=== PATIENT | male | born 1955 | race Caucasian/White ===

== ENCOUNTER → 2017-10-12 08:43 | Outpatient (CLI) | payer BC, SELFPAY ==
[2017-10-12 13:02] LABS: Absolute Lymphocyte Count 1.64 X10^3/ul (0.83-4.51); Absolute Neutrophil Count 2.6 X10^3/uL (2.0-7.7); Basophil# 0.03 X10^3/uL; Basophil% 0.6 % (0-1); Eosinophil# 0.34 X10^3/uL; Eosinophils% 6.4 % (0-5); Hematocrit 42.6 % (40-54); Hemoglobin 13.3 g/dl (13.0-16.5); Lymphocyte # 1.64 X10^3/ul (4.0); Lymphocyte % 31.1 % (19-41); Mean Corp Hgb Conc 31.2 g/gl (32-36); Mean Corpuscular Hgb 27.2 pg (27.0-32.0); Mean Corpuscular Volume 87.1 fL (80-94); Mean Platelet Vol. 11.4 fl (6.2-12.0); Monocyte# 0.65 X10^3/uL; Monocyte% 12.3 % (0-10); Neutrophil # 2.62 X10^3/uL (2.7-7.7); Neutrophil % 49.6 % (47-70); Platelet Count 269 K/mm3 (150-450); RBC Distribution Width CV 17.3 % (11.6-14.6); RBC Distribution Width SD 55.3 fl (35.1-43.9); Red Blood Count 4.89 M/mm3 (4.6-6.2); White Blood Count 5.3 K/mm3 (4.4-11.0)
[2017-10-12 13:05] LABS: POSITIVE COUNT NO; POSITIVE DIFFERENTIAL NO; POSITIVE MORPHOLOGY NO
[2017-10-12 13:07] LABS: Hemoglobin A1c 9.3 % (4.2-6.3)
[2017-10-12 13:13] LABS: ALB/GLOB Ratio 0.9 RATIO (0.9-2.4); AST(SGOT) 31 U/L (15-37); Alanine Aminotransfer ALT/SGPT 47 U/L (16-61); Albumin, Serum 3.9 g/dL (3.2-5.0); Alkaline Phosphatase 98 U/L (45-117); Anion Gap 8 (5-15); BUN 42 mg/dL (7-18); BUN/Creat Ratio 14.1 RATIO (10-20); Calcium,Total 9.3 mg/dL (8.5-10.1); Chloride 97 mmol/L (98-107); Creatinine, Serum 2.97 mg/dL (0.70-1.30); EST Glomerular Filtration Rate 23 mL/min (>60); Est Glom Filt Rate - Afr Amer 28 mL/min (>60); Globulin 4.4 g/dL (2.2-4.2); Glucose 151 mg/dL (74-106); Potassium 5.2 mmol/L (3.5-5.1); Protein, Total 8.3 g/dL (6.4-8.2); Sodium Level 135 mmol/L (136-145); Thyroid Stim Hormone (TSH) 2.87 uIU/mL (0.358-3.74)
[2017-10-12 13:18] LABS: Microalbumin:Creatinine Ratio 28.9 mg/g CRE (<30 mg/g CRE)
== END ==
PROVIDERS: Family Provider Family Medicine; PCP Family Medicine; Visit Provider Family Medicine
DX: E11.65 Type 2 diabetes mellitus with hyperglycemia (principal); E78.5 Hyperlipidemia, unspecified; E11.22 Type 2 diabetes mellitus with diabetic chronic kidney disease; N18.9 Chronic kidney disease, unspecified
CPT/HCPCS: 36415; 80053; 82043; 82570; 83036; 84443; 85025

== ENCOUNTER → 2017-10-13 08:13 | Outpatient (CLI) | payer BC, SELFPAY ==
[2017-10-13 12:21] LABS: ALB/GLOB Ratio 0.8 RATIO (0.9-2.4); AST(SGOT) 41 U/L (15-37); Alanine Aminotransfer ALT/SGPT 52 U/L (16-61); Albumin, Serum 3.7 g/dL (3.2-5.0); Alkaline Phosphatase 96 U/L (45-117); Anion Gap 8 (5-15); BUN 29 mg/dL (7-18); BUN/Creat Ratio 17.1 RATIO (10-20); Calcium,Total 8.9 mg/dL (8.5-10.1); Chloride 100 mmol/L (98-107); EST Glomerular Filtration Rate 43 mL/min (>60); Est Glom Filt Rate - Afr Amer 53 mL/min (>60); Globulin 4.4 g/dL (2.2-4.2); Glucose 176 mg/dL (74-106); Potassium 4.4 mmol/L (3.5-5.1); Protein, Total 8.1 g/dL (6.4-8.2); Sodium Level 136 mmol/L (136-145)
== END ==
PROVIDERS: Family Provider Family Medicine; PCP Family Medicine; Visit Provider Family Medicine
DX: N18.9 Chronic kidney disease, unspecified (principal)
CPT/HCPCS: 36415; 80053

== ENCOUNTER → 2017-10-16 08:45 | Outpatient (CLI) | payer BC, SELFPAY ==
[2017-10-16 13:02] LABS: Anion Gap 4 (5-15); BUN 15 mg/dL (7-18); BUN/Creat Ratio 10.2 RATIO (10-20); Calcium,Total 8.5 mg/dL (8.5-10.1); Chloride 102 mmol/L (98-107); Creatinine, Serum 1.47 mg/dL (0.70-1.30); EST Glomerular Filtration Rate 51 mL/min (>60); Est Glom Filt Rate - Afr Amer 62 mL/min (>60); Glucose 237 mg/dL (74-106); Potassium 4.6 mmol/L (3.5-5.1); Sodium Level 135 mmol/L (136-145)
== END ==
PROVIDERS: Family Provider Family Medicine; PCP Family Medicine; Visit Provider Family Medicine
DX: N17.9 Acute kidney failure, unspecified (principal); E86.0 Dehydration
CPT/HCPCS: 36415; 80048

== ENCOUNTER → 2017-10-30 08:21 | Outpatient (CLI) | payer BC, SELFPAY ==
[2017-10-30 12:18] LABS: Anion Gap 4 (5-15); BUN 13 mg/dL (7-18); BUN/Creat Ratio 9.2 RATIO (10-20); Calcium,Total 8.4 mg/dL (8.5-10.1); Chloride 100 mmol/L (98-107); Creatinine, Serum 1.42 mg/dL (0.70-1.30); EST Glomerular Filtration Rate 53 mL/min (>60); Est Glom Filt Rate - Afr Amer 65 mL/min (>60); Glucose 198 mg/dL (74-106); Potassium 4.4 mmol/L (3.5-5.1); Sodium Level 136 mmol/L (136-145)
== END ==
PROVIDERS: Family Provider Family Medicine; PCP Family Medicine; Visit Provider Family Medicine
DX: N17.9 Acute kidney failure, unspecified (principal)
CPT/HCPCS: 36415; 80048

== ENCOUNTER → 2017-11-17 10:01 | Outpatient (CLI) | payer BC, SELFPAY ==
[2017-11-17 11:48] LABS: PSA,Total - Annual Screen 1.63 ng/mL (0.00-4.00)
== END ==
PROVIDERS: Family Provider Family Medicine; PCP Family Medicine; Visit Provider Nurse Practitioner Adult Health
DX: E29.1 Testicular hypofunction (principal); Z12.5 Encounter for screening for malignant neoplasm of prostate
CPT/HCPCS: 36415; 84153; 84403; G0103

== ENCOUNTER → 2018-01-18 08:46 | Outpatient (CLI) | payer BC, SELFPAY ==
--- NOTE | 2018-01-18 08:46 | DT_ITS ---
This patient was seen during an EMR downtime January 11, 2018 - January 18, 2018. This patient may have a combination of paper and electronic documentation or all paper documentation. All documentation is viewable within the e-chart portion of [facility] for each patient visit.
[2018-01-18 12:28] LABS: Absolute Lymphocyte Count 1.55 X10^3/ul (0.83-4.51); Absolute Neutrophil Count 1.6 X10^3/uL (2.0-7.7); Basophil# 0.04 X10^3/uL; Eosinophil# 0.19 X10^3/uL; Eosinophils% 4.9 % (0-5); Hematocrit 42.4 % (40-54); Lymphocyte # 1.55 X10^3/ul (4.0); Lymphocyte % 39.7 % (19-41); Mean Corp Hgb Conc 30.7 g/gl (32-36); Mean Corpuscular Hgb 25.8 pg (27.0-32.0); Mean Corpuscular Volume 84.1 fL (80-94); Monocyte# 0.54 X10^3/uL; Monocyte% 13.8 % (0-10); Neutrophil # 1.58 X10^3/uL (2.7-7.7); Neutrophil % 40.6 % (47-70); Platelet Count 257 K/mm3 (150-450); RBC Distribution Width SD 48.7 fl (35.1-43.9); Red Blood Count 5.04 M/mm3 (4.6-6.2); White Blood Count 3.9 K/mm3 (4.4-11.0)
[2018-01-18 12:38] LABS: ALB/GLOB Ratio 0.8 RATIO (0.9-2.4); AST(SGOT) 27 U/L (15-37); Alanine Aminotransfer ALT/SGPT 36 U/L (16-61); Albumin, Serum 3.5 g/dL (3.2-5.0); Alkaline Phosphatase 87 U/L (45-117); Anion Gap 6 (5-15); BUN 21 mg/dL (7-18); Calcium,Total 8.8 mg/dL (8.5-10.1); Chloride 101 mmol/L (98-107); EST Glomerular Filtration Rate 50 mL/min (>60); Est Glom Filt Rate - Afr Amer 61 mL/min (>60); Globulin 4.2 g/dL (2.2-4.2); Glucose 221 mg/dL (74-106); Potassium 4.4 mmol/L (3.5-5.1); Protein, Total 7.7 g/dL (6.4-8.2); Sodium Level 138 mmol/L (136-145)
[2018-01-18 12:40] LABS: POSITIVE COUNT NO; POSITIVE DIFFERENTIAL NO; POSITIVE MORPHOLOGY NO
== END ==
PROVIDERS: Family Provider Family Medicine; PCP Family Medicine; Visit Provider Family Medicine
DX: N18.9 Chronic kidney disease, unspecified (principal); E11.65 Type 2 diabetes mellitus with hyperglycemia; E78.5 Hyperlipidemia, unspecified
CPT/HCPCS: 36415; 80053; 84443; 85025

== ENCOUNTER 2018-03-05 07:53 | Day surgery (SDC) | payer BC, SELFPAY ==
[2018-03-05 08:17] VITALS: BP 164/76; PULSE 72; RESP 14; TEMP 36.9; O2SAT 98; BMI 30.5
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
[2018-03-05 08:46] LABS: Bedside Glucose 91 mg/dL (70-110)
--- NOTE | 2018-03-05 09:32 | PCM.OPRPT ---
Problem List (1) Screen for colon cancer Status: Acute Report of Operation Date of Procedure: 03/05/18 Pre-Operative Diagnosis: Screening for colon cancer Post-Operative Diagnosis: Normal colonoscopy Surgery/Procedure Performed:: Colonoscopy Description of Procedure: The major risks and benefits associated with the procedure were explained to the patient in detail. The patient verbalized understanding and agreement with the same. The patient was brought to the endoscopy suite. After adequate sedation was achieved, the patient was placed in the left lateral decubitus position and a digital rectal exam was performed. This examination was within normal limits. A well-lubricated colonoscope was then inserted into the rectum and advanced under direct visualization to the level of the cecum. The bowel prep was fair. The cecum was identified by both visual and anatomic landmarks. A photograph was taken of the end of the cecum. The scope was then fully withdrawn while examining the color, texture, anatomy and integrity of the mucosa from the cecum to the anal canal. The findings were consistent with normal colonic mucosa. Over 6 minutes were taken to examine the colonic mucosa. Upon reaching the rectum the scope was retroflexed to examine the distal rectal vault. The scope was then straightened and was completely retrieved upon exiting the anal canal and the procedure was terminated. The patient was then transferred to the recovery room in stable condition. Recommendations for follow up: 10 years
[2018-03-05 09:35] VITALS: BP 113/52; BP 164/76; PULSE 65; RESP 16; TEMP 36.1; O2SAT 97
[2018-03-05 09:40] VITALS: BP 122/54; BP 164/76; PULSE 65; RESP 16; O2SAT 98
[2018-03-05 09:45] VITALS: BP 141/75; BP 164/76; PULSE 64; RESP 18; O2SAT 98
[2018-03-05 09:50] VITALS: BP 158/76; BP 164/76; PULSE 67; RESP 18; TEMP 36.6; O2SAT 98
[2018-03-05 10:04] VITALS: BP 164/76
== END 2018-03-05 10:25 | disposition home or self-care (01) ==
LOC: EN 07:54 → AC 07:55
PROVIDERS: Family Provider Family Medicine; PCP Family Medicine; Visit Provider Surgery
PROC: 0DJD8ZZ Inspection of Lower Intestinal Tract, Via Natural or Artificial Opening Endoscopic (ICD-10-PCS; CPT 45378; principal; 2018-03-05 08:55)
DX: Z12.11 Encounter for screening for malignant neoplasm of colon (principal); I10 Essential (primary) hypertension; K44.9 Diaphragmatic hernia without obstruction or gangrene; E11.9 Type 2 diabetes mellitus without complications; E78.00 Pure hypercholesterolemia, unspecified; M79.2 Neuralgia and neuritis, unspecified; G25.81 Restless legs syndrome; Z87.898 Personal history of other specified conditions; Z97.8 Presence of other specified devices; Z79.4 Long term (current) use of insulin; Z79.899 Other long term (current) drug therapy
CPT/HCPCS: 45378; 82962; J7120

== ENCOUNTER → 2018-05-12 15:22 | Outpatient (CLI) | payer BC, SELFPAY ==
[2018-05-12 17:32] LABS: Anion Gap 4 (5-15); BUN 19 mg/dL (7-18); BUN/Creat Ratio 11.6 RATIO (10-20); Calcium,Total 8.8 mg/dL (8.5-10.1); Chloride 105 mmol/L (98-107); Creatinine, Serum 1.64 mg/dL (0.70-1.30); EST Glomerular Filtration Rate 45 mL/min (>60); Est Glom Filt Rate - Afr Amer 55 mL/min (>60); Glucose 144 mg/dL (74-106); Potassium 4.9 mmol/L (3.5-5.1); Sodium Level 139 mmol/L (136-145)
[2018-05-12 17:45] LABS: Vitamin B12 375 pg/mL (211-911)
== END ==
PROVIDERS: Family Provider Family Medicine; PCP Family Medicine; Visit Provider Family Medicine
DX: I10 Essential (primary) hypertension (principal); G62.9 Polyneuropathy, unspecified
CPT/HCPCS: 36415; 80048; 82607

== ENCOUNTER → 2018-10-22 09:35 | Outpatient (CLI) | payer BC, SELFPAY ==
[2018-10-22 12:40] LABS: Absolute Lymphocyte Count 0.97 X10^3/ul (0.83-4.51); Absolute Neutrophil Count 1.6 X10^3/uL (2.0-7.7); Basophil# 0.04 X10^3/uL; Basophil% 1.2 % (0-1); Eosinophil# 0.26 X10^3/uL; Eosinophils% 7.8 % (0-5); Hematocrit 43.5 % (40-54); Hemoglobin 13.7 g/dl (13.0-16.5); Lymphocyte # 0.97 X10^3/ul (4.0); Mean Corp Hgb Conc 31.5 g/gl (32-36); Mean Corpuscular Hgb 27.8 pg (27.0-32.0); Mean Corpuscular Volume 88.4 fL (80-94); Mean Platelet Vol. 10.9 fl (6.2-12.0); Monocyte# 0.49 X10^3/uL; Monocyte% 14.6 % (0-10); Neutrophil # 1.58 X10^3/uL (2.7-7.7); Neutrophil % 47.1 % (47-70); Platelet Count 215 K/mm3 (150-450); RBC Distribution Width CV 16.3 % (11.6-14.6); RBC Distribution Width SD 52.1 fl (35.1-43.9); Red Blood Count 4.92 M/mm3 (4.6-6.2); White Blood Count 3.4 K/mm3 (4.4-11.0)
[2018-10-22 12:43] LABS: POSITIVE COUNT NO; POSITIVE DIFFERENTIAL NO; POSITIVE MORPHOLOGY NO
[2018-10-22 12:54] LABS: ALB/GLOB Ratio 0.9 RATIO (0.9-2.4); AST(SGOT) 48 U/L (15-37); Alanine Aminotransfer ALT/SGPT 45 U/L (16-61); Albumin, Serum 3.7 g/dL (3.2-5.0); Alkaline Phosphatase 91 U/L (45-117); Anion Gap 3 (5-15); BUN 20 mg/dL (7-18); BUN/Creat Ratio 13.7 RATIO (10-20); Calcium,Total 8.5 mg/dL (8.5-10.1); Chloride 104 mmol/L (98-107); Creatinine, Serum 1.46 mg/dL (0.70-1.30); EST Glomerular Filtration Rate 52 mL/min (>60); Est Glom Filt Rate - Afr Amer 62 mL/min (>60); Globulin 3.9 g/dL (2.2-4.2); Glucose 86 mg/dL (74-106); Magnesium 2.4 mg/dL (1.6-2.6); Potassium 4.4 mmol/L (3.5-5.1); Protein, Total 7.6 g/dL (6.4-8.2); Sodium Level 135 mmol/L (136-145)
[2018-10-22 12:57] LABS: Vitamin B12 631 pg/mL (211-911)
== END ==
PROVIDERS: Family Provider Family Medicine; PCP Family Medicine; Visit Provider Family Medicine
DX: E11.22 Type 2 diabetes mellitus with diabetic chronic kidney disease (principal); N18.9 Chronic kidney disease, unspecified; E11.65 Type 2 diabetes mellitus with hyperglycemia; E53.8 Deficiency of other specified B group vitamins; R25.2 Cramp and spasm
CPT/HCPCS: 36415; 80053; 82607; 83735; 85025

== ENCOUNTER → 2019-01-26 | Outpatient (CLI) | payer BC, SELFPAY ==
[2019-01-26 12:37] LABS: Absolute Lymphocyte Count 1.93 X10^3/ul (0.83-4.51); Absolute Neutrophil Count 2.5 X10^3/uL (2.0-7.7); Basophil# 0.04 X10^3/uL; Basophil% 0.7 % (0-1); Eosinophil# 0.31 X10^3/uL; Eosinophils% 5.7 % (0-5); Hematocrit 45.1 % (40-54); Hemoglobin 14.7 g/dl (13.0-16.5); Lymphocyte # 1.93 X10^3/ul (4.0); Lymphocyte % 35.2 % (19-41); Mean Corp Hgb Conc 32.6 g/gl (32-36); Mean Corpuscular Hgb 27.5 pg (27.0-32.0); Mean Corpuscular Volume 84.5 fL (80-94); Mean Platelet Vol. 10.8 fl (6.2-12.0); Monocyte# 0.66 X10^3/uL; Neutrophil # 2.54 X10^3/uL (2.7-7.7); Neutrophil % 46.4 % (47-70); Platelet Count 274 K/mm3 (150-450); RBC Distribution Width CV 15.6 % (11.6-14.6); Red Blood Count 5.34 M/mm3 (4.6-6.2); White Blood Count 5.5 K/mm3 (4.4-11.0)
[2019-01-26 12:39] LABS: POSITIVE COUNT NO; POSITIVE DIFFERENTIAL NO; POSITIVE MORPHOLOGY NO
[2019-01-26 13:07] LABS: ALB/GLOB Ratio 0.8 RATIO (0.9-2.4); AST(SGOT) 32 U/L (15-37); Alanine Aminotransfer ALT/SGPT 45 U/L (16-61); Albumin, Serum 3.8 g/dL (3.2-5.0); Alkaline Phosphatase 103 U/L (45-117); Anion Gap 8 (5-15); BUN 23 mg/dL (7-18); Calcium,Total 9.6 mg/dL (8.5-10.1); Chloride 103 mmol/L (98-107); Creatinine, Serum 1.44 mg/dL (0.70-1.30); EST Glomerular Filtration Rate 52 mL/min (>60); Est Glom Filt Rate - Afr Amer 63 mL/min (>60); Globulin 4.8 g/dL (2.2-4.2); Glucose 75 mg/dL (74-106); Potassium 4.1 mmol/L (3.5-5.1); Protein, Total 8.6 g/dL (6.4-8.2); Sodium Level 140 mmol/L (136-145)
== END | disposition home or self-care (01) ==
LOC: BFHLAB 10:24
PROVIDERS: Family Provider Family Medicine; PCP Family Medicine; Visit Provider Family Medicine
DX: E11.65 Type 2 diabetes mellitus with hyperglycemia (principal); R79.89 Other specified abnormal findings of blood chemistry; E11.22 Type 2 diabetes mellitus with diabetic chronic kidney disease; N18.9 Chronic kidney disease, unspecified
CPT/HCPCS: 36415; 80053; 85025

== ENCOUNTER → 2019-04-27 10:41 | Outpatient (CLI) | payer BC, SELFPAY ==
[2019-04-27 12:32] LABS: Erythrocyte Sedimentation Rate 27 mm/hr (0-20)
[2019-04-27 12:36] LABS: Absolute Neutrophil Count 5.6 X10^3/uL (2.0-7.7); Basophil# 0.06 X10^3/uL; Basophil% 0.8 % (0-1); Eosinophil# 0.25 X10^3/uL; Eosinophils% 3.3 % (0-5); Hematocrit 40.9 % (40-54); Hemoglobin 12.5 g/dL (13.0-16.5); Lymphocyte % 13.1 % (19-41); Mean Corp Hgb Conc 30.6 g/dL (32-36); Mean Corpuscular Hgb 26.3 pg (27.0-32.0); Mean Corpuscular Volume 85.9 fL (80-94); Monocyte# 0.68 X10^3/uL; Monocyte% 8.9 % (0-10); NRBC Flagged by Analyzer 0 % (0-5); Neutrophil # 5.62 X10^3/uL (2.7-7.7); Neutrophil % 73.4 % (47-70); Platelet Count 278 K/mm3 (150-450); RBC Distribution Width CV 16.7 % (11.6-14.6); RBC Distribution Width SD 52.8 fl (35.1-43.9); Red Blood Count 4.76 M/mm3 (4.6-6.2); White Blood Count 7.7 K/mm3 (4.4-11.0)
[2019-04-27 12:52] LABS: Anion Gap 7 (5-15); BUN 27 mg/dL (7-18); BUN/Creat Ratio 15.2 RATIO (10-20); CRP 6.47 mg/L (0.0-3.0); Calcium,Total 8.4 mg/dL (8.5-10.1); Chloride 105 mmol/L (98-107); Creatinine, Serum 1.78 mg/dL (0.70-1.30); EST Glomerular Filtration Rate 41 mL/min (>60); Est Glom Filt Rate - Afr Amer 50 mL/min (>60); Glucose 181 mg/dL (74-106); Potassium 4.9 mmol/L (3.5-5.1); Rheumatoid Factor < 10.0 IU/mL (<15); Sodium Level 138 mmol/L (136-145); Vitamin B12 379 pg/mL (211-911)
[2019-04-29 16:34] LABS: CCP IgG Antibodies 9 units (0-19)
== END ==
PROVIDERS: Family Provider Family Medicine; PCP Family Medicine; Visit Provider Family Medicine
DX: E11.65 Type 2 diabetes mellitus with hyperglycemia (principal); E11.22 Type 2 diabetes mellitus with diabetic chronic kidney disease; I12.9 Hypertensive chronic kidney disease with stage 1 through stage 4 chronic kidney disease, or unspecified chronic kidney disease; N18.9 Chronic kidney disease, unspecified; M06.4 Inflammatory polyarthropathy
CPT/HCPCS: 36415; 80048; 82607; 85025; 85652; 86140; 86200; 86431

== ENCOUNTER → 2019-05-10 11:03 | Outpatient (CLI) | payer BC, SELFPAY ==
[2019-05-10 13:01] LABS: Anion Gap 7 (5-15); BUN 22 mg/dL (7-18); BUN/Creat Ratio 12.9 RATIO (10-20); Calcium,Total 8.9 mg/dL (8.5-10.1); Chloride 102 mmol/L (98-107); EST Glomerular Filtration Rate 43 mL/min (>60); Est Glom Filt Rate - Afr Amer 52 mL/min (>60); Glucose 142 mg/dL (74-106); Potassium 4.9 mmol/L (3.5-5.1); Sodium Level 137 mmol/L (136-145)
== END ==
PROVIDERS: Family Provider Family Medicine; PCP Family Medicine; Visit Provider Family Medicine
DX: N18.9 Chronic kidney disease, unspecified (principal)
CPT/HCPCS: 36415; 80048

== ENCOUNTER → 2019-06-23 09:24 | Outpatient (CLI) | payer BC, SELFPAY ==
[2019-06-23 12:22] LABS: Anion Gap 9 (5-15); BUN 18 mg/dL (7-18); BUN/Creat Ratio 10.8 RATIO (10-20); Calcium,Total 8.9 mg/dL (8.5-10.1); Chloride 101 mmol/L (98-107); Creatinine, Serum 1.67 mg/dL (0.70-1.30); EST Glomerular Filtration Rate 44 mL/min (>60); Est Glom Filt Rate - Afr Amer 53 mL/min (>60); Glucose 93 mg/dL (74-106); Potassium 4.2 mmol/L (3.5-5.1); Sodium Level 138 mmol/L (136-145)
== END ==
PROVIDERS: Family Provider Family Medicine; PCP Family Medicine; Visit Provider Family Medicine
DX: N18.9 Chronic kidney disease, unspecified (principal)
CPT/HCPCS: 36415; 80048

== ENCOUNTER → 2019-07-21 08:29 | Outpatient (CLI) | payer BC, SELFPAY ==
[2019-07-21 12:22] LABS: Absolute Lymphocyte Count 1.41 X10^3/uL (0.83-4.51); Absolute Neutrophil Count 2.3 X10^3/uL (2.0-7.7); Basophil# 0.05 X10^3/uL; Basophil% 1.1 % (0-1); Eosinophil# 0.34 X10^3/uL; Eosinophils% 7.4 % (0-5); Hematocrit 46.4 % (40-54); Hemoglobin 14.3 g/dL (13.0-16.5); Lymphocyte # 1.41 X10^3/ul (4.0); Lymphocyte % 30.7 % (19-41); Mean Corp Hgb Conc 30.8 g/dL (32-36); Mean Corpuscular Hgb 25.3 pg (27.0-32.0); Mean Platelet Vol. 10.7 fl (6.2-12.0); Monocyte# 0.51 X10^3/uL; Monocyte% 11.1 % (0-10); NRBC Flagged by Analyzer 0 % (0-5); Neutrophil # 2.27 X10^3/uL (2.7-7.7); Neutrophil % 49.5 % (47-70); Platelet Count 352 K/mm3 (150-450); RBC Distribution Width CV 18.4 % (11.6-14.6); RBC Distribution Width SD 52.1 fl (35.1-43.9); Red Blood Count 5.66 M/mm3 (4.6-6.2); White Blood Count 4.6 K/mm3 (4.4-11.0)
[2019-07-21 13:02] LABS: Anion Gap 8 (5-15); BUN 13 mg/dL (7-18); BUN/Creat Ratio 8.4 RATIO (10-20); Calcium,Total 8.7 mg/dL (8.5-10.1); Chloride 103 mmol/L (98-107); Creatinine, Serum 1.55 mg/dL (0.70-1.30); EST Glomerular Filtration Rate 48 mL/min (>60); Est Glom Filt Rate - Afr Amer 58 mL/min (>60); Ferritin 5 ng/mL (26-388); Glucose 112 mg/dL (74-106); Iron 26 ug/dL (65-175); Potassium 4.2 mmol/L (3.5-5.1); Sodium Level 138 mmol/L (136-145)
[2019-07-21 13:13] LABS: Vitamin B12 > 2000 pg/mL (211-911); Vitamin D,25 Hydroxy 34.2 ng/mL (29.95-100.01)
== END ==
PROVIDERS: Family Provider Family Medicine; PCP Family Medicine; Visit Provider Family Medicine
DX: N18.9 Chronic kidney disease, unspecified (principal); E53.8 Deficiency of other specified B group vitamins; D64.9 Anemia, unspecified
CPT/HCPCS: 36415; 80048; 82306; 82607; 82728; 82746; 83540; 85025

== ENCOUNTER → 2019-09-06 09:14 | Outpatient (CLI) | payer BC, SELFPAY ==
[2019-09-06 12:18] LABS: Absolute Lymphocyte Count 1.28 X10^3/uL (0.83-4.51); Absolute Neutrophil Count 2.2 X10^3/uL (2.0-7.7); Basophil# 0.06 X10^3/uL; Basophil% 1.4 % (0-1); Eosinophil# 0.29 X10^3/uL; Eosinophils% 6.6 % (0-5); Hematocrit 45.9 % (40-54); Hemoglobin 14.5 g/dL (13.0-16.5); Lymphocyte # 1.28 X10^3/ul (4.0); Lymphocyte % 29.3 % (19-41); Mean Corp Hgb Conc 31.6 g/dL (32-36); Mean Corpuscular Hgb 25.9 pg (27.0-32.0); Mean Corpuscular Volume 82.1 fL (80-94); Mean Platelet Vol. 10.8 fl (6.2-12.0); Monocyte% 11.4 % (0-10); NRBC Flagged by Analyzer 0 % (0-5); Neutrophil # 2.23 X10^3/uL (2.7-7.7); Neutrophil % 51.1 % (47-70); Platelet Count 340 K/mm3 (150-450); RBC Distribution Width CV 19.9 % (11.6-14.6); RBC Distribution Width SD 56.9 fl (35.1-43.9); Red Blood Count 5.59 M/mm3 (4.6-6.2); White Blood Count 4.4 K/mm3 (4.4-11.0)
[2019-09-06 12:50] LABS: ALB/GLOB Ratio 0.8 RATIO (0.9-2.4); AST(SGOT) 30 U/L (15-37); Alanine Aminotransfer ALT/SGPT 46 U/L (16-61); Albumin, Serum 3.3 g/dL (3.2-5.0); Alkaline Phosphatase 98 U/L (45-117); Anion Gap 5 (5-15); BUN 17 mg/dL (7-18); BUN/Creat Ratio 10.1 RATIO (10-20); Calcium,Total 8.7 mg/dL (8.5-10.1); Chloride 103 mmol/L (98-107); Creatinine, Serum 1.69 mg/dL (0.70-1.30); EST Glomerular Filtration Rate 43 mL/min (>60); Est Glom Filt Rate - Afr Amer 53 mL/min (>60); Ferritin 8 ng/mL (26-388); Globulin 4.3 g/dL (2.2-4.2); Glucose 192 mg/dL (74-106); Iron 33 ug/dL (65-175); Potassium 4.3 mmol/L (3.5-5.1); Protein, Total 7.6 g/dL (6.4-8.2); Sodium Level 139 mmol/L (136-145); Thyroid Stim Hormone (TSH) 3.34 uIU/mL (0.358-3.74)
== END ==
PROVIDERS: PCP Family Medicine; Visit Provider Family Medicine
DX: E11.22 Type 2 diabetes mellitus with diabetic chronic kidney disease (principal); I12.9 Hypertensive chronic kidney disease with stage 1 through stage 4 chronic kidney disease, or unspecified chronic kidney disease; E11.65 Type 2 diabetes mellitus with hyperglycemia; N18.9 Chronic kidney disease, unspecified; D50.9 Iron deficiency anemia, unspecified
CPT/HCPCS: 36415; 80053; 82728; 83540; 84443; 85025

== ENCOUNTER → 2019-10-06 09:36 | Outpatient (CLI) | payer BC, SELFPAY ==
[2019-10-06 10:55] LABS: PSA,Total- Diagnostic 0.97 ng/mL (0.0-4.0)
== END ==
PROVIDERS: PCP Family Medicine; Referring Provider Urology; Visit Provider Urology
DX: Z12.5 Encounter for screening for malignant neoplasm of prostate (principal)
CPT/HCPCS: 36415; 84153

== ENCOUNTER → 2019-11-18 08:50 | Outpatient (CLI) | payer BC, SELFPAY ==
[2019-11-18 10:00] LABS: Absolute Lymphocyte Count 1.65 X10^3/uL (0.83-4.51); Absolute Neutrophil Count 1.8 X10^3/uL (2.0-7.7); Basophil# 0.06 X10^3/uL; Basophil% 1.4 % (0-1); Eosinophil# 0.28 X10^3/uL; Eosinophils% 6.5 % (0-5); Hematocrit 48.8 % (40-54); Hemoglobin 15.3 g/dL (13.0-16.5); Lymphocyte # 1.65 X10^3/ul (4.0); Lymphocyte % 38.3 % (19-41); Mean Corp Hgb Conc 31.4 g/dL (32-36); Mean Corpuscular Hgb 26.8 pg (27.0-32.0); Mean Corpuscular Volume 85.5 fL (80-94); Mean Platelet Vol. 10.7 fl (6.2-12.0); Monocyte# 0.56 X10^3/uL; NRBC Flagged by Analyzer 0 % (0-5); Neutrophil # 1.76 X10^3/uL (2.7-7.7); Neutrophil % 40.8 % (47-70); Platelet Count 287 K/mm3 (150-450); RBC Distribution Width CV 19.3 % (11.6-14.6); RBC Distribution Width SD 58.9 fl (35.1-43.9); Red Blood Count 5.71 M/mm3 (4.6-6.2); White Blood Count 4.3 K/mm3 (4.4-11.0)
[2019-11-18 10:22] LABS: ALB/GLOB Ratio 0.8 RATIO (0.9-2.4); AST(SGOT) 39 U/L (15-37); Alanine Aminotransfer ALT/SGPT 46 U/L (16-61); Albumin, Serum 3.7 g/dL (3.2-5.0); Alkaline Phosphatase 121 U/L (45-117); Anion Gap 7 (5-15); BUN 20 mg/dL (7-18); BUN/Creat Ratio 11.6 RATIO (10-20); Calcium,Total 8.7 mg/dL (8.5-10.1); Chloride 102 mmol/L (98-107); Creatinine, Serum 1.73 mg/dL (0.70-1.30); EST Glomerular Filtration Rate 42 mL/min (>60); Est Glom Filt Rate - Afr Amer 51 mL/min (>60); Ferritin 17 ng/mL (26-388); Globulin 4.5 g/dL (2.2-4.2); Glucose 93 mg/dL (74-106); Iron 115 ug/dL (65-175); Potassium 4.3 mmol/L (3.5-5.1); Protein, Total 8.2 g/dL (6.4-8.2); Sodium Level 137 mmol/L (136-145); Thyroid Stim Hormone (TSH) 3.31 uIU/mL (0.358-3.74)
== END ==
PROVIDERS: PCP Family Medicine; Referring Provider Family Medicine; Visit Provider Family Medicine
DX: E11.22 Type 2 diabetes mellitus with diabetic chronic kidney disease (principal); I12.9 Hypertensive chronic kidney disease with stage 1 through stage 4 chronic kidney disease, or unspecified chronic kidney disease; N18.9 Chronic kidney disease, unspecified; D50.9 Iron deficiency anemia, unspecified; E11.65 Type 2 diabetes mellitus with hyperglycemia
CPT/HCPCS: 36415; 80053; 82728; 83540; 84443; 85025

== ENCOUNTER → 2019-12-23 08:09 | Outpatient (CLI) | payer BC, SELFPAY ==
[2019-12-23 08:02] VITALS: BMI 32.7
--- NOTE | 2019-12-23 08:10 | RAD_ITS ---
STUDY: X-RAY - RIGHT KNEE REASON FOR EXAM: Male, 64 years old. KNEE PAIN AND SWELLING TECHNIQUE: 4 view(s) of the knee. COMPARISON: None. FINDINGS: Normal visualized distal femur. Normal visualized proximal tibia and fibula. Normal proximal tibiofibular articulation. There is mild degenerative arthrosis of the medial femorotibial compartment. Normal lateral femorotibial compartment. Normal patellofemoral articulation. Small joint effusion. RAD/Knee 4 or More Views IMPRESSION: Degenerative arthrosis. Small joint effusion. Electronically Signed: Trino Herbert, at 8:30 EDT , Service support ,
== END ==
PROVIDERS: PCP Family Medicine; Referring Provider Orthopaedic Surgery; Visit Provider Orthopaedic Surgery
DX: M25.561 Pain in right knee (principal)
CPT/HCPCS: 73564

== ENCOUNTER → 2020-02-22 11:36 | Outpatient (CLI) | payer BC, SELFPAY ==
[2019-12-23 08:02] VITALS: BMI 32.7
[2020-02-22 16:23] LABS: Absolute Lymphocyte Count 1.62 X10^3/uL (0.83-4.51); Absolute Neutrophil Count 1.9 X10^3/uL (2.0-7.7); Basophil# 0.05 X10^3/uL; Basophil% 1.2 % (0-1); Eosinophil# 0.19 X10^3/uL; Eosinophils% 4.5 % (0-5); Hematocrit 48.8 % (40-54); Hemoglobin 15.7 g/dL (13.0-16.5); Lymphocyte # 1.62 X10^3/ul (4.0); Lymphocyte % 38.4 % (19-41); Mean Corp Hgb Conc 32.2 g/dL (32-36); Mean Corpuscular Hgb 29.8 pg (27.0-32.0); Mean Corpuscular Volume 92.8 fL (80-94); Mean Platelet Vol. 11.4 fl (6.2-12.0); Monocyte# 0.49 X10^3/uL; Monocyte% 11.6 % (0-10); NRBC Flagged by Analyzer 0 % (0-5); Neutrophil # 1.86 X10^3/uL (2.7-7.7); Neutrophil % 44.1 % (47-70); Platelet Count 277 K/mm3 (150-450); RBC Distribution Width CV 15.1 % (11.6-14.6); RBC Distribution Width SD 51.3 fl (35.1-43.9); Red Blood Count 5.26 M/mm3 (4.6-6.2); White Blood Count 4.2 K/mm3 (4.4-11.0)
[2020-02-22 16:31] LABS: Hemoglobin A1c 6.6 % (3.8-5.6)
[2020-02-22 16:45] LABS: Vitamin B12 1700 pg/mL (211-911)
[2020-02-22 16:51] LABS: ALB/GLOB Ratio 0.8 RATIO (0.9-2.4); AST(SGOT) 27 U/L (15-37); Alanine Aminotransfer ALT/SGPT 43 U/L (16-61); Albumin, Serum 3.5 g/dL (3.2-5.0); Alkaline Phosphatase 92 U/L (45-117); Anion Gap 4 (5-15); BUN 19 mg/dL (7-18); BUN/Creat Ratio 10.7 RATIO (10-20); Calcium,Total 8.9 mg/dL (8.5-10.1); Chloride 105 mmol/L (98-107); Creatinine, Serum 1.78 mg/dL (0.70-1.30); EST Glomerular Filtration Rate 41 mL/min (>60); Est Glom Filt Rate - Afr Amer 49 mL/min (>60); Ferritin 11 ng/mL (26-388); Globulin 4.3 g/dL (2.2-4.2); Glucose 183 mg/dL (74-106); Iron 67 ug/dL (65-175); Potassium 4.7 mmol/L (3.5-5.1); Protein, Total 7.8 g/dL (6.4-8.2); Sodium Level 137 mmol/L (136-145)
== END ==
PROVIDERS: PCP Family Medicine; Visit Provider Family Medicine
DX: E11.65 Type 2 diabetes mellitus with hyperglycemia (principal); E11.22 Type 2 diabetes mellitus with diabetic chronic kidney disease; I12.9 Hypertensive chronic kidney disease with stage 1 through stage 4 chronic kidney disease, or unspecified chronic kidney disease; N18.9 Chronic kidney disease, unspecified; D50.9 Iron deficiency anemia, unspecified; E53.8 Deficiency of other specified B group vitamins
CPT/HCPCS: 36415; 80053; 82607; 82728; 83036; 83540; 85025

== ENCOUNTER → 2020-06-01 09:11 | Outpatient (CLI) | payer BC, SELFPAY ==
[2019-12-23 08:02] VITALS: BMI 32.7
[2020-06-01 12:23] LABS: Absolute Lymphocyte Count 1.19 X10^3/uL (0.83-4.51); Absolute Neutrophil Count 1.9 X10^3/uL (2.0-7.7); Basophil# 0.04 X10^3/uL; Eosinophils% 5.1 % (0-5); Hematocrit 47.3 % (40-54); Hemoglobin 14.9 g/dL (13.0-16.5); Lymphocyte # 1.19 X10^3/ul (4.0); Lymphocyte % 30.4 % (19-41); Mean Corp Hgb Conc 31.5 g/dL (32-36); Mean Corpuscular Hgb 28.4 pg (27.0-32.0); Mean Corpuscular Volume 90.3 fL (80-94); Mean Platelet Vol. 11.1 fl (6.2-12.0); Monocyte# 0.53 X10^3/uL; Monocyte% 13.6 % (0-10); NRBC Flagged by Analyzer 0 % (0-5); Neutrophil # 1.94 X10^3/uL (2.7-7.7); Neutrophil % 49.6 % (47-70); Platelet Count 250 K/mm3 (150-450); RBC Distribution Width CV 14.6 % (11.6-14.6); RBC Distribution Width SD 48.6 fl (35.1-43.9); Red Blood Count 5.24 M/mm3 (4.6-6.2); White Blood Count 3.9 K/mm3 (4.4-11.0)
[2020-06-01 12:39] LABS: Vitamin B12 1728 pg/mL (211-911); Vitamin D,25 Hydroxy 68.4 ng/mL
[2020-06-01 12:47] LABS: ALB/GLOB Ratio 0.8 RATIO (0.9-2.4); AST(SGOT) 43 U/L (15-37); Alanine Aminotransfer ALT/SGPT 49 U/L (16-61); Albumin, Serum 3.4 g/dL (3.2-5.0); Alkaline Phosphatase 81 U/L (45-117); Anion Gap 3 (5-15); BUN 19 mg/dL (7-18); BUN/Creat Ratio 9.1 RATIO (10-20); Calcium,Total 8.6 mg/dL (8.5-10.1); Chloride 104 mmol/L (98-107); Creatinine, Serum 2.09 mg/dL (0.70-1.30); EST Glomerular Filtration Rate 34 mL/min (>60); Est Glom Filt Rate - Afr Amer 41 mL/min (>60); Globulin 4.1 g/dL (2.2-4.2); Glucose 151 mg/dL (74-106); Iron 41 ug/dL (65-175); Potassium 4.6 mmol/L (3.5-5.1); Protein, Total 7.5 g/dL (6.4-8.2); Sodium Level 136 mmol/L (136-145); Thyroid Stim Hormone (TSH) 3.27 uIU/mL (0.358-3.74)
== END ==
PROVIDERS: PCP Family Medicine; Visit Provider Family Medicine
DX: E11.22 Type 2 diabetes mellitus with diabetic chronic kidney disease (principal); E11.65 Type 2 diabetes mellitus with hyperglycemia; I12.9 Hypertensive chronic kidney disease with stage 1 through stage 4 chronic kidney disease, or unspecified chronic kidney disease; N18.9 Chronic kidney disease, unspecified; E53.8 Deficiency of other specified B group vitamins; D50.9 Iron deficiency anemia, unspecified
CPT/HCPCS: 80053; 82306; 82607; 83540; 84443; 85025

== ENCOUNTER → 2020-06-15 07:48 | Outpatient (CLI) | payer BC, SELFPAY ==
[2019-12-23 08:02] VITALS: BMI 32.7
--- NOTE | 2020-06-15 07:50 | RDU_ITS ---
Reason For Study: CKD3 Right Renal Artery Left Renal Artery Right renal artery ostium 97.1/8.8 Left renal artery ostium 84.9 RSV/EDV. PSV/EDV. Right renal artery proximal Left renal artery proximal PSV/EDV 115.2/8.9 PSV/EDV. 72.2 . Right renal artery mid 112/13.5 Left renal artery mid 80.2/14.6 PSV/EDV. PSV/EDV . Right renal artery distal Left renal artery distal 74.7/14 137.9/16.1 PSV/EDV. PSV/EDV. Right Renal Parenchyma Left Renal Parenchyma Upper Pole Medula 33.6/4.5 PSV/EDV. Left upper pole medulla 40.4/7.5 Right upper pole medulla EDR 0.13 . PSV/EDV . Right upper pole medulla R.I. Left upper pole medulla EDR 0.18 . 0.87 . Left upper pole medulla R.I. 0.82 . Upper Jerman Cortx 18.8 PSV/EDV. UP Cortex 27.2 PSV/EDV. Right upper pole cortex EDR 0 . Left upper pole cortex EDR 0 . Right upper pole cortex R.I. 1.0 . Left upper pole cortex R.I. 1.0 . Right lower Pole medulla 24.5/4 Left lower Pole medulla 39.4/8.7 PSV/EDV . PSV/EDV . Right lower pole medulla EDR 0.16 . Left lower pole medulla EDR 0.22 . Right lower pole medulla R.I. Left lower pole medulla R.I. 0.78 . 0.84 . Lower Pole Cortx 28.4 PSV/EDV. Lower Pole Cortex 18.8 PSV/EDV. Left lower pole cortex EDR 0 . Right lower pole cortex EDR 0 . Left lower pole cortex R.I. 1.0 . Right lower pole cortex R.I. 1.0 . Left Renal Hilar Right Renal Hilar LT Hilar avg 44.9/9.8 PSV/EDV . Right Hilar avg 42.2/7.5 PSV/EDV. Left hilar acceleration time 20 Right hilar acceleration time 50 m/sec. m/sec. Left Renal Dimensions Right Renal Dimensions Left kidney size 13.25 cm . Right kidney size 12.32 cm . Left cortical dimension 1.56 cm . Right cortical dimension 1.66 cm . Aorta Proximal abdominal aorta 1.41 x 1.41 cm . Proximal abdominal aorta peak systolic velocity is 113.6 cm/sec . Distal abdominal aorta 1.37 x 1.37 cm . Distal abdominal aorta peak systolic velocity is 165 cm/sec . Interpretation Summary Dimensions of the intra-abdominal aorta appear normal, without evidence of aneurysmal dilatation. Renal artery velocities are bilaterally normal. Acceleration times are normal bilaterally. There is no evidence of hemodynamically significant renal artery stenosis on either side. Renovascular resistance appears to be bilaterally elevated . The right cortical dimension is increased. The left cortical dimension is increased. Kidneys appear normal in size bilaterally. Ordering Physician: Gino Lackey Referring Physician: Gino Lackey Performed By: Harmony Cali RVT and Student
[2020-06-15 09:49] LABS: Protein, Urine (Random) 24.4 mg/dL (<11.9); Protein:Creat Ratio 166 mg/g CRE (0-200)
[2020-06-19 09:19] LABS: Anti-dsDNA Ab <1 IU/mL (0-9)
[2020-06-19 16:08] LABS: Cytoplasmic Ab (C-ANCA) <1:20 titer (Neg:<1:20); Free Kappa Light Chains 31.5 mg/L (3.3-19.4); Free Lambda Light Chains 21.2 mg/L (5.7-26.3); PROEL- A/G Ratio 1.1 (0.7-1.7); PROEL- Albumin 3.8 g/dL (2.9-4.4); PROEL- Alpha-1 Globulin 0.2 g/dL (0.0-0.4); PROEL- Beta Globulin 1.2 g/dL (0.7-1.3); PROEL- Gamma Globulin 1.1 g/dL (0.4-1.8); PROEL- Globulin, Total 3.5 g/dL (2.2-3.9); PROEL- TOTAL PROTEIN 7.3 g/dL (6.0-8.5); PROELU- Albumin, Urine 47.2 % (.); PROELU- Alpha-1-Globulin,Ur 6.7 % (.); PROELU- Alpha-2-Globulin,Ur 15.4 % (.); PROELU- Beta Globulin, Ur 19.7 % (.); Total Protein, Ur 13.2 mg/dL (Not Estab.)
[2020-06-19 22:21] LABS: Complement C3 110 mg/dL (82-167); Perinuclear Ab (P-ANCA) <1:20 titer (Neg:<1:20)
== END ==
PROVIDERS: Internal Medicine Nephrology; PCP Family Medicine; Referring Provider Family Medicine; Visit Provider Family Medicine
DX: E11.22 Type 2 diabetes mellitus with diabetic chronic kidney disease (principal); I12.9 Hypertensive chronic kidney disease with stage 1 through stage 4 chronic kidney disease, or unspecified chronic kidney disease; Z18.32 Retained tooth
CPT/HCPCS: 36415; 82570; 83883; 84156; 84165; 84166; 86160; 86225; 86256; 93975

== ENCOUNTER → 2020-09-03 10:51 | Outpatient (CLI) | payer OTHER, SELFPAY ==
[2019-12-23 08:02] VITALS: BMI 32.7
--- NOTE | 2020-09-03 10:55 | RAD_ITS ---
STUDY: X-RAY - CERVICAL SPINE REASON FOR EXAM: Male, 65 years old. neck pain, severe cervical disc disease, now with right arm symptoms TECHNIQUE: 7 view(s) of the cervical spine were obtained. COMPARISON: None FINDINGS: Normal anterior atlantoaxial articulation. Normal odontoid process. Normal cervical lordosis. 2 mm of anterolisthesis of C4 on C5. 2 mm retrolisthesis of C5 on C6. These are unchanged on the flexion and extension views without instability. There is multi-level endplate spondylosis. There is multi-level degenerative disc disease with multilevel disc space narrowing. There is multi-level osseous foraminal stenosis. The soft tissue structures are unremarkable. RAD/Cerv Spine Obl/Flex/Ext Comp IMPRESSION: Moderate degenerative disc disease lower cervical spine with 2 mm of anterolisthesis of C4 on C5 and 2 mm retrolisthesis of C5 on C6. This is unchanged on the flexion and extension views. Electronically Signed: Harjinder Adamson MD at 8:07 EST Tel , Service support ,
[2020-09-03 12:46] LABS: Absolute Lymphocyte Count 0.74 X10^3/uL (0.83-4.51); Absolute Neutrophil Count 3.2 X10^3/uL (2.0-7.7); Basophil# 0.04 X10^3/uL; Basophil% 0.9 % (0-1); Eosinophil# 0.09 X10^3/uL; Hematocrit 47.5 % (40-54); Hemoglobin 14.9 g/dL (13.0-16.5); Lymphocyte # 0.74 X10^3/ul (4.0); Lymphocyte % 16.4 % (19-41); Mean Corp Hgb Conc 31.4 g/dL (32-36); Mean Corpuscular Hgb 27.8 pg (27.0-32.0); Mean Corpuscular Volume 88.6 fL (80-94); Mean Platelet Vol. 10.7 fl (6.2-12.0); Monocyte# 0.45 X10^3/uL; NRBC Flagged by Analyzer 0 % (0-5); Neutrophil # 3.19 X10^3/uL (2.7-7.7); Neutrophil % 70.5 % (47-70); Platelet Count 278 K/mm3 (150-450); RBC Distribution Width CV 15.9 % (11.6-14.6); RBC Distribution Width SD 51.8 fl (35.1-43.9); Red Blood Count 5.36 M/mm3 (4.6-6.2); White Blood Count 4.5 K/mm3 (4.4-11.0)
[2020-09-03 13:19] LABS: ALB/GLOB Ratio 0.8 RATIO (0.9-2.4); AST(SGOT) 44 U/L (15-37); Alanine Aminotransfer ALT/SGPT 40 U/L (16-61); Albumin, Serum 3.3 g/dL (3.2-5.0); Alkaline Phosphatase 77 U/L (45-117); Anion Gap 8 (5-15); BUN 19 mg/dL (7-18); BUN/Creat Ratio 10.3 RATIO (10-20); Calcium,Total 8.5 mg/dL (8.5-10.1); Chloride 104 mmol/L (98-107); Creatinine, Serum 1.85 mg/dL (0.70-1.30); EST Glomerular Filtration Rate 39 mL/min (>60); Est Glom Filt Rate - Afr Amer 47 mL/min (>60); Ferritin 8 ng/mL (26-388); Glucose 194 mg/dL (74-106); Iron 32 ug/dL (65-175); Potassium 4.3 mmol/L (3.5-5.1); Protein, Total 7.3 g/dL (6.4-8.2); Sodium Level 139 mmol/L (136-145)
== END ==
PROVIDERS: PCP Family Medicine; Referring Provider Family Medicine; Visit Provider Family Medicine
DX: M54.2 Cervicalgia (principal); E11.22 Type 2 diabetes mellitus with diabetic chronic kidney disease; I12.9 Hypertensive chronic kidney disease with stage 1 through stage 4 chronic kidney disease, or unspecified chronic kidney disease; N18.9 Chronic kidney disease, unspecified; E11.65 Type 2 diabetes mellitus with hyperglycemia; D50.9 Iron deficiency anemia, unspecified
CPT/HCPCS: 36415; 72052; 80053; 82728; 83540; 85025

== ENCOUNTER → 2020-10-19 12:43 | Outpatient (CLI) | payer OTHER, SELFPAY ==
[2019-12-23 08:02] VITALS: BMI 32.7
[2020-10-19 13:39] LABS: Anion Gap 4 (5-15); BUN 24 mg/dL (7-18); BUN/Creat Ratio 11.1 RATIO (10-20); Calcium,Total 9.5 mg/dL (8.5-10.1); Chloride 102 mmol/L (98-107); Creatinine, Serum 2.16 mg/dL (0.70-1.30); EST Glomerular Filtration Rate 33 mL/min (>60); Est Glom Filt Rate - Afr Amer 40 mL/min (>60); Glucose 132 mg/dL (74-106); Potassium 5.2 mmol/L (3.5-5.1); Sodium Level 137 mmol/L (136-145)
== END ==
PROVIDERS: PCP Family Medicine; Referring Provider Internal Medicine Nephrology; Visit Provider Internal Medicine Nephrology
DX: N18.32 Chronic kidney disease, stage 3b (principal)
CPT/HCPCS: 36415; 80048

== ENCOUNTER → 2020-10-30 11:44 | Outpatient (CLI) | payer OTHER, SELFPAY ==
[2019-12-23 08:02] VITALS: BMI 32.7
[2020-10-30 13:12] LABS: PSA,Total - Annual Screen 1.03 ng/mL (0.00-4.00)
== END ==
PROVIDERS: PCP Family Medicine; Referring Provider Nurse Practitioner Adult Health; Visit Provider Nurse Practitioner Adult Health
DX: E29.1 Testicular hypofunction (principal); Z12.5 Encounter for screening for malignant neoplasm of prostate
CPT/HCPCS: 36415; 84153; 84403; G0103

== ENCOUNTER → 2020-11-24 07:54 | Outpatient (CLI) | payer OTHER, SELFPAY ==
[2019-12-23 08:02] VITALS: BMI 32.7
[2020-11-14 15:08] VITALS: BMI 31.5
--- NOTE | 2020-11-24 08:30 | MRI_ITS ---
STUDY: MRI CERVICAL SPINE WITHOUT CONTRAST REASON FOR EXAM: Male, 65 years old. DISC HERNIATION RIGHT arm, hand and shoulder pain TECHNIQUE: Standardized fat and water weighted pulse sequences were obtained in the sagittal and axial planes. COMPARISON: 01/27/2017 FINDINGS: Normal foramen magnum and brainstem-cervical cord junction. There is straightening of the normal cervical lordosis. C2-3: There is minimal disc space narrowing and endplate spondylosis. Mild disc osteophyte complex asymmetric to the right with mild right foraminal stenosis. Uncovertebral arthropathy with mild right and minimal left foraminal stenosis. Findings are stable since prior examination C3-4: There is mild disc space narrowing and endplates spondylosis. Mild disc osteophyte complex with mild central canal stenosis. Uncovertebral arthropathy with moderate right and mild left foraminal stenosis. Findings are stable since prior examination. C4-5: There is mild disc space narrowing and endplates spondylosis. Minimal disc osteophyte complex without significant central canal stenosis. Uncovertebral arthropathy with mild right and mild left foraminal stenosis. There is stable compression of C5 C5-6: There is mild disc space narrowing and endplates spondylosis. Mild disc osteophyte complex and mild central canal stones. Uncovertebral arthropathy with mild right and mild left foraminal stenosis. Findings are stable since prior examination. C6-7: There is mild disc space narrowing and endplates spondylosis. Mild disc osteophyte complex with mild central canal stenosis. Uncovertebral arthropathy with moderate right and minimal left foraminal stenosis. Findings are stable since prior examination. C7-T1: There is minimal disc space narrowing and endplate spondylosis. There is no significant disc herniation, central canal or foraminal stenosis. Normal cervical cord. MRI/Spine Cervical (Routine) IMPRESSION: Stable multilevel degenerative changes. C3/C4: Moderate right foraminal stenosis. C7/T1: Moderate right foraminal stenosis. Electronically Signed: Fuentes Reyez MD at 8:21 EDT Tel , Service support ,
== END ==
PROVIDERS: PCP Family Medicine; Referring Provider Anesthesiology Pain Medicine; Visit Provider Anesthesiology Pain Medicine
DX: M50.11 Cervical disc disorder with radiculopathy, high cervical region (principal); M47.812 Spondylosis without myelopathy or radiculopathy, cervical region; M48.02 Spinal stenosis, cervical region
CPT/HCPCS: 72141

== ENCOUNTER 2020-12-14 12:45 | Observation (INO) | payer OTHER, SELFPAY ==
--- NOTE | 2020-12-07 13:44 | NURSING ---
pt reports history of unable to urinate postOp; encouraged to address with Dr Brock at PreOp appointment to discuss potential for Tamsulosin.
[2020-12-07 14:30] VITALS: BMI 31.5
[2020-12-07 16:34] LABS: Absolute Lymphocyte Count 0.95 X10^3/uL (0.83-4.51); Basophil# 0.05 X10^3/uL; Basophil% 1.1 % (0-1); Eosinophil# 0.09 X10^3/uL; Eosinophils% 1.9 % (0-5); Hematocrit 47.7 % (40-54); Hemoglobin 15.3 g/dL (13.0-16.5); Lymphocyte # 0.95 X10^3/ul (0.83-4.51); Lymphocyte % 20.5 % (19-41); Mean Corp Hgb Conc 32.1 g/dL (32-36); Mean Corpuscular Hgb 28.9 pg (27.0-32.0); Mean Platelet Vol. 10.9 fl (6.2-12.0); Monocyte% 10.8 % (0-10); NRBC Flagged by Analyzer 0 % (0-5); Neutrophil # 3.03 X10^3/uL (2.7-7.7); Neutrophil % 65.5 % (47-70); Platelet Count 263 K/mm3 (150-450); RBC Distribution Width CV 15.9 % (11.6-14.6); RBC Distribution Width SD 53.3 fl (35.1-43.9); White Blood Count 4.6 K/mm3 (4.4-11.0)
[2020-12-07 17:01] LABS: Magnesium 2.3 mg/dL (1.6-2.6)
[2020-12-07 17:03] LABS: Anion Gap 2 (5-15); BUN 20 mg/dL (7-18); BUN/Creat Ratio 10.1 RATIO (10-20); Calcium,Total 9.2 mg/dL (8.5-10.1); Chloride 106 mmol/L (98-107); Creatinine, Serum 1.99 mg/dL (0.70-1.30); EST Glomerular Filtration Rate 36 mL/min (>60); Est Glom Filt Rate - Afr Amer 43 mL/min (>60); Glucose 110 mg/dL (74-106); Potassium 4.4 mmol/L (3.5-5.1); Sodium Level 138 mmol/L (136-145)
[2020-12-07 17:33] LABS: HIV - WCH Non-Reactive (Nonreactive)
[2020-12-10 09:36] LABS: HEPATITIS B SURFACE AG Negative (Negative); Hepatitis A AB, Total Negative (Negative); Hepatitis A IgM Antibody Negative (Negative); Hepatitis B Core AB IgM Negative (Negative); Hepatitis B Core Ab Total Negative (Negative); Hepatitis C Ab <0.1 s/co ratio (0.0-0.9)
[2020-12-10 17:17] LABS: Hep B Surface Antibodies Non Reactive (.)
--- NOTE | 2020-12-12 11:09 | EKG12_ITS ---
Test Reason : PREOP Blood Pressure : / mmHG Vent. Rate : 066 BPM Atrial Rate : 066 BPM P-R Int : 198 ms QRS Dur : 106 ms QT Int : 374 ms P-R-T Axes : 067 054 083 degrees QTc Int : 392 ms Normal sinus rhythm Normal ECG Confirmed by AYAZ BAUTISTA, AHMET ([id number]), greeting card editor IHSAN FERGUSON ([id number]) on 12/13/2020 9:01:57 AM Referred By: Cliff Brock Confirmed By:AHMET JACOME MD
[2020-12-14] VITALS (14 sets, daily range): BP systolic 144–167; BP diastolic 60–80; PULSE 68–84; RESP 16–18; TEMP 36.2–37.3; O2SAT 93–99; BMI 31.6; BMI 31.8
--- NOTE | 2020-12-14 | MISC_PTH ---
PATIENT: PAOLA LOPEZ LOC: MS3 U#:[id number] AGE/SX: 65/M ROOM: MS314 RE12/14/[address]: Dr. Suyapa Akers MD : 1955 BED: 1 DIS: 12/15/2020 SPEC #: [id number] RECD: 12/14/20 14:07 STATUS: HUNTER REClement #: [id number] MANUEL: 12/14/20 00:[address]: Cliff Brock DEPT: SURGICAL PATHOLOGY RECD BY: Gen Tripp ENTERED: 12/17/20 07:56 SP TYPE: MISC OTHR DR: MD Dr. Kena Colon MD Dr. Autumn L White, MD Dr. Christopher Ranney, MD Dr. Mary Catherine Sementi, MD Mike Richter Dr., MD Dr. Eric Jopperi, MD Dr. Timmy Paul Dr., MD Dr. Ghasem E Ashelfah, MD Dr. Hannah Miedel, MD Dr. Ifijen Oleghe, MD Dr. Joseph Agyepong, MD Dr. James Mooney, MD Dr. John Prokop, MD Dr. John E Schinner, MD Dr. Kathryn Lee, DO Dr. Delicia Rice, DO MD Dr. Cliff Herring, DO Dr. Rigoberto Miller, DO MD Dr. Parker Schreiber MD Dr. Nhan Luu, MD Dr. Prakash Chand, MD Dr. Paul Nielsen, MD Dr. Scott Hannan, MD Barbara Tickton, [employer] Bonita Schroeder, [employer] Kerrie Saunders, [employer] Kari Johnson, [employer] Rigoberto Westbrook, [employer] GOOD Diez PA Rachael McGoron, PA Tissues: TISSUE SURGICALLY REMOVED Procedures: Surgery Specimen Level III Comments: @ Ordering doctor for MAMADOU edited from to DR.MNEWTO Bowman by RGOOD at 12/17/20952 @ Submitting doctor edited from to DR.MNEWTO Bowman by RGOOD at 12/17/20952 HEADER OPERATION: Discectomy anterior cervical fusion C5-C6, C6-C7 PRE-OP DIAGNOSIS: C6-C7 radiculopathy with intractable pain and significant neurological deficits TISSUE SUBMITTED: Cervical disc MICROSCOPIC DIAGNOSIS Cervical disc: Fragments of fibrocartilaginous tissue with focal degenerative changes and bone. SJ:traci 12/18/2020 MICROSCOPIC DESCRIPTION Slides are reviewed. GROSS DESCRIPTION Received in fixative is one container labeled with the patient's name and designated cervical disc. The specimen consists of multiple pieces of wallace indurated tissue that in aggregate measure 5 x 5 x 1 cm. Sporting Goods Salesperson tissue is submitted in two cassettes. / CARRIE:traci 12/17/20 TC:5 CPT: 63782
--- NOTE | 2020-12-14 06:00 | HP_ITS ---
Intake Vital Signs 12/07/20 14:30 BMI 31.5 Intake Visit Reasons: cervical spine Allergies pollen extracts Allergy (Verified 12/07/20 12:48) Itching Yidfpxl-Dfk-Qeu Reductase Inhibitor Adverse Reaction (Verified 12/07/20 12:48) Pain in joints [facility] Medical History (Updated 12/07/20 @ 13:15 by Dorota Arriaza) Alcohol use Cancer Chronic pain Edema Hearing loss, left Hearing loss, right Injury of head and neck Kidney disease Non-smoker Sleep apnea Wears glasses Surgical History (Updated 12/07/20 @ 13:32 by Dorota Arriaza) History of colonoscopy Status post insertion of intrathecal pump Social History (Updated 11/26/20 @ 16:[address] Cliff Brock DO) Smoking Status: Never smoker HPI cervical spine Surgical H&P: Yes Details: Parts of this documentation were recorded by a scribe, this documentation accurately reflects the service provided and the decisions made by me, Dr. Cliff Brock DO 12/07/20 2997. PAOLA LOPEZ is a 65 year old M here today for his pre-op appointment. Patient is here to sign surgical consent and to obtain his soap and ensures. Patient's spouse brought in [facility] paperwork for our office to complete for her employment since she will be caring for the patient for his surgery. Patient will be going to the hospital after his appointment today for his MRSA test and blood work. HISTORY AND PHYSICAL Shubham's chief complaint is that of pain in the neck that radiates down the right arm in a classic C7 and some C6 dermatome. Is been going on for several weeks now. He responded well to steroids. However the effect is try is starting to wear off. On examination of his arm he still has some triceps weakness and wasting on the right side. I can easily overpower his right triceps I cannot overpower his left. An examination of his head demonstrates that he is normocephalic. Pupils are equally reactive to light and accommodation. Extraocular muscles are intact. His trachea is midline he has no bruits over the carotids. He has no lymphadenopathy. Examination of his heart demonstrates he has normal rate and rhythm without murmurs. Auscultation of his lungs demonstrate they are clear in all lung howell with no adventitious sounds. Palpation of his abdomen reveals that he has no tenderness he has no organomegaly. Musculoskeletal exam demonstrates that he has again marked weakness of the triceps on the right with absence of the triceps reflex. The rest of the upper extremities are intact as are the lower extremities with normal reflexes and good strength. He has no long tract signs. Impression is that of severe right C7 radiculopathy and C6 radiculopathy with intractable pain and significant neurological deficits. The proposed procedure is as follows: #1 anterior cervical fusion c6/7 CPT code #70521 #2 application of spine plate C5-C7 CPT code #13171/59 this code is not integral to the code for the cage. Thus modifier #59. #3 anterior cervical fusion C5-6 CPT code #54889/51 #4 insertion of cage C6/7 CPT code #49069 #5 insertion of cage C5/6 CPT code #53458/51 ROS Const Reports weakness Eyes Reports system reviewed and no additional complaints, except as documented ENT Reports system reviewed and no additional complaints, except as documented Card Reports system reviewed and no additional complaints, except as documented Resp Reports system reviewed and no additional complaints, except as documented GI Reports system reviewed and no additional complaints, except as documented Reports system reviewed and no additional complaints, except as documented Musc Reports atrophy, Reports muscle weakness, Reports radiating pain into limb and Reports tingling Skin/Breast Reports system reviewed and no additional complaints, except as documented Neuro Yes as per HPI, Yes tingling and Yes weakness Psych Reports system reviewed and no additional complaints, except as documented Endo Reports system reviewed and no additional complaints, except as documented Joel/Lymph Reports system reviewed and no additional complaints, except as documented Aller/Immun Reports system reviewed and no additional complaints, except as documented and Reports as per HPI Coding Level of Care Code Off vis,est,level 2 Time Spent (min) 40
[2020-12-14] MEDS: Lactated Ringers 1,000 ML 100 ML IV ×3 (06:25→17:01)
[2020-12-14] MEDS: Acetaminophen 500 MG Tablet 1000 MG PO (06:27)
[2020-12-14] MEDS: dexAMETHasone 10 MG/ML Vial 8 MG IV (06:27)
[2020-12-14] MEDS: Tamsulosin HCl 0.4 MG Capsule PO (06:48)
[2020-12-14 06:51] LABS: Bedside Glucose 219 mg/dL (70-110)
[2020-12-14] MEDS: Insulin Lispro 100 UNIT/ML INSULN.PEN SC ×2 (07:04→22:40)
[2020-12-14 07:14] LABS: Potassium 4.1 mmol/L (3.5-5.1)
[2020-12-14] MEDS: Cefazolin 2 GM in 0.9% Normal Saline 100 ML IV (07:38)
--- NOTE | 2020-12-14 08:05 | RAD_ITS ---
STUDY: X-RAY - CERVICAL SPINE REASON FOR EXAM: Male, 65 years old. ANTERIOR CERVICAL FUSION C5-6, 6-7 -- IMAGE #1 TECHNIQUE: Lateral view(s) of the cervical spine were obtained. COMPARISON: MRI 11/24/2020 FINDINGS: Normal anterior atlantoaxial articulation. Normal odontoid process. There is straightening of the normal cervical lordosis. There is multi-level endplate spondylosis. There is multi-level degenerative disc disease with multilevel disc space narrowing. Surgical localizer device extends to superior C6 endplate level anteriorly. Stable compression deformity of C5. Support tubes including endotracheal tube partially visualized. RAD/Spine 1 View Any Level IMPRESSION: Localization at superior C6 level. Electronically Signed: Kevin Loza MD (Brooks) at 8:30 EDT , Service support ,
[2020-12-14] MEDS: THROMBIN (RECOMBINANT) 20,000 UNIT VIAL 20000 UNIT TOPICAL (09:00)
[2020-12-14] MEDS: Heparin 10,000 UNITS/10 ML Vial 10000 UNITS (09:00)
--- NOTE | 2020-12-14 09:10 | RAD_ITS ---
STUDY: X-RAY - CERVICAL SPINE REASON FOR EXAM: Male, 65 years old. DISCECTOMY ANTERIOR CERVICAL FUSION C5-6, C6-7 -- IMAGE #2 TECHNIQUE: Lateral view(s) of the cervical spine were obtained. COMPARISON: Earlier the same day FINDINGS: Normal anterior atlantoaxial articulation. Normal odontoid process. There is straightening of the normal cervical lordosis. There is multi-level endplate spondylosis. Surgical localizer device extends to C6-C7. Stable compression deformity of C5. Support tubes including endotracheal tube partially visualized. RAD/Spine 1 View Any Level IMPRESSION: Localization at C6-C7 level. Electronically Signed: Kevin Loza MD (Brooks) at 8:32 EDT , Service support ,
--- NOTE | 2020-12-14 11:30 | RAD_ITS ---
STUDY: X-RAY - CERVICAL SPINE REASON FOR EXAM: Male, 65 years old. ANTERIOR FUSION C5-6, C6-7 TECHNIQUE: 1 view(s) of the cervical spine were obtained. COMPARISON: None FINDINGS: Single lateral view was obtained. The patient is status post anterior fusion and prosthetic disc placement at the C5-C6 and C6-C7 levels. RAD/Spine 1 View Any Level IMPRESSION: Status post anterior fusion and disc placement at the C5-C6 and C6-C7 levels. Electronically Signed: Trino Herbert MD at 12:48 EDT , Service support ,
--- NOTE | 2020-12-14 12:44 | PCM.OPRPT ---
Problems Associated Problem List Diagnoses (1) HNP (herniated nucleus pulposus), cervical: Report of Operation Date of Procedure: 12/14/20 Description of Surgical Findings:: Preoperative diagnosis: #1 herniated disc C5-6 on the right #2 herniated disc C6-7 on the right Postoperative diagnoses: The same The procedure was #1 anterior cervical fusion C6-7 CPT Code #03517 #2 application of spine plate C5-C7 CPT Code #87122/59(the spine plate is not integral to the insertion of Of intervertebral cages, hence modifier 59) #3 anterior cervical fusion C5-6 CPT Code #58166/51 #4 insertion of cage C6-7 CPT Code #73242 #5 insertion of cage C5-6 CPT Code #50853/51 Surgeon: Dr. Brock grooming assistant:Stanton FUNK Second child welfare assistant: Zayda FUNK Anesthesia: General endotracheal anesthesia administered by [facility] The estimated blood loss: 30 cc Drains: 1/4 inch Milam Complications: None Procedure: Patient was taken to the OR where he was placed in the supine position on the operating table he was then placed under general endotracheal anesthesia. Neuro monitoring microbiology quality control technician then placed all his needle leads and the patient. A Giordano catheter was inserted. Curlex was tied on the volar side of the wrist from one side to another. This would be used to pull down the shoulders. We then took a preoperative x-ray with a needle marker on the side of the neck to assure that I will would know where to start the incision. Once this was done I then marked the skin in the midline with a small laceration using the end of a second needle. The neck was then prepped and draped in standard fashion. Been started by incision at the predetermined point in line with longer's lines to the edge of the right sternocleidomastoid muscle. Subcutaneous tissues were incised the length of the skin incision down to the platysma. I then elevated the subcutaneous tissues in both cephalad and caudad direction using tissue scissors. Self-retaining retractor was then put in place exposing the platysma. I cauterized the platysma in a longitudinal fashion and then using tissue scissors I split them in either direction. This gave me access to the precervical fascia. This precervical fascia was then exploited in both up-and-down direction in this fashion I was able to identify the carotid pulse and kept it protected at the time with my finger. I then exploited the next fascial layer that is the pretracheal fascia and I was then able to start pulling the trachea and the esophagus to the left and the carotid sheath to the right. This exposed the precervical fascia I then opened it in the midline using cautery. Identify the disc space thought to be C6-7 using a needle marker we then took a intraoperative x-ray that confirmed that we were indeed at the C6-7 level. As I remove the needle I marked it back cauterizing a hole in the anterior annulus. I then cauterized the edge of the longus coli muscles on both the left and right sides elevated them gently off the disc space on either side and was able to put my black leather buffer retractors of the appropriate length under the muscles on both sides. Then put black leather buffer retractors with smooth blades in an up-and-down fashion give me good access to C6-7. Note that there was some significant anterior spurring using double-action rongeurs and a bere bur I was able to bur those down flat. I then cut the anterior annulus with a 15 blade and removed it and began more removal of the nucleus from within the disc space with the pituitary rongeurs. I then placed the intervertebral distractor on the left side give any more space and continue to remove the nucleus and using both the pituitary rongeurs and curettes all the way back to the posterior uncinate process. I then used the bere bur to bur the uncinate process down and open it up. I then used small curettes to release the posterior longitudinal ligament on the right side and then used a nerve hook to probe the foramen. Several free fragments of disc were removed. This was the reason for his marked triceps weakness. Once the free fragments were removed I then prepared the endplates for a cage. Using again sharp small curettes both of 2- 0 and 3- 0 I was able to remove the cartilage off both endplates. I then used a bere bur to better fashion the space for accepting the cage. We were down to bleeding endplate on both sides thorough irrigation was then carried out. I measured for a cage we decided to use a 10 mm high cage. This was the larger of the 2 sizes which would make it a 14-1/2 x 16 cage 10 mm high. I then filled the cage with the spongy demineralized bone matrix that was soaked in the patient's own stem cells. Earlier we obtained the bone marrow aspirate from the left iliac crest. This was then spun down by the microbiology quality control technician in the room concentrated 10 times and returned to the OR table. I then countersunk the cage approximately 2 mm. We then removed the retractors and moved up to the C5-6 level. Again I cauterized the coli muscles on either side and elevated them gently off the disc space I also had to bur down the large osteophyte from the old C5 fracture that he had many many years ago. This was to make room for the plate. Once this was done the black leather buffer retractors were again put in place to open side to side and to open down. This gave us good access to the space I was then able to remove the anterior annulus by cutting it with a 15 blade and removed more nucleus from within the disc base using pituitary rongeurs. Again the distractor was placed on the left side distracting the right. I removed all the cartilage all the way back to the posterior longitudinal ligament. Using a bere bur again I removed the posterior corner of the uncinate process. Done by burring followed by the instillation of cold saline to prevent damage to the base of the C6 nerve. Once this was done I used a nerve probe to make sure that the foramen was open which it was at that point. Again I removed all the cartilage off both endplates down to bleeding bone and again we used the bur to flatten the back of the space and make room on each side for the larger of the 2 cages. At this level we measured for an 8 mm cage. Again it was the larger of the 2 cages and I feel the center of it with the spongy demineralized bone matrix. Again it was soaked in the patient's own stem cells that were concentrated. With anesthesia pulling on the head of then tamped into place and countersunk at 2 mm. We then ended up using a 42 mm plate once centered I put the locking pin into the center of C6. And punched out with an all the opposite side and then entered with a 16mm screw. I then removed the pin and placed a 16mm screw on that second center hole. We then moved up to the top of the plate and punched holes into C5 on each side and again 16mm screws were inserted. And lastly this was done also at the top of C7 with the 16mm screws. This gave us an excellent construct as was seen on an x-ray taken in the OR. Demonstrated excellent position of the plate the screws and cages. After thorough irrigation we then placed amniotic membranes over the plate to prevent its adhesions to the esophagus or trachea. 1/4 inch Milam drain was inserted and closure was begun. We closed the platysma running fashion with 5-0 Vicryl. Then the subcutaneous were closed using interrupted sutures with 5-0 Vicryl. This approximated the edges and there was no need for outside stitches. As were then applied. We did place a safety pin through the drain to prevent a suction into the wound. Once the dressing was applied the patient was recovered in the OR moved to his hospital bed and taken to recovery in satisfactory condition. This the end of operative summary on [place]. This Dr. Brock dictating.
[2020-12-14 13:06] LABS: Bedside Glucose 179 mg/dL (70-110)
--- NOTE | 2020-12-14 13:26 | DCINST_ITS ---
Discharge Instructions Follow Up Care Test Results: Test results from this visit will be discussed in further detail at your follow-up appointment, if applicable. Discharge Plan Admission Attending Provider: Cliff Brock Primary Care Provider: Gino Lackey Discharge Orders/Prescriptions Prescriptions: No Action lisinopril 30 mg tablet 30 mg PO QHS RF: 0 testosterone cypionate 200 mg/mL kit 100 mg IM Q4W RF: 0 hydrocodone-acetaminophen [[place]] 10-325 mg tablet 1 tablet PO Q6H PRN (Reason: pain) Qty: 60 RF: 0 metformin 1,000 MG tablet 1,000 mg PO QHS RF: 0 omega-3 fatty acids-fish oil 1 EACH capsule,delayed release(DR/EC) 1 ea PO QHS RF: 0 tizanidine 6 MG capsule 6 mg PO 4X/DAY RF: 0 pregabalin 75 MG capsule 100 mg PO TID RF: 0 Pain Pump (Pt's Own) 1 UNIT Pump 1.1993 mg subcut CONT RF: 0 amlodipine 5 MG tablet 7.5 mg PO DAILY RF: 0 Cbd Oil 1 dose PO/SL QHS RF: 0 Levemir Flexpen 100 unit/mL (3 mL) Insulin Pen 55 unit SUBCUT QHS RF: 0 Referrals / Follow Up: Gino Lackey MD [Primary Care Provider] - Disposition Disposition (needs filled in before D/C Order can be placed): Home, self care
[2020-12-14] MEDS: tiZANidine HCl 2 MG Tablet 6 MG PO ×3 (13:55→17:55)
[2020-12-14] MEDS: Cefazolin 1 GM/50 ML BAG IV ×2 (15:52→22:34)
[2020-12-14] MEDS: dexAMETHasone 4 MG/ML Vial IV ×2 (15:52→20:12)
[2020-12-14] MEDS: 0.9% Saline Lock 10 ML Syringe IV (15:52)
--- NOTE | 2020-12-14 16:07 | PN.HOSP_ITS ---
Documented by User: Kari Johnson NP, INSULATION BLANKET MAKER-C 12/14/20 16:19 Subjective Subjective: Patient seen and examined. Underwent anterior cervical fusion. Reports pain 6 out of 10. Denies other symptoms or complaints. Objective Data Objective Data Vital Signs: Vital Signs Temp Pulse Resp BP Pulse Ox 97.2 F L 78 16 152/78 H 99 12/14/20 15:06 12/14/20 15:06 12/14/20 15:06 12/14/20 15:06 12/14/20 15:06 Oxygen Flow Rate (L/min) 7 Oxygen Delivery Method Venturi Mask Weight: 221 lb 9.033 oz Body Mass Index (BMI) 31.8 Finger Stick Blood Glucose 179 Intake & Output: Intake and Output for Last 24 Hours 12/12/20 12/13/20 12/14/20 23:59 23:59 23:59 Intake Total 2216 / 2216 Output Total 650 / 650 Balance 1566 / 1566 Lab / Micro Data Result Diagrams: 12/07/20 15:48 12/14/20 07:00 Labs: Laboratory Results - last 24 hr 12/14/20 12/14/20 12/14/20 06:44 07:00 13:00 Potassium 4.1 POC Glucose 219 H 179 H Micro: Microbiology 12/12/20 11:15 Interface Orders SARS-CoV-2 Antigen (Rapid) - Final 12/07/20 15:48 Swab (Method) Nasal Screen MRSA/MSSA - Final Radiography Diagnostic Testing: Radiology Impression Spine X-Ray 12/14/20 11:30 IMPRESSION: Status post anterior fusion and disc placement at the C5-C6 and C6-C7 levels. Electronically Signed: Trino Herbert MD at 12:48 EDT , Service support , Physical Exam Const alert, oriented x3 and no apparent distress Orientation / Consciousness: awake, oriented to person, oriented to place and oriented to time HEENT normocephalic and moist oral mucous membranes Eyes PERRL, EOMs intact bilaterally and conjunctivae normal Neck no lymphadenopathy Resp normal respiratory effort and clear to auscultation bilaterally Cardio regular rate, regular rhythm and no murmurs Peripheral Pulses: pulses 2+ throughout GI normal to inspection, nondistended, normoactive bowel sounds, non-tender and non-distended Extremity normal to inspection Skin no rashes or lesions noted Lesions: no lesions Rashes: no rashes Trauma: no lacerations or abrasions Neuro oriented x3 Sensorium / Orientation: awake and alert Psych affect normal Assessment & Plan Assessment/Plan (1) Hypertension: QUALIFIERS: Hypertension type: essential hypertension Qualified Code(s): I10 - Essential (primary) hypertension (2) Diabetes: QUALIFIERS: Diabetes mellitus complication status: with unspecified complications Diabetes mellitus middle or intermediate school principal insulin use: with detention use Diabetes mellitus type: type 2 Qualified Code(s): E11.8 - Type 2 diabetes mellitus with unspecified complications; Z79.4 - manager terminal (current) use of insulin PLAN: 1. Cervical herniated nucleus pulposus-status post cervical fusion C5-C6 and C6-C7 by Dr. Brock. Management per surgery. 2. Chronic back pain-pain pump in place. On tizanidine, Lyrica. Patient has reportedly been taking tizanidine 2 mg every 2 hours when it is prescribed 6 mg 4 times a day as needed. Will resume at prescribed dose and monitor. 3. Hypertension-continue amlodipine, lisinopril. 4. Type 2 diabetes [id number] with sliding scale insulin. Continue home Levemir regimen. DVT prophylaxis-SCDs, pharmacologic prophylaxis per surgery recommendations This patient was seen by KELSI Ramirez under the supervision of Dr. Dorsey. Documented by User: Dr. Parker Dorsey MD 12/14/20 18:32 Objective Data Lab / Micro Data Result Diagrams: 12/07/20 15:48 12/14/20 07:00 Addendum Addendum: Dr. Dorsey: I personally reviewed the chart and examined the patient, and agree with the above findings. Six 5-year-old male presents to the hospital with herniated disc in the cervical spine. He underwent an anterior cervical fusion of C5-7. He is doing well and denies any numbness or tingling in his upper extremities and he has full mobility of all 4 of his extremities. Lab work from a week ago and vital signs today are unremarkable. Can resume his home medications as indicated. PT and OT per primary as well as pain management per primary. Visit Charges Inpatient E&M: 23319 Subs Hosp L3
[2020-12-14] MEDS: Morphine 2 MG/ML Syringe IV (17:01)
[2020-12-14] MEDS: Ensure Surgery 237 ML LIQUID PO (17:06)
[2020-12-14 17:21] LABS: Bedside Glucose 232 mg/dL (70-110)
--- NOTE | 2020-12-14 17:36 | PCM.HP.STD ---
HPI - General General Date of Admission: 12/14/20 HPI Narrative PAOLA LOPEZ, is a 65 M who presents [facility] Medical History (Updated 12/14/20 @ 12:[address] Cliff Brock DO) Alcohol use Cancer Chronic pain Edema Hearing loss, left Hearing loss, right HNP (herniated nucleus pulposus), cervical Injury of head and neck Kidney disease Non-smoker Presence of intrathecal pump Sleep apnea Wears glasses Home Medications metformin 1,000 mg PO QHS 06/12/15 [History Last Taken 12/14/20] omega-3 fatty acids-fish oil 1 ea PO QHS 06/12/15 [History Last Taken 12/14/20] pregabalin 100 mg PO TID 04/11/17 [History Last Taken 12/14/20] tizanidine 6 mg PO 4X/DAY 04/11/17 [History Last Taken 12/14/20] Pain Pump (Pt's Own) 1.1993 mg SUBCUT CONT 03/03/18 [History Last Taken 12/14/20] amlodipine 7.5 mg PO DAILY 03/03/18 [History Last Taken 12/14/20] lisinopril 30 mg tablet 30 mg PO DAILY 12/23/19 [History Last Taken 12/14/20] hydrocodone 10 mg-acetaminophen 325 mg tablet 1 tablet PO Q6H PRN #60 tablet 11/14/20 [Rx Last Taken 12/12/20] testosterone cypionate 200 mg/mL intramuscular kit 100 mg IM Q4W 11/14/20 [History Last Taken Unknown] Cbd Oil 1 dose PO/SL QHS 12/07/20 [History Last Taken 12/14/20] insulin detemir U-100 [Levemir Flexpen] 55 unit SUBCUT QHS 12/07/20 [History Last Taken 12/13/20] Allergy/AdvReac Type Severity Reaction Status Date / Time pollen extracts Allergy Itching Verified 12/07/20 12:48 Rizsbqw-Ays-Okw Reductase AdvReac Pain in Verified 12/07/20 12:48 Inhibitor joints Surgical History (Updated 12/07/20 @ 13:32 by Dorota Arriaza) History of colonoscopy Status post insertion of intrathecal pump Social History (Updated 11/26/20 @ 16:[address] Cliff Brock DO) Smoking Status: Never smoker Vital Signs Vital Signs Vital Signs: 12/14/20 07:05 12/14/20 12:40 12/14/20 13:00 Temperature 98.8 F 97.2 F L Temperature Source Temporal Temporal Pulse Rate 83 78 83 Pulse Strength Respiratory Rate 18 16 16 Respiratory Effort Respiratory Depth Respiratory Pattern Normal Blood Pressure 167/78 H 151/74 H 144/72 H Blood Pressure Mean 107 99 96 Blood Pressure Source Monitor Monitor Monitor Blood Pressure Position Semi-Fowlers Semi-Fowlers Semi-Fowlers Blood Pressure Location Left Arm Right Arm Right Arm Baseline BP 167/78 167/78 Pulse Ox 95 98 97 Oxygen Delivery Method Room Air Simple Mask Simple Mask Oxygen Flow Rate (L/min) 6 6 12/14/20 13:01 12/14/20 13:15 12/14/20 13:30 Temperature Temperature Source Pulse Rate 84 84 Pulse Strength Respiratory Rate 16 16 Respiratory Effort Respiratory Depth Respiratory Pattern Normal Blood Pressure 159/80 H 158/74 H Blood Pressure Mean 106 102 Blood Pressure Source Monitor Monitor Blood Pressure Position Semi-Fowlers Semi-Fowlers Blood Pressure Location Right Arm Right Arm Baseline BP 167/78 167/78 Pulse Ox 98 95 Oxygen Delivery Method Simple Mask Simple Mask Oxygen Flow Rate (L/min) 6 6 12/14/20 13:45 12/14/20 14:00 12/14/20 14:01 Temperature Temperature Source Pulse Rate 83 81 Pulse Strength Normal (2+) Respiratory Rate 16 16 Respiratory Effort Respiratory Depth Respiratory Pattern Blood Pressure 163/75 H 162/80 H Blood Pressure Mean 104 107 Blood Pressure Source Monitor Monitor Blood Pressure Position Semi-Fowlers Semi-Fowlers Blood Pressure Location Right Arm Right Arm Baseline BP 167/78 167/78 167/78 Pulse Ox 96 96 Oxygen Delivery Method Simple Mask Simple Mask Oxygen Flow Rate (L/min) 6 6 12/14/20 14:15 12/14/20 14:30 12/14/20 15:00 Temperature 98.9 F Temperature Source Temporal Pulse Rate 82 81 Pulse Strength Respiratory Rate 16 16 Respiratory Effort Normal Non-Labored Respiratory Depth Normal Respiratory Pattern Normal Blood Pressure 164/74 H 159/73 H Blood Pressure Mean 104 101 Blood Pressure Source Monitor Monitor Blood Pressure Position Semi-Fowlers Semi-Fowlers Blood Pressure Location Right Arm Right Arm Baseline BP 167/78 167/78 Pulse Ox 99 99 Oxygen Delivery Method Simple Mask Simple Mask Venturi Mask Oxygen Flow Rate (L/min) 6 6 12/14/20 15:06 12/14/20 16:53 Temperature 97.2 F L 97.7 F L Temperature Source Oral Oral Pulse Rate 78 68 Pulse Strength Respiratory Rate 16 16 Respiratory Effort Respiratory Depth Respiratory Pattern Blood Pressure 152/78 H 150/70 H Blood Pressure Mean 102 96 Blood Pressure Source Monitor Monitor Blood Pressure Position Semi-Fowlers Semi-Fowlers Blood Pressure Location Left Arm Left Arm Baseline BP Pulse Ox 99 94 Oxygen Delivery Method Venturi Mask Room Air Oxygen Flow Rate (L/min) 7 Lab / Micro Data Result Diagrams: 12/07/20 15:48 12/14/20 07:00 Labs: Laboratory Results - last 24 hr 12/14/20 12/14/20 12/14/20 06:44 07:00 13:00 Potassium 4.1 POC Glucose 219 H 179 H 12/14/20 16:51 Potassium POC Glucose 232 H Radiology Impression Spine X-Ray 12/14/20 11:30 IMPRESSION: Status post anterior fusion and disc placement at the C5-C6 and C6-C7 levels. Electronically Signed: Trino Herbert MD at 12:48 EDT , Service support ,
[2020-12-14] MEDS: Morphine 4 MG/ML Syringe IV (20:08)
[2020-12-14] MEDS: Famotidine 20 MG Tablet PO (22:34)
[2020-12-14] MEDS: Pregabalin 50 MG Capsule 100 MG PO (22:34)
[2020-12-14] MEDS: Senna/Docusate Sodium 1 Tablet 2 TABLET PO (22:34)
[2020-12-15 00:06] LABS: Bedside Glucose 299 mg/dL (70-110)
[2020-12-15] MEDS: dexAMETHasone 4 MG/ML Vial 2 MG IV ×2 (02:25→08:54)
[2020-12-15 02:27] VITALS: BP 158/60; PULSE 55; RESP 16; TEMP 36.5; O2SAT 96
[2020-12-15 06:30] VITALS: BP 157/60; PULSE 64; RESP 16; TEMP 36.6; O2SAT 97
[2020-12-15] MEDS: Pregabalin 50 MG Capsule 100 MG PO ×2 (06:38→13:17)
[2020-12-15] MEDS: Insulin Lispro 100 UNIT/ML INSULN.PEN SC ×2 (06:43→13:27)
[2020-12-15] MEDS: oxyCODONE 5 MG Tablet PO ×2 (06:48→13:18)
[2020-12-15 06:50] LABS: Bedside Glucose 241 mg/dL (70-110)
[2020-12-15] MEDS: Senna/Docusate Sodium 1 Tablet 2 TABLET PO (08:53)
[2020-12-15] MEDS: Lisinopril 10 MG Tablet 30 MG PO (08:53)
[2020-12-15] MEDS: 0.9% Saline Lock 10 ML Syringe IV (08:55)
[2020-12-15 09:00] VITALS: BP 147/78; PULSE 61; RESP 16; TEMP 36.7; O2SAT 95
[2020-12-15] MEDS: Famotidine 20 MG Tablet PO (09:00)
[2020-12-15] MEDS: tiZANidine HCl 2 MG Tablet 6 MG PO ×2 (09:08→13:17)
[2020-12-15] MEDS: Ensure Surgery 237 ML LIQUID PO ×2 (09:19→13:17)
--- NOTE | 2020-12-15 09:40 | PCM.PN.HOSP ---
Documented by User: Kari Johnson NP, ADJUNCT TRAINER-C 12/15/20 09:48 Subjective Subjective: Patient seen and examined. Pain controlled at this time. Denies symptoms or complaints. Patient reports possible DC per surgery today. Objective Data Objective Data Vital Signs: Vital Signs Temp Pulse Resp BP Pulse Ox 97.8 F 64 16 157/60 H 97 12/15/20 06:30 12/15/20 06:30 12/15/20 06:30 12/15/20 06:30 12/15/20 06:30 Oxygen Flow Rate (L/min) 2 Oxygen Delivery Method Room Air Weight: 221 lb 9.033 oz Body Mass Index (BMI) 31.8 Finger Stick Blood Glucose 179 Intake & Output: Intake and Output for Last 24 Hours 12/13/20 12/14/20 12/15/20 23:59 23:59 23:59 Intake Total 3471 / 3471 130 / 130 Output Total 1300 / 1300 1350 / 1350 Balance 2171 / 2171 -1220 / -1220 Lab / Micro Data Result Diagrams: 12/07/20 15:48 12/14/20 07:00 Labs: Laboratory Results - last 24 hr 12/14/20 12/14/20 12/14/20 13:00 16:51 22:39 POC Glucose 179 H 232 H 299 H 12/15/20 06:42 POC Glucose 241 H Micro: Microbiology 12/12/20 11:15 Interface Orders SARS-CoV-2 Antigen (Rapid) - Final 12/07/20 15:48 Swab (Method) Nasal Screen MRSA/MSSA - Final Radiography Diagnostic Testing: Radiology Impression Spine X-Ray 12/14/20 08:05 IMPRESSION: Localization at superior C6 level. Electronically Signed: Kevin Lzoa MD (Brooks) at 8:30 EDT , Service support , Spine X-Ray 12/14/20 09:10 IMPRESSION: Localization at C6-C7 level. Electronically Signed: Kevin Loza MD ([facility]) at 8:32 EDT , Service support , Spine X-Ray 12/14/20 11:30 IMPRESSION: Status post anterior fusion and disc placement at the C5-C6 and C6-C7 levels. Electronically Signed: Trino Herbert MD at 12:48 EDT , Service support , Physical Exam Const alert, oriented x3 and no apparent distress Orientation / Consciousness: awake, oriented to person, oriented to place and oriented to time HEENT normocephalic and moist oral mucous membranes Eyes PERRL, EOMs intact bilaterally and conjunctivae normal Neck no lymphadenopathy Neck Narrative: Cervical collar in place Resp normal respiratory effort and clear to auscultation bilaterally Cardio regular rate, regular rhythm and no murmurs Peripheral Pulses: pulses 2+ throughout GI normal to inspection, nondistended, normoactive bowel sounds, non-tender and non-distended Extremity normal to inspection Skin no rashes or lesions noted Lesions: no lesions Rashes: no rashes Trauma: no lacerations or abrasions Neuro oriented x3 Sensorium / Orientation: awake and alert Psych affect normal Assessment & Plan Assessment/Plan (1) HNP (herniated nucleus pulposus), cervical: PLAN: 1. Cervical herniated nucleus pulposus-status post cervical fusion C5-C6 and C6-C7 by Dr. Brock. Management per surgery. 2. Chronic back pain-pain pump in place. On tizanidine, Lyrica. Patient has reportedly been taking tizanidine 2 mg every 2 hours when it is prescribed 6 mg 4 times a day as needed. Will resume at prescribed dose and monitor. 3. Hypertension-continue amlodipine, lisinopril. 4. Type 2 diabetes [id number] with sliding scale insulin. Continue home Levemir regimen. DVT prophylaxis-SCDs, pharmacologic prophylaxis per surgery recommendations This patient was seen by KELSI Ramirez under the supervision of Dr. Akers. Documented by User: Dr. Suyapa Akers MD 12/15/20 16:52 Objective Data Lab / Micro Data Result Diagrams: 12/07/20 15:48 12/14/20 07:00 Visit Charges Inpatient E&M: 33162 Subs Hosp L2 Addendum Patient seen by Kari DOLAN under my supervision Patient seen and examined. He has no complaints today. Pain is well contrlled. He is POD 1 for C5-6 and C6-7 cervical fusion. REveiw of systems otherwise negative. He has remained hemodynamically stable. O/E: Const alert, oriented x3 and no apparent distress Orientation / Consciousness: awake, oriented to person, oriented to place and oriented to time HEENT normocephalic and moist oral mucous membranes Eyes PERRL, EOMs intact bilaterally and conjunctivae normal Neck no lymphadenopathy Neck Narrative: Cervical collar in place Resp normal respiratory effort and clear to auscultation bilaterally Cardio regular rate, regular rhythm and no murmurs Peripheral Pulses: pulses 2+ throughout GI normal to inspection, nondistended, normoactive bowel sounds, non-tender and non-distended Extremity normal to inspection Skin no rashes or lesions noted Lesions: no lesions Rashes: no rashes Trauma: no lacerations or abrasions Neuro oriented x3 Sensorium / Orientation: awake and alert Psych affect normal Plan is to continue tizanidine and lyrica for chronic back pain. Continue amlodipine and lisinopril for hypertension as well as Levemir for type 2 diabetes mellitus. DVT prophylaxis SCDs, no anticoagulation account of recent neck surgery. For discharge home today as per primary service. Rest as per KELSI Ramirez's note which I have reviewed and endorsed. Inpatient E&M: 01248 Subs Hosp L2
--- NOTE | 2020-12-15 10:15 | CASEMGMT ---
TYLER ALANIS Assessment: Face to Face with pt for initial transition planning/care coordination assessment. RN ANNABELLE introduced self and role at [facility], pt voices understanding and consents to assessment. Pt is A/O x4 and answers all questions appropriately at this time. Pt lying in bed with at bedside in no distress. Care providers, pharmacy, and demographics verified/updated. Admitting Dx: anterior cervical fusion C5-6, C6-7 PCP: Ziyad Specialists: Vinod, spine; Grazyna, nephro; Kali, pain mgmt; Suly, uro Preferred Pharmacy: [facility] Retail this stay, normally uses [facility] [place] [employer] Insurance: [employer] Prescription Benefit: yes LW/HPOA: Pt denies having a LW/DPOA. LNOK: [place] Living Arrangements: Pt lives with in a condo with no steps to enter. Pt reports he is I in ADL's and denies concerns at home. Transportation: Pt drives self and denies concerns with transportation. DME/HHC/SNF: Pt has a cane at home. Denies having a walker and denies need for. Pt states [employer] comes to his home every 3 mos to fill pain pump. Denies any previous SNF stays. Pt states no concerns with going home at time of dc. Pt states no further concerns/needs. Advised pt to ask CM if any further question/concerns/needs arise, voices understanding. Pt Goal: Home Plan: Home with family support.
[2020-12-15 12:36] LABS: Bedside Glucose 300 mg/dL (70-110)
--- NOTE | 2020-12-15 14:17 | PCM.DC ---
Discharge Instructions Diet Discharge Diet: No restrictions Activity Discharge Activity: May Drive and May Shower May shower in (days): 5 Weight Bearing Status: Full weight bearing Lifting Restrictions: 15 Dressing / Incision Call your doctor if your incision/area has: Increased Pain/ Swelling Call your doctor if you observe: Fever of 101 or Higher, Shortness of breath, Chest pain, Calf discomfort and Uncontrolled pain Remove Dressing in: 4 days Cleanse incision/area with: Soap & Water Follow Up Care Please Follow Up With: Cliff Brock DO When: 12 days Test Results: Test results from this visit will be discussed in further detail at your follow-up appointment, if applicable. Discharge Plan Admission Admit Date/Time: 12/14/20 12:45 Attending Provider: Suyapa Akers Primary Care Provider: Gino Lackey Consulting Providers: Flavia Amaya ; Kena Orellana ; Lisa Suárez ; Jayson Boo ; Fanny Pace ; Senthil Rivera ; Mike Barbour ; Timmy Cobos ; Chayito Hewitt ; Timmy Zuniga ; Mohsen Knott ; Suri Plata ; Frannie Hewitt ; Dedrick Antony ; Diogenes Acosta ; Feliberto Conner ; Feliberto Lopez ; Marie Porter ; Delicia Rice ; Mary Jane Anderson ; Rigoberto Miller ; Suyapa Akers ; Parker Dorsey ; Zach Villela ; Robert Bravo ; Juvenal Echeverria ; Jennifer Ibrahim [employer] ; Bonita Schroeder NP ; Kerrie Saunders ; Kari Johnson NP ; Rigoberto Westbrook NP ; Jeremy Linder ; Ana Maria Rivero ; Tania Brown Discharge Orders/Prescriptions Prescriptions: No Action lisinopril 30 mg tablet 30 mg PO DAILY RF: 0 testosterone cypionate 200 mg/mL kit 100 mg IM Q4W RF: 0 hydrocodone-acetaminophen [[place]] 10-325 mg tablet 1 tablet PO Q6H PRN (Reason: pain) Qty: 60 RF: 0 metformin 1,000 MG tablet 1,000 mg PO QHS RF: 0 omega-3 fatty acids-fish oil 1 EACH capsule,delayed release(DR/EC) 1 ea PO QHS RF: 0 tizanidine 6 MG capsule 6 mg PO 4X/DAY RF: 0 pregabalin 75 MG capsule 100 mg PO TID RF: 0 Pain Pump (Pt's Own) 1 UNIT Pump 1.1993 mg subcut CONT RF: 0 amlodipine 5 MG tablet 7.5 mg PO DAILY RF: 0 Cbd Oil 1 dose PO/SL QHS RF: 0 Levemir Flexpen 100 unit/mL (3 mL) Insulin Pen 55 unit SUBCUT QHS RF: 0 Referrals / Follow Up: Gino Lackey MD [Primary Care Provider] -
--- NOTE | 2020-12-15 14:25 | PCM.DC.SUM ---
Providers Date of Admission: 12/14/20 Primary Care Physician: Dr. Gino Lackey MD Consultations 12/14/20 12:45 Consult: Hospitalist Routine Consulting Provider: Mike Carrizales Reason for Consult: medical management EMERGENT Consult: No MD Notified: Yes Date Notified:: 12/14/20 Time Notified: 15:12 Method of Notification: Text Reason For Visit: ANTERIOR CERVICAL FUSION C5-C6, C6-C7 Diagnosis Discharge Diagnosis (1) HNP (herniated nucleus pulposus), cervical: Status: Acute Code(s): M50.20 - Other cervical disc displacement, unspecified cervical region Plan: admitted yesterday theMalysha Fields was 14 December has been discharged today 15 December. Admitting diagnosis was herniated disc C5-6 and C6-7 with severe right C7 and C6 radiculopathy. The discharge diagnoses are the same. Procedures while in the hospital: The patient underwent anterior cervical fusion at C5-6 and C6-7. He tolerated the procedure well. Discharge the dressing was changed and the drain was removed. The incision is healing well. His voice is clear he has no May syndrome. He reports that his right arm pain has resolved. He was given post op A/C DIF protocol regarding his activities at home. He knows when to shower he knows when to return to my office. He is given hydrocodone 05/12/2025 for pain. He was told that he could remove the dressing in 4 days and he can shower in 5 days. He is not to drive a car for 2 weeks. My office in 12 days. There is the end of discharge summary on [place]. Medications at Discharge Home Medications metformin 1,000 mg PO QHS 06/12/15 omega-3 fatty acids-fish oil 1 ea PO QHS 06/12/15 pregabalin 100 mg PO TID 04/11/17 tizanidine 6 mg PO 4X/DAY 04/11/17 Pain Pump (Pt's Own) 1.1993 mg SUBCUT CONT 03/03/18 amlodipine 7.5 mg PO DAILY 03/03/18 lisinopril 30 mg tablet 30 mg PO DAILY 12/23/19 hydrocodone 10 mg-acetaminophen 325 mg tablet 1 tablet PO Q6H PRN #60 tablet 11/14/20 testosterone cypionate 200 mg/mL intramuscular kit 100 mg IM Q4W 11/14/20 Cbd Oil 1 dose PO/SL QHS 12/07/20 insulin detemir U-100 [Levemir Flexpen] 55 unit SUBCUT QHS 12/07/20 ABG / Lab / Microbiology Data Result Diagrams: 12/07/20 15:48 12/14/20 07:00 Laboratory: Laboratory Results - last 24 hr 12/14/20 12/14/20 12/15/20 16:51 22:39 06:42 POC Glucose 232 H 299 H 241 H 12/15/20 11:54 POC Glucose 300 H Microbiology: Microbiology 12/12/20 11:15 Interface Orders SARS-CoV-2 Antigen (Rapid) - Final 12/07/20 15:48 Swab (Method) Nasal Screen MRSA/MSSA - Final Radiography Diagnostic Testing: Radiology Impression Spine X-Ray 12/14/20 08:05 IMPRESSION: Localization at superior C6 level. Electronically Signed: Kevin Loza MD (Brooks) at 8:30 EDT , Service support , Spine X-Ray 12/14/20 09:10 IMPRESSION: Localization at C6-C7 level. Electronically Signed: Kevin Loza MD (Brooks) at 8:32 EDT , Service support , D/C Instructions Discharge Diet: No restrictions Discharge Activity: May Drive and May Shower May shower in (days): 5 Weight Bearing Status: Full weight bearing Call your doctor if your incision/area has: Increased Pain/ Swelling Call your doctor if you observe: Fever of 101 or Higher, Shortness of breath, Chest pain, Calf discomfort and Uncontrolled pain Cleanse incision/area with: Soap & Water Please Follow Up With: Cliff Brock DO When: 12 days Meaningful Use Info Meaningful Use Diagnoses (Choose all that apply): None applicable Discharge Plan Admission Admit Date/Time: 12/14/20 12:45 Attending Provider: Suyapa Akers Primary Care Provider: Gino Lackey Consulting Providers: Flavia Amaya ; Kena Orellana ; Lisa Suárez ; Jayson Boo ; Fanny Pace ; Senthil Rivera ; Mike Barbour ; Timmy Cobos ; Chayito Hewitt ; Timmy Zuniga ; Mohsen Knott ; Suri Plata ; Frannie Hewitt ; Dedrick Antony ; Diogenes Acosta ; Feliberto Conner ; Feliberto Lopez ; Marie Porter ; Delicia Rice ; Mary Jane Anderson ; Rigoberto Miller ; Suyapa Akers ; Parker Dorsey ; Zach Villela ; Robert Bravo ; Juvenal Echeverria ; Jennifer Ibrahim COMBINING MACHINE OPERATOR ; Bonita Schroeder COMBINING MACHINE OPERATOR ; Kerrie Saunders ; Kari Johnson COMBINING MACHINE OPERATOR ; Rigoberto Westbrook COMBINING MACHINE OPERATOR ; Jeremy Linder ; Ana Maria Rivero PA ; Tania Brown Discharge Orders/Prescriptions Prescriptions: No Action lisinopril 30 mg tablet 30 mg PO DAILY RF: 0 testosterone cypionate 200 mg/mL kit 100 mg IM Q4W RF: 0 hydrocodone-acetaminophen [[place]] 10-325 mg tablet 1 tablet PO Q6H PRN (Reason: pain) Qty: 60 RF: 0 metformin 1,000 MG tablet 1,000 mg PO QHS RF: 0 omega-3 fatty acids-fish oil 1 EACH capsule,delayed release(DR/EC) 1 ea PO QHS RF: 0 tizanidine 6 MG capsule 6 mg PO 4X/DAY RF: 0 pregabalin 75 MG capsule 100 mg PO TID RF: 0 Pain Pump (Pt's Own) 1 UNIT Pump 1.1993 mg subcut CONT RF: 0 amlodipine 5 MG tablet 7.5 mg PO DAILY RF: 0 Cbd Oil 1 dose PO/SL QHS RF: 0 Levemir Flexpen 100 unit/mL (3 mL) Insulin Pen 55 unit SUBCUT QHS RF: 0 Referrals / Follow Up: Gino Lackey MD [Primary Care Provider] -
== END 2020-12-15 15:30 | disposition home or self-care (01) ==
LOC: MS3 13:28 → SDC 13:31 → MS3 13:38
PROVIDERS: Anesthesiology; Admitting Provider Orthopaedic Surgery; PCP Family Medicine; Referring Provider Orthopaedic Surgery; Visit Provider Student in an Organized Health Care Education/Training Program
PROC: (CPT 22551; principal; 2020-12-14 07:00)
DX: M50.122 Cervical disc disorder at C5-C6 level with radiculopathy (principal); Z20.828 Contact with and (suspected) exposure to other viral communicable diseases; M50.123 Cervical disc disorder at C6-C7 level with radiculopathy; H91.93 Unspecified hearing loss, bilateral; G89.29 Other chronic pain; G47.30 Sleep apnea, unspecified; I10 Essential (primary) hypertension; E11.9 Type 2 diabetes mellitus without complications; Z79.4 Long term (current) use of insulin; Z79.899 Other long term (current) drug therapy; Z96.89 Presence of other specified functional implants
CPT/HCPCS: 00670; 22551; 22552; 22845; 22853 ×2; 36415; 72020; 80048; 82962; 83036; 83735; 84132; 85025; 86703; 86704; 86705; 86706; 86708; 86709; 86803; 87081; 87340; 87426; 88304; 88305; 93005; 96361; 96365; 96366; 96375; 96376; 99218; 99251; C1713; C9803; J7120; A4216; G0378; G0379; G0463; J2405

== ENCOUNTER 2020-12-16 23:11 | Inpatient (IN) | payer OTHER, MEDICARE, SELFPAY ==
[2020-12-14 15:08] VITALS: BMI 31.8
--- NOTE | 2020-12-16 00:20 | RAD_ITS ---
HISTORY: cough and chest pain. Pt just had a cervical fusion done this past Thursday and complains of chest pain since then. EXAMINATION/TECHNIQUE: XR Chest 1 View: Portable upright AP chest x-ray COMPARISON: April 11, 2017 FINDINGS: LINES/DEVICES: None. LUNGS: Patchy retrocardiac opacity on the left. No vascular congestion or pleural effusion. MEDIASTINUM AND CARDIOVASCULAR STRUCTURES: Stable cardiomegaly. BONES AND SOFT TISSUES: No acute bony abnormalities. Anterior cervical fusion hardware at the thoracic inlet. RAD/Chest 1 View (Portable) IMPRESSION: Cardiomegaly. Possible retrocardiac infiltrate suspicious for pneumonia. Recommend 2 view chest x-ray follow-up. at 0059 Reported and signed by: Ángel Carroll MD Electronically Signed: Ángel Carroll MD at 0:58 EDT Tel , Service support ,
[2020-12-16 23:13] VITALS: BP 181/81; PULSE 78; RESP 20; TEMP 37.4; O2SAT 88; BMI 32.3
--- NOTE | 2020-12-16 23:22 | NURSING ---
pt pulse ox drop to 88 % on ra while walking to room
--- NOTE | 2020-12-16 23:25 | ED.RN ---
RN CALLED FOR EKG, PULLED OLD EKGS FOR
[2020-12-16 23:26] VITALS: BP 194/72; PULSE 75; RESP 17; O2SAT 95
--- NOTE | 2020-12-16 23:31 | EKG12_ITS ---
Test Reason : CP Blood Pressure : / mmHG Vent. Rate : 067 BPM Atrial Rate : 067 BPM P-R Int : 190 ms QRS Dur : 102 ms QT Int : 354 ms P-R-T Axes : 067 025 075 degrees QTc Int : 374 ms Normal sinus rhythm with sinus arrhythmia Poor R wave progression Confirmed by AYAZ BAUTISTA, AHMET ([id number]), editor producer IHSAN FERGUSON ([id number]) on 12/19/2020 8:14:57 AM Referred By: ADIS Confirmed By:AHMET JACOME MD
--- NOTE | 2020-12-16 23:32 | ED.VIS.CHEST ---
HPI History of Present Illness Chief Complaint: Chest Pain Onset/Context/Timing Onset: Yesterday Activity at onset: gradual Timing: Continuous and Waxes and wanes Quality: Positive for Dull Location: Right Chest, Left Chest and - (Upper chest) Associated Symptoms: Positive for Dyspnea and Cough; Negative for Nausea, Vomiting, Fever and Palpitations Narrative Narrative: Patient presents with chest pain or shortness of breath that has gradually gotten worse today. Patient states it has been constant. Patient states he has pain over his upper chest. Patient admits to a cough. Patient denies any fevers but admits to subjective chills. Patient states he is coughing up some dark sputum. Patient had a recent cervical fusion and was discharged 2 days ago. [facility] Medical History (Updated 12/17/20 @ 01:[address] Timmy Leiva, ) Alcohol use Cancer Chronic pain Diabetes Edema Hearing loss, left Hearing loss, right HNP (herniated nucleus pulposus), cervical Hypertension Injury of head and neck Kidney disease Kidney disease Non-smoker Presence of intrathecal pump Sleep apnea Wears glasses Home Medications metformin 1,000 mg PO QHS 06/12/15 [History Last Taken 12/16/20] omega-3 fatty acids-fish oil 1 ea PO QHS 06/12/15 [History Last Taken 12/14/20] pregabalin 100 mg PO TID 04/11/17 [History Last Taken 12/16/20] tizanidine 6 mg PO 4X/DAY 04/11/17 [History Last Taken 12/16/20] Pain Pump (Pt's Own) 1.1993 mg SUBCUT CONT 03/03/18 [History Last Taken 12/16/20] amlodipine 7.5 mg PO DAILY 03/03/18 [History Last Taken 12/16/20] lisinopril 30 mg tablet 30 mg PO DAILY 12/23/19 [History Last Taken 12/16/20] hydrocodone 10 mg-acetaminophen 325 mg tablet 1 tablet PO Q6H PRN #60 tablet 11/14/20 [Rx Last Taken 12/16/20] Cbd Oil 1 dose PO/SL QHS 12/07/20 [History Last Taken 12/15/20] insulin detemir U-100 [Levemir Flexpen] 55 unit SUBCUT QHS 12/07/20 [History Last Taken 12/16/20] Testrome 1 applic MISCELLANEOUS DAILY 12/16/20 [History Last Taken 12/16/20] Allergy/AdvReac Type Severity Reaction Status Date / Time pollen extracts Allergy Itching Verified 12/16/20 23:13 Dacyxin-Rhn-Cnx Reductase AdvReac Pain in Verified 12/16/20 23:13 Inhibitor joints Surgical History (Updated 12/16/20 @ 23:[address] Timmy Leiva DO) History of colonoscopy S/P cervical spinal fusion Status post insertion of intrathecal pump Social History Smoking Status: Never smoker ROS ROS ED Constitutional Constitutional ED: Reports chills and subjective; Denies fever(s) Eyes Eyes: Denies blurry vision or change in vision ENT ENT ED: Reports sore throat; Denies rhinorrhea Cardiovascular Cardiovascular: Reports as per HPI, chest pain and palpitations Respiratory/Chest Respiratory/Chest: Reports cough, dyspnea and sputum Gastrointestinal Gastrointestinal: Denies nausea or vomiting Genitourinary Genitourinary ED: Denies dysuria or hematuria Musculoskeletal Musculoskeletal: Reports back pain and neck pain Integumentary Denies abscess or rash Neurologic Neurologic: Denies headache(s) or weakness Allergic/Immunologic Allergic/Immunologic ED: Denies mouth swelling or urticaria EXAM Physical Exam Const Vital Signs: 12/16/20 23:13 12/16/20 23:22 12/16/20 23:26 Temperature 99.3 F H Temperature Source Oral Pulse Rate 78 75 Respiratory Rate 20 H 17 Respiratory Effort Normal Non-Labored Respiratory Pattern Normal Blood Pressure 181/81 H 194/72 H Blood Pressure Mean 114 112 Pulse Ox 88 95 Oxygen Delivery Method Room Air Room Air Oxygen Flow Rate (L/min) 12/16/20 23:48 12/17/20 00:29 12/17/20 00:45 Temperature Temperature Source Pulse Rate 78 76 Respiratory Rate 22 H 18 Respiratory Effort Respiratory Pattern Blood Pressure 180/72 H 180/72 H Blood Pressure Mean 108 108 Pulse Ox 94 92 88 Oxygen Delivery Method Room Air Room Air Room Air Oxygen Flow Rate (L/min) 12/17/20 01:03 Temperature Temperature Source Pulse Rate 87 Respiratory Rate 24 H Respiratory Effort Respiratory Pattern Blood Pressure 173/77 H Blood Pressure Mean 109 Pulse Ox 91 Oxygen Delivery Method Nasal Cannula Oxygen Flow Rate (L/min) 2 Positive well nourished and well developed General Appearance ED: well developed Resp normal respiratory effort and clear to auscultation bilaterally Effort and Inspection: Negative for respiratory distress Cardio regular rate and regular rhythm GI normal to inspection, nondistended, normoactive bowel sounds, soft to palpation and non-tender Neuro oriented x3, CN's II-XII intact bilaterally and no sensory deficits noted Sensorium / Orientation: awake and alert Motor Exam: strength 5/5 throughout Psych mental status grossly normal Heart Score History: Slightly/Non-Suspicious ECG: Normal Age: >/= 65 years Risk Factors: 1 or 2 Risk Factors Troponin: </= Normal Limit Score: 3 MDM MDM MDM Narrative Medical decision making narrative: EKG was obtained. On my interpretation, it showed a normal sinus rhythm with a rate of 67. MS interval, QRS interval, and QTc intervals were all normal. [place] was normal. There are no acute ST or T wave changes. Portable chest x-ray was obtained. There is 1 view. On my interpretation, there is a left lower lobe infiltrate. There is no pneumothorax. There is cardiomegaly. Bony thorax is normal. Radiologist also interpreted the x-ray and agrees. CBC and comprehensive metabolic profile were essentially within normal limits. Creatinine was 1.93 but was consistent with prior results. Troponin was normal. PT with INR and PTT were normal. Patient's oxygen saturations dropped into the upper 80s while sitting in the bed. When the patient ambulated to the room upon arrival, his pulse oximeter dropped to 88% at that time. Patient was placed on oxygen. Patient was given a dose of Levaquin. Case was discussed with the hospitalist. He will admit the patient to his service. Patient understood and was agreeable with the plan. All questions were answered. Lab Data Attestation: I reviewed the patient's lab results. Labs: Laboratory Results - last 24 hr 12/17/20 12/17/20 12/17/20 00:14 00:14 00:14 WBC 7.3 RBC 5.74 Hgb 16.4 Hct 51.9 MCV 90.4 MCH 28.6 MCHC 31.6 L RDW Std Deviation 53.1 H RDW Coeff of Vick 15.8 H Plt Count 174 MPV 10.5 Immature Gran % (Auto) 0.100 Neut % (Auto) 82.1 H Lymph % (Auto) 9.2 L [place] % (Auto) 6.1 Eos % (Auto) 2.2 Baso % (Auto) 0.3 Absolute Neuts (auto) 6.0 Absolute Lymphs (auto) 0.67 L Nucleated RBC % 0 PT 12.8 INR 1.0 APTT 23.7 L Sodium 136 Potassium 4.1 Chloride 102 Carbon Dioxide 28.0 Anion Gap 6 BUN 27 H Creatinine 1.93 H Estim Creat Clear Calc 38.87 Est GFR (MDRD) Af Amer 45 L Est GFR (MDRD) Non-Af 37 L BUN/Creatinine Ratio 14.0 Glucose 182 H Lactic Acid Calcium 8.7 Total Bilirubin 1.00 AST 38 H ALT 38 Alkaline Phosphatase 88 Troponin I < 0.015 Total Protein 8.0 Albumin 3.4 Globulin 4.6 H Albumin/Globulin Ratio 0.7 L 12/17/20 00:14 WBC RBC Hgb Hct MCV MCH MCHC RDW Std Deviation RDW Coeff of Vick Plt Count MPV Immature Gran % (Auto) Neut % (Auto) Lymph % (Auto) [place] % (Auto) Eos % (Auto) Baso % (Auto) Absolute Neuts (auto) Absolute Lymphs (auto) Nucleated RBC % PT INR APTT Sodium Potassium Chloride Carbon Dioxide Anion Gap BUN Creatinine Estim Creat Clear Calc Est GFR (MDRD) Af Amer Est GFR (MDRD) Non-Af BUN/Creatinine Ratio Glucose Lactic Acid 1.9 Calcium Total Bilirubin AST ALT Alkaline Phosphatase Troponin I Total Protein Albumin Globulin Albumin/Globulin Ratio Radiography Diagnostic Testing: Radiology Impression Chest X-Ray 12/16/20 00:20 IMPRESSION: Cardiomegaly. Possible retrocardiac infiltrate suspicious for pneumonia. Recommend 2 view chest x-ray follow-up. at 0059 Reported and signed by: Ángel Carroll MD Electronically Signed: Ángel Carroll MD at 0:58 EDT Tel , Service support , EKG Initial EKG: Attestation: I personally reviewed and interpreted this EKG as follows: Interpretation: Sinus Rhythm (67), No Acute Injury Pattern and Sinus Arrythmia Prior EKG tracings: available for review Prior: Unchanged (12/12/2020) Treatment and Re-Evaluation Vital Sign Attestation:: Vital signs were reviewed prior to admission. They are stable. Discharge Plan Triage Chief Complaint: Chest Pain ED Provider: Timmy Leiva Dx/Rx/DC Orders Clinical Impression: Pneumonia, Hypoxia Prescriptions: No Action lisinopril 30 mg tablet 30 mg PO DAILY RF: 0 hydrocodone-acetaminophen [[place]] 10-325 mg tablet 1 tablet PO Q6H PRN (Reason: pain) Qty: 60 RF: 0 metformin 1,000 MG tablet 1,000 mg PO QHS RF: 0 omega-3 fatty acids-fish oil 1 EACH capsule,delayed release(DR/EC) 1 ea PO QHS RF: 0 tizanidine 6 MG capsule 6 mg PO 4X/DAY RF: 0 pregabalin 75 MG capsule 100 mg PO TID RF: 0 Pain Pump (Pt's Own) 1 UNIT Pump 1.1993 mg subcut CONT RF: 0 amlodipine 5 MG tablet 7.5 mg PO DAILY RF: 0 Cbd Oil 1 dose PO/SL QHS RF: 0 Levemir Flexpen 100 unit/mL (3 mL) Insulin Pen 55 unit SUBCUT QHS RF: 0 Testrome 1 applic miscellaneous DAILY RF: 0 Primary Care Provider: Gino Lackey Referrals: Gino Lackey MD [Primary Care Provider] -
[2020-12-16 23:48] VITALS: O2SAT 94
[2020-12-17] VITALS (12 sets, daily range): BP systolic 146–180; BP diastolic 63–77; PULSE 61–98; RESP 16–24; TEMP 36.7–37.3; O2SAT 88–98; BMI 31.4
[2020-12-17 00:23] LABS: Absolute Lymphocyte Count 0.67 X10^3/uL (0.83-4.51); Basophil# 0.02 X10^3/uL; Basophil% 0.3 % (0-1); Eosinophil# 0.16 X10^3/uL; Eosinophils% 2.2 % (0-5); Hematocrit 51.9 % (40-54); Hemoglobin 16.4 g/dL (13.0-16.5); Lymphocyte # 0.67 X10^3/ul (0.83-4.51); Lymphocyte % 9.2 % (19-41); Mean Corp Hgb Conc 31.6 g/dL (32-36); Mean Corpuscular Hgb 28.6 pg (27.0-32.0); Mean Corpuscular Volume 90.4 fL (80-94); Mean Platelet Vol. 10.5 fl (6.2-12.0); Monocyte# 0.44 X10^3/uL; Monocyte% 6.1 % (0-10); NRBC Flagged by Analyzer 0 % (0-5); Neutrophil # 5.95 X10^3/uL (2.7-7.7); Neutrophil % 82.1 % (47-70); Platelet Count 174 K/mm3 (150-450); RBC Distribution Width CV 15.8 % (11.6-14.6); RBC Distribution Width SD 53.1 fl (35.1-43.9); Red Blood Count 5.74 M/mm3 (4.6-6.2); White Blood Count 7.3 K/mm3 (4.4-11.0)
--- NOTE | 2020-12-17 00:45 | NURSING ---
pt po 88% on ra. 02 at 2lnc appiled
[2020-12-17 00:49] LABS: ALB/GLOB Ratio 0.7 RATIO (0.9-2.4); AST(SGOT) 38 U/L (15-37); Alanine Aminotransfer ALT/SGPT 38 U/L (16-61); Albumin, Serum 3.4 g/dL (3.2-5.0); Alkaline Phosphatase 88 U/L (45-117); Anion Gap 6 (5-15); BUN 27 mg/dL (7-18); Calcium,Total 8.7 mg/dL (8.5-10.1); Chloride 102 mmol/L (98-107); Creatinine, Serum 1.93 mg/dL (0.70-1.30); EST Glomerular Filtration Rate 37 mL/min (>60); Est Glom Filt Rate - Afr Amer 45 mL/min (>60); Estimated Creatinine Clearance 38.87 ml/min; Globulin 4.6 g/dL (2.2-4.2); Glucose 182 mg/dL (74-106); Potassium 4.1 mmol/L (3.5-5.1); Sodium Level 136 mmol/L (136-145)
[2020-12-17 00:51] LABS: Lactic Acid 1.9 mmol/L (0.4-1.9)
[2020-12-17 00:55] LABS: Prothrombin Time (Protime)PT. 12.8 SECONDS (11.7-14.9)
[2020-12-17 00:56] LABS: Partial Thromboplast Time 23.7 Seconds (24.1-36.2)
[2020-12-17] MEDS: levoFLOXacin IV 750 MG/150 ML BAG 100 MG IV (01:22)
--- NOTE | 2020-12-17 01:33 | ED.RN ---
po 90-91% on 2lnc. increased 02 to 4lnc. Pt walked to bathroom
--- NOTE | 2020-12-17 02:07 | PCM.HP.STD ---
HPI - General General Date of Admission: 12/17/20 HPI Narrative PAOLA LOPEZ, is a 65 M with a significant history of diabetes mellitus and CKD stage III as well as chronic pain with pain pump; who had a cervical fusion on 12/14/2020 at our hospital presenting with substernal chest pain that started on 12/15/2020. He described the pain as soreness. The pain is nonradiating. The pain worsens with coughing and with touch. The pain improves with distraction. The severity of pain is about 5.5 on a scale of 1-10. His symptoms first started with sore throat. Also he has a productive cough of clear sputum. He has chronic generalized body pain. He has pain in his neck. [facility] Medical History Alcohol use Cancer Chronic pain Diabetes Edema Hearing loss, left Hearing loss, right HNP (herniated nucleus pulposus), cervical Hypertension Injury of head and neck Kidney disease Kidney disease Non-smoker Presence of intrathecal pump Sleep apnea Wears glasses Home Medications metformin 1,000 mg PO DINNER 06/12/15 [History Last Taken 12/16/20] omega-3 fatty acids-fish oil 4 ea PO QHS 06/12/15 [History Last Taken 12/14/20] pregabalin 100 mg PO TID 04/11/17 [History Last Taken 12/16/20] tizanidine 6 mg PO 4X/DAY 04/11/17 [History Last Taken 12/16/20] Pain Pump (Pt's Own) 1.1993 mg SUBCUT CONT 03/03/18 [History Last Taken 12/16/20] amlodipine 7.5 mg PO DAILY 03/03/18 [History Last Taken 12/16/20] lisinopril 30 mg tablet 30 mg PO DAILY 12/23/19 [History Last Taken 12/16/20] hydrocodone 10 mg-acetaminophen 325 mg tablet 1 tablet PO Q6H PRN #60 tablet 11/14/20 [Rx Last Taken 12/16/20] Cbd Oil 1 dose PO/SL QHS 12/07/20 [History Last Taken 12/15/20] insulin detemir U-100 [Levemir Flexpen] 55 unit SUBCUT QHS 12/07/20 [History Last Taken 12/16/20] Testrome 1 applic MISCELLANEOUS DAILY 12/16/20 [History Last Taken 12/16/20] Allergy/AdvReac Type Severity Reaction Status Date / Time pollen extracts Allergy Itching Verified 12/16/20 23:13 Tdpzdli-Gxo-Wpi Reductase AdvReac Pain in Verified 12/16/20 23:13 Inhibitor joints Family History Mother Cancer Father Heart disease Surgical History History of colonoscopy S/P cervical spinal fusion Status post insertion of intrathecal pump Social History Smoking Status: Never smoker ROS Constitutional Constitutional: Reports chills and fever(s) Eyes Eyes: Denies blurry vision or change in eye color ENT HEENT: Denies abnormal hearing, dysphagia or ear pain Cardiovascular Cardiovascular: Reports chest pain; Denies edema Respiratory/Chest Respiratory/Chest: Reports cough and productive cough Gastrointestinal Gastrointestinal: Reports constipation; Denies abdominal pain or coffee ground emesis Genitourinary Genitourinary: Denies burning urination or difficulty urinating Musculoskeletal Musculoskeletal: Reports neck pain Neurologic Neurologic: Denies abnormal gait or abnormal speech Psychiatric Psychiatric: Denies anxiety or depression Endocrine Endocrinology: Denies change in body appearance, polydipsia or polyuria Vital Signs Vital Signs Vital Signs: 12/16/20 23:13 12/16/20 23:22 12/16/20 23:26 Temperature 99.3 F H Temperature Source Oral Pulse Rate 78 75 Respiratory Rate 20 H 17 Respiratory Effort Normal Non-Labored Respiratory Pattern Normal Blood Pressure 181/81 H 194/72 H Blood Pressure Mean 114 112 Pulse Ox 88 95 Oxygen Delivery Method Room Air Room Air Oxygen Flow Rate (L/min) 12/16/20 23:48 12/17/20 00:29 12/17/20 00:45 Temperature Temperature Source Pulse Rate 78 76 Respiratory Rate 22 H 18 Respiratory Effort Respiratory Pattern Blood Pressure 180/72 H 180/72 H Blood Pressure Mean 108 108 Pulse Ox 94 92 88 Oxygen Delivery Method Room Air Room Air Room Air Oxygen Flow Rate (L/min) 12/17/20 01:03 Temperature Temperature Source Pulse Rate 87 Respiratory Rate 24 H Respiratory Effort Respiratory Pattern Blood Pressure 173/77 H Blood Pressure Mean 109 Pulse Ox 91 Oxygen Delivery Method Nasal Cannula Oxygen Flow Rate (L/min) 2 Physical Exam Narrative Alert and oriented x3 Head in cervical collar Lungs rhonchi; eupnea Heart sounds S1-S2. No murmur, gallop or rubs. Abdomen bowel sounds present soft, distended but nontender Extremity without edema cyanosis or clubbing. Lab / Micro Data Result Diagrams: 12/17/20 00:14 12/17/20 00:14 Labs: Laboratory Results - last 24 hr 12/17/20 12/17/20 12/17/20 00:14 00:14 00:14 WBC 7.3 RBC 5.74 Hgb 16.4 Hct 51.9 MCV 90.4 MCH 28.6 MCHC 31.6 L RDW Std Deviation 53.1 H RDW Coeff of Vick 15.8 H Plt Count 174 MPV 10.5 Immature Gran % (Auto) 0.100 Neut % (Auto) 82.1 H Lymph % (Auto) 9.2 L Swisher % (Auto) 6.1 Eos % (Auto) 2.2 Baso % (Auto) 0.3 Absolute Neuts (auto) 6.0 Absolute Lymphs (auto) 0.67 L Nucleated RBC % 0 PT 12.8 INR 1.0 APTT 23.7 L Sodium 136 Potassium 4.1 Chloride 102 Carbon Dioxide 28.0 Anion Gap 6 BUN 27 H Creatinine 1.93 H Estim Creat Clear Calc 38.87 Est GFR (MDRD) Af Amer 45 L Est GFR (MDRD) Non-Af 37 L BUN/Creatinine Ratio 14.0 Glucose 182 H Lactic Acid Calcium 8.7 Total Bilirubin 1.00 AST 38 H ALT 38 Alkaline Phosphatase 88 Troponin I < 0.015 Total Protein 8.0 Albumin 3.4 Globulin 4.6 H Albumin/Globulin Ratio 0.7 L 12/17/20 00:14 WBC RBC Hgb Hct MCV MCH MCHC RDW Std Deviation RDW Coeff of Vick Plt Count MPV Immature Gran % (Auto) Neut % (Auto) Lymph % (Auto) Swisher % (Auto) Eos % (Auto) Baso % (Auto) Absolute Neuts (auto) Absolute Lymphs (auto) Nucleated RBC % PT INR APTT Sodium Potassium Chloride Carbon Dioxide Anion Gap BUN Creatinine Estim Creat Clear Calc Est GFR (MDRD) Af Amer Est GFR (MDRD) Non-Af BUN/Creatinine Ratio Glucose Lactic Acid 1.9 Calcium Total Bilirubin AST ALT Alkaline Phosphatase Troponin I Total Protein Albumin Globulin Albumin/Globulin Ratio Radiology Impression Chest X-Ray 12/16/20 00:20 IMPRESSION: Cardiomegaly. Possible retrocardiac infiltrate suspicious for pneumonia. Recommend 2 view chest x-ray follow-up. at 0059 Reported and signed by: Ángel Carroll MD Electronically Signed: Ángel Carroll MD at 0:58 EDT Tel , Service support , Assessment & Plan Assessment/Plan (1) Pneumonia: QUALIFIERS: Laterality: unspecified laterality Lung location: unspecified part of lung Pneumonia type: due to unspecified organism Qualified Code(s): J18.9 - Pneumonia, unspecified organism (2) Hypertension: QUALIFIERS: Hypertension type: essential hypertension Qualified Code(s): I10 - Essential (primary) hypertension (3) Diabetes: QUALIFIERS: Diabetes mellitus complication status: with unspecified complications Diabetes mellitus prison insulin use: with intermediate accountant use Diabetes mellitus type: type 2 Qualified Code(s): E11.8 - Type 2 diabetes mellitus with unspecified complications; Z79.4 - intermediate accountant (current) use of insulin PLAN: Pneumonia Gram-positive or gram-negative. Covid screen negative Started on Levaquin IV at emergency department. Ceftriaxone and azithromycin ordered. Albuterol as needed ordered Incentive spirometer ordered. 2 lozenges as needed ordered. Hypertension Blood pressure is not within goal Amlodipine and lisinopril continued. As needed hydralazine ordered. Trend blood pressure and adjust blood pressure medications. Diabetes mellitus with nephropathy Patient with hyperglycemia on presentation Basal insulin adjusted. Hold Metformin in the hospital setting. Accu-Chek QA CHS with correction scale insulin ordered. Constipation MiraLAX ordered Senokot-S as needed ordered. CKD stage III Stable Chronic pain/cervical fusion On pain pump.On home CBD oil Muscle relaxant continued As needed [place] continued. DVT prophylaxis Subcutaneous heparin.
[2020-12-17] MEDS: Polyethylene Glycol 3350 17 GM PACKET PO ×2 (03:54→09:58)
[2020-12-17] MEDS: Pregabalin 50 MG Capsule 100 MG PO ×3 (05:13→23:10)
[2020-12-17] MEDS: Heparin Injection (Vial) 5,000 UNIT/ML VIAL 5000 UNIT SC ×3 (05:13→22:54)
[2020-12-17] MEDS: tiZANidine HCl 2 MG Tablet 6 MG PO ×4 (05:13→22:53)
[2020-12-17 06:26] LABS: Bedside Glucose 173 mg/dL (70-110)
[2020-12-17] MEDS: Insulin Lispro 100 UNIT/ML INSULN.PEN SC ×4 (06:28→22:49)
[2020-12-17 07:21] LABS: Absolute Lymphocyte Count 0.46 X10^3/uL (0.83-4.51); Absolute Neutrophil Count 8.2 X10^3/uL (2.0-7.7); Basophil# 0.04 X10^3/uL; Basophil% 0.4 % (0-1); Eosinophil# 0.02 X10^3/uL; Eosinophils% 0.2 % (0-5); Hematocrit 43.1 % (40-54); Lymphocyte # 0.46 X10^3/ul (0.83-4.51); Lymphocyte % 4.6 % (19-41); Mean Corp Hgb Conc 32.5 g/dL (32-36); Mean Corpuscular Hgb 29.1 pg (27.0-32.0); Mean Corpuscular Volume 89.6 fL (80-94); Mean Platelet Vol. 10.8 fl (6.2-12.0); Monocyte# 1.27 X10^3/uL; Monocyte% 12.7 % (0-10); NRBC Flagged by Analyzer 0 % (0-5); Neutrophil # 8.18 X10^3/uL (2.7-7.7); Neutrophil % 81.6 % (47-70); POSITIVE DIFFERENTIAL YES; Platelet Count 155 K/mm3 (150-450); RBC Distribution Width CV 15.4 % (11.6-14.6); RBC Distribution Width SD 50.9 fl (35.1-43.9); Red Blood Count 4.81 M/mm3 (4.6-6.2)
[2020-12-17 07:28] LABS: Differential Indicated SCAN CRITERIA MET
[2020-12-17 07:44] LABS: Anion Gap 6 (5-15); BUN 29 mg/dL (7-18); BUN/Creat Ratio 15.1 RATIO (10-20); Calcium,Total 8.2 mg/dL (8.5-10.1); Chloride 104 mmol/L (98-107); Creatinine, Serum 1.92 mg/dL (0.70-1.30); EST Glomerular Filtration Rate 37 mL/min (>60); Est Glom Filt Rate - Afr Amer 45 mL/min (>60); Estimated Creatinine Clearance 39.08 ml/min; Glucose 166 mg/dL (74-106); Potassium 3.9 mmol/L (3.5-5.1); Sodium Level 137 mmol/L (136-145)
[2020-12-17] MEDS: Senna/Docusate Sodium 1 Tablet 2 TABLET PO ×2 (08:24→22:53)
[2020-12-17] MEDS: HYDROcodone Bitartrate/Apap 5/325 Tablet PO (08:24)
[2020-12-17] MEDS: Ceftriaxone 1 GM/50 ML BAG IV (09:58)
[2020-12-17] MEDS: 0.9% Saline Lock 10 ML Syringe IV ×3 (09:58→23:17)
[2020-12-17] MEDS: Lisinopril 10 MG Tablet 30 MG PO (09:59)
[2020-12-17] MEDS: guaiFENesin 600 MG Tablet PO ×2 (09:59→22:53)
[2020-12-17] MEDS: amLODIPine 2.5 MG Tablet 7.5 MG PO (09:59)
--- NOTE | 2020-12-17 12:00 | CASEMGMT ---
RN CM Face to Face with patient for initial transition planning/care coordination assessment. RN CM introduced self and role at [facility]. Patient sitting in chair, alert and oriented, at bedside. Patient willing to participate in assessment and is able to answer all questions appropriately. Care providers, pharmacy, and demographics verified. Patient wishes to discharge home, denies need for home health at this time. Patient states he has no further needs or concerns at this time. CM to follow for discharge planning needs that may arise. PCP: Ziyad Specialists: Grazyna, automobile accessories installer; Suly, urologist Preferred Pharmacy: [facility] at discharge. Insurance: [employer] Prescription Benefit: yes Living Will/HPOA: none LNOK: Living Arrangements: Patient lives with in a condo, no steps to enter. Patient states he is independent at home Transportation: self/ DME/HHC: Patient states he has a cane at home, denies further DME or previous HHC. Disposition Plan: Patient to discharge home with family support and follow-up plans in place. Harmony DODD, RN, CM
[2020-12-17 12:01] LABS: Bedside Glucose 209 mg/dL (70-110)
--- NOTE | 2020-12-17 13:04 | CASEMGMT ---
Pt does not have LW/POA forms. SW spoke w/pt and about completing the forms, reviewed them and gave them blank copies, encouraged pt to call to make an appointment when he feels ready to complete the forms, and SW can assist. Pt states understanding. DHRUV Gaytan
--- NOTE | 2020-12-17 15:23 | CHAPLAIN ---
Type of Pastoral Visit _x__ Initial Visit ___ Follow-up Visit ___ On-call Visit ___ General Patient Visit ___ Spiritual Assessment ___ Family Conference ___ Bereavement ___ Rapid Response ___ Code Blue ___ Other (describe below) Pastoral Care Referral From _x__ Patient ___ Family ___ Nurse ___ Physician ___ Electrical Automation Engineer ___ Herbarium Worker ___ Other (describe below) Sacrament/Intervention _x__ Active listening ___ Anointing ___ Bahai ___ Bereavement ___ Communion ___ Yoly exploration ___ ___ Life review _x__ Prayer ___ Reconciliation ___ Sacrament of Sick _x__ Supportive presence ___ Wedding ___ Other (describe below) Pastoral Comments
--- NOTE | 2020-12-17 15:48 | CPS ---
started by nursing
[2020-12-17 17:11] LABS: Bedside Glucose 185 mg/dL (70-110)
[2020-12-17 23:31] LABS: Bedside Glucose 200 mg/dL (70-110)
[2020-12-18] VITALS (9 sets, daily range): BP systolic 154–182; BP diastolic 69–87; PULSE 47–73; RESP 16–20; TEMP 36.4–36.7; O2SAT 88–99
[2020-12-18] MEDS: HYDROcodone Bitartrate/Apap 5/325 Tablet PO (03:44)
--- NOTE | 2020-12-18 05:01 | RAD_ITS ---
STUDY: X-RAY CHEST REASON FOR EXAM: Male, 65 years old. Pneumonia, follow-up TECHNIQUE: Single AP portable view of the chest. COMPARISON: Comparison is made with prior study dated 12/17/2020. FINDINGS: Persistent mild increased markings in the right infrahilar region. Minimal residual markings in the left lung base. There is no demonstrated pleural abnormality. There is moderate cardiac enlargement. Normal mediastinum and karl. Normal visualized pulmonary arteries. Normal visualized aortic arch and descending thoracic aorta. Normal visualized thoracic spine. Normal visualized ribs, clavicles, and shoulders. Prior fusion in the lower cervical spine. There is no demonstrated abnormality of the visualized soft tissue structures of the upper abdomen. RAD/Chest 1 View (Portable) IMPRESSION: Cardiomegaly. Minimal residual increased markings at the left lung base. Persistent mild increased markings at the right lung base. Electronically Signed: Trino Herbert MD at 14:23 EDT , Service support ,
[2020-12-18] MEDS: Pregabalin 50 MG Capsule 100 MG PO (05:31)
[2020-12-18] MEDS: Heparin Injection (Vial) 5,000 UNIT/ML VIAL 5000 UNIT SC (05:32)
[2020-12-18 06:50] LABS: Bedside Glucose 112 mg/dL (70-110)
[2020-12-18] MEDS: Polyethylene Glycol 3350 17 GM PACKET PO (09:41)
[2020-12-18] MEDS: guaiFENesin 600 MG Tablet PO (09:42)
[2020-12-18] MEDS: amLODIPine 2.5 MG Tablet 7.5 MG PO (09:42)
[2020-12-18] MEDS: Ceftriaxone 1 GM/50 ML BAG IV (09:42)
[2020-12-18] MEDS: tiZANidine HCl 2 MG Tablet 6 MG PO (09:43)
[2020-12-18] MEDS: Senna/Docusate Sodium 1 Tablet 2 TABLET PO (09:43)
[2020-12-18] MEDS: Lisinopril 10 MG Tablet 30 MG PO (09:43)
[2020-12-18] MEDS: Insulin Lispro 100 UNIT/ML INSULN.PEN SC (10:53)
--- NOTE | 2020-12-18 10:55 | PCM.DC.SUM ---
Providers Date of Admission: 12/17/20 Primary Care Physician: Dr. Gino Lackey MD Reason For Visit: pneumonia Diagnosis Discharge Diagnosis (1) Pneumonia: Status: Acute Code(s): J18.9 - Pneumonia, unspecified organism Qualifiers: Pneumonia type: due to unspecified organism Laterality: unspecified laterality Lung location: unspecified part of lung Qualified Code(s): J18.9 - Pneumonia, unspecified organism (2) Hypertension: Status: Chronic Code(s): I10 - Essential (primary) hypertension Qualifiers: Hypertension type: essential hypertension Qualified Code(s): I10 - Essential (primary) hypertension (3) Diabetes: Status: Chronic Code(s): E11.9 - Type 2 diabetes mellitus without complications Qualifiers: Diabetes mellitus type: type 2 Diabetes mellitus complication status: with unspecified complications Diabetes mellitus intermediate insulin use: with intermediate use Qualified Code(s): E11.8 - Type 2 diabetes mellitus with unspecified complications; Z79.4 - FDC (current) use of insulin Medications at Discharge Home Medications metformin 1,000 mg PO DINNER 06/12/15 omega-3 fatty acids-fish oil 4 ea PO QHS 06/12/15 pregabalin 100 mg PO TID 04/11/17 tizanidine 6 mg PO 4X/DAY 04/11/17 Pain Pump (Pt's Own) 1.1993 mg SUBCUT CONT 03/03/18 amlodipine 7.5 mg PO DAILY 03/03/18 lisinopril 30 mg tablet 30 mg PO DAILY 12/23/19 hydrocodone 10 mg-acetaminophen 325 mg tablet 1 tablet PO Q6H PRN #60 tablet 11/14/20 Cbd Oil 1 dose PO/SL QHS 12/07/20 insulin detemir U-100 55 unit SUBCUT QHS 12/07/20 Testrome 1 applic MISCELLANEOUS DAILY 12/16/20 amoxicillin-pot clavulanate [Augmentin] 1 tab PO Q12H #14 tab 12/18/20 ABG / Lab / Microbiology Data Result Diagrams: 12/17/20 06:45 12/17/20 06:45 Laboratory: Laboratory Results - last 24 hr 12/17/20 12/17/20 12/17/20 11:35 16:52 22:48 POC Glucose 209 H 185 H 200 H 12/18/20 06:35 POC Glucose 112 H Microbiology: Microbiology 12/17/20 02:07 Nasal Secretion SARS-CoV-2 Antigen (Rapid) - Final D/C Instructions Discharge Diet: Low fat / Low cholesterol, 2000 mg Sodium Diet and Carb Control Diet Discharge Activity: Return to Normal Activity Discharge Plan Admission Admit Date/Time: 12/17/20 02:07 Primary Reason for Your Visit: Pneumonia Attending Provider: Kena Orellana Primary Care Provider: Gino Lackey Instructions Additional Instructions / Restrictions: Continue to take all your medications as prescribed. Continue to use incentive spirometer. Keep yourself hydrated. Follow-up with your recent postop instructions. Discharge Orders/Prescriptions Prescriptions: New amoxicillin-pot clavulanate [Augmentin] 875-125 mg tablet 1 tab PO Q12H Qty: 14 RF: 0 Continued lisinopril 30 mg tablet 30 mg PO DAILY RF: 0 hydrocodone-acetaminophen [[place]] 10-325 mg tablet 1 tablet PO Q6H PRN (Reason: pain) Qty: 60 RF: 0 metformin 1,000 MG tablet 1,000 mg PO DINNER RF: 0 omega-3 fatty acids-fish oil 1 EACH capsule,delayed release(DR/EC) 4 ea PO QHS RF: 0 tizanidine 6 MG capsule 6 mg PO 4X/DAY RF: 0 pregabalin 75 MG capsule 100 mg PO TID RF: 0 Pain Pump (Pt's Own) 1 UNIT Pump 1.1993 mg subcut CONT RF: 0 amlodipine 5 MG tablet 7.5 mg PO DAILY RF: 0 Cbd Oil 1 dose PO/SL QHS RF: 0 insulin detemir U-100 100 unit/mL (3 mL) Insulin Pen 55 unit SUBCUT QHS RF: 0 Testrome 1 applic miscellaneous DAILY RF: 0 Referrals / Follow Up: Gino Lackey MD [Primary Care Provider] - Within 2 Weeks Disposition Disposition (needs filled in before D/C Order can be placed): Home, self care
[2020-12-18 11:11] LABS: Bedside Glucose 163 mg/dL (70-110)
--- NOTE | 2020-12-18 15:02 | PHA.DC.MR ---
Pharmacy Service has performed discharge medication reconciliation for this patient. The patient's discharge medication list was reviewed for discrepancies and discrepancies were resolved. Home Medications metformin 1,000 mg PO DINNER 06/12/15 omega-3 fatty acids-fish oil 4 ea PO QHS 06/12/15 pregabalin 100 mg PO TID 04/11/17 tizanidine 6 mg PO 4X/DAY 04/11/17 Pain Pump (Pt's Own) 1.1993 mg SUBCUT CONT 03/03/18 amlodipine 7.5 mg PO DAILY 03/03/18 lisinopril 30 mg tablet 30 mg PO DAILY 12/23/19 hydrocodone 10 mg-acetaminophen 325 mg tablet 1 tablet PO Q6H PRN #60 tablet 11/14/20 Cbd Oil 1 dose PO/SL QHS 12/07/20 insulin detemir U-100 55 unit SUBCUT QHS 12/07/20 Testrome 1 applic MISCELLANEOUS DAILY 12/16/20 amoxicillin-pot clavulanate [Augmentin] 1 tab PO Q12H #14 tab 12/18/20
--- NOTE | 2020-12-18 17:33 | DS.PCM_ITS ---
Providers Date of Admission: 12/17/20 Date of Discharge: 12/18/20 Primary Care Physician: Dr. Gino Lackey MD Reason For Visit: pneumonia Diagnosis Discharge Diagnosis (1) Pneumonia: Status: Acute Code(s): J18.9 - Pneumonia, unspecified organism Qualifiers: Pneumonia type: due to unspecified organism Laterality: unspecified la terality Lung location: unspecified part of lung Qualified Code(s): J18.9 - Pneumonia, unspecified organism (2) Hypertension: Status: Chronic Code(s): I10 - Essential (primary) hypertension Qualifiers: Hypertension type: essential hypertension Qualified Code(s): I10 - Essential (primary) hypertension (3) Diabetes: Status: Chronic Code(s): E11.9 - Type 2 diabetes mellitus without complications Qualifiers: Diabetes mellitus type: type 2 Diabetes mellitus complication status: with unspecified complications Diabetes mellitus long-term insulin use: with supervisor intermediates use Qualified Code(s): E11.8 - Type 2 diabetes mellitus with unspecified complications; Z79.4 - retirement (current) use of insulin Medications at Discharge Home Medications metformin 1,000 mg PO DINNER 06/12/15 omega-3 fatty acids-fish oil 4 ea PO QHS 06/12/15 pregabalin 100 mg PO TID 04/11/17 tizanidine 6 mg PO 4X/DAY 04/11/17 Pain Pump (Pt's Own) 1.1993 mg SUBCUT CONT 03/03/18 amlodipine 7.5 mg PO DAILY 03/03/18 lisinopril 30 mg tablet 30 mg PO DAILY 12/23/19 hydrocodone 10 mg-acetaminophen 325 mg tablet 1 tablet PO Q6H PRN #60 tablet 11/14/20 Cbd Oil 1 dose PO/SL QHS 12/07/20 insulin detemir U-100 55 unit SUBCUT QHS 12/07/20 Testrome 1 applic MISCELLANEOUS DAILY 12/16/20 amoxicillin-pot clavulanate [Augmentin] 1 tab PO Q12H #14 tab 12/18/20 Hospital Course Operations None Procedures None Summary of Care Provided Minutes Spent on Discharge: 40 Hospital Course: 65-year old with past medical history of type II DM, chronic pain syndrome who recently had a cervical fusion on 12/14/20 comes in with substernal chest pain that started on 5/8/201. Pain is worse with coughing. Patient admits to a productive cough; sputum is clear. His work-up in the hospital was significant for possible retrocardiac infiltrate suspicious for pneumonia seen on x-ray. He was started on IV Levaquin in the emergency room and switched to IV ceftriaxone and azithromycin. Patient was on oxygen. He was continued on the IV antibiotics and started on incentive spirometer. He was off oxygen the next day. He felt improved. He was discharged on Augmentin to complete 1 week. He was advised to continue with his post op instructions for the cervical fusion. Physical Exam Narrative Physical exam: General: Alert, Oriented x3, Cooperative, No apparent distress, Well developed HEENT: Atraumatic, dressing over the anterior aspect of the neck, dry, intact, patient in a soft collar Oral: Moist Mucosa Neck: Supple Lungs: Diminished at the lung bases, coarse crackles heard Cardiovascular: HS I+II, regular, no murmurs Abdomen: Bowel Sounds Present, Soft, Non Tender, subcutaneous pain pump Extremities: No edema Skin: No rashes, No breakdown Neurological: Grossly intact Psych/Mental Status: Appropriate ABG / Lab / Microbiology Data Result Diagrams: 12/17/20 06:45 12/17/20 06:45 Laboratory: Laboratory Results - last 24 hr 12/17/20 12/18/20 12/18/20 22:48 06:35 10:52 POC Glucose 200 H 112 H 163 H Microbiology: Microbiology 12/17/20 02:07 Nasal Secretion SARS-CoV-2 Antigen (Rapid) - Final Radiography Diagnostic Testing: Radiology Impression Chest X-Ray 12/18/20 05:01 IMPRESSION: Cardiomegaly. Minimal residual increased markings at the left lung base. Persistent mild increased markings at the right lung base. Electronically Signed: Trino Herbert MD at 14:23 EDT , Service support , D/C Instructions Discharge Diet: Low fat / Low cholesterol, 2000 mg Sodium Diet and Carb Control Diet Discharge Activity: Return to Normal Activity Meaningful Use Info Meaningful Use Diagnoses (Choose all that apply): None applicable Discharge Plan Admission Admit Date/Time: 12/17/20 02:07 Primary Reason for Your Visit: Pneumonia Attending Provider: Kena Orellana Primary Care Provider: Gino Lackey Instructions Additional Instructions / Restrictions: Continue to take all your medications as prescribed. Continue to use incentive spirometer. Keep yourself hydrated. Follow-up with your recent postop instructions. Discharge Orders/Prescriptions Prescriptions: New amoxicillin-pot clavulanate [Augmentin] 875-125 mg tablet 1 tab PO Q12H Qty: 14 RF: 0 Continued lisinopril 30 mg tablet 30 mg PO DAILY RF: 0 hydrocodone-acetaminophen [[place]] 10-325 mg tablet 1 tablet PO Q6H PRN (Reason: pain) Qty: 60 RF: 0 metformin 1,000 MG tablet 1,000 mg PO DINNER RF: 0 omega-3 fatty acids-fish oil 1 EACH capsule,delayed release(DR/EC) 4 ea PO QHS RF: 0 tizanidine 6 MG capsule 6 mg PO 4X/DAY RF: 0 pregabalin 75 MG capsule 100 mg PO TID RF: 0 Pain Pump (Pt's Own) 1 UNIT Pump 1.1993 mg subcut CONT RF: 0 amlodipine 5 MG tablet 7.5 mg PO DAILY RF: 0 Cbd Oil 1 dose PO/SL QHS RF: 0 insulin detemir U-100 100 unit/mL (3 mL) Insulin Pen 55 unit SUBCUT QHS RF: 0 Testrome 1 applic miscellaneous DAILY RF: 0 Referrals / Follow Up: Gino Lackey MD [Primary Care Provider] - Within 2 Weeks Disposition Disposition (needs filled in before D/C Order can be placed): Home, self care Visit Charges Inpatient E&M: 35348 Disch Hosp
== END 2020-12-18 13:12 | disposition home or self-care (01) | DRG 195 ==
LOC: ED 12-17 01:05 → MS3 12-17 02:36
PROVIDERS: Admitting Provider Hospitalist; Emergency Provider Emergency Medicine; PCP Family Medicine; Visit Provider Internal Medicine
DX: J18.9 Pneumonia, unspecified organism (principal); G47.30 Sleep apnea, unspecified; G89.4 Chronic pain syndrome; H91.93 Unspecified hearing loss, bilateral; M50.20 Other cervical disc displacement, unspecified cervical region; E11.65 Type 2 diabetes mellitus with hyperglycemia; I12.9 Hypertensive chronic kidney disease with stage 1 through stage 4 chronic kidney disease, or unspecified chronic kidney disease; E11.22 Type 2 diabetes mellitus with diabetic chronic kidney disease; N18.32 Chronic kidney disease, stage 3b; K59.00 Constipation, unspecified; Z79.4 Long term (current) use of insulin; Z98.1 Arthrodesis status; Z97.8 Presence of other specified devices; Z79.899 Other long term (current) drug therapy
CPT/HCPCS: 36415; 71045; 80048; 80053; 82962; 83605; 84484; 85025; 85610; 85730; 87426; 93005; 97162; 97166; 99251; 99285; J7050; A4216; G0463

== ENCOUNTER 2020-12-21 15:45 | Emergency (ER) | payer OTHER, SELFPAY ==
[2020-12-17 03:26] VITALS: BMI 31.4
[2020-12-21 15:48] VITALS: BP 171/77; PULSE 73; RESP 17; TEMP 37; O2SAT 96; BMI 30.5
--- NOTE | 2020-12-21 16:32 | EDS_ITS ---
HPI History of Present Illness Chief Complaint: Lower Extremity Injury Informant: patient Narrative Narrative: Patient presents with left ankle swelling. Is been ongoing for almost a week. Last week he had a cervical fusion performed. He was also admitted to the hospital 5 days ago for pneumonia. At both of those admissions he had subcutaneous heparin. He then developed some ankle swelling on the left- hand side. He denies any specific injury. No erythema or fever. Pain is worse with walking. He denies any history of DVT or PE. He takes no blood thinning medications orally at home. [facility] Medical History Alcohol use Cancer Chronic pain Diabetes Edema Hearing loss, left Hearing loss, right HNP (herniated nucleus pulposus), cervical Hypertension Injury of head and neck Kidney disease Kidney disease Non-smoker Presence of intrathecal pump Sleep apnea Wears glasses Home Medications metformin 1,000 mg PO DINNER 06/12/15 [History Last Taken 12/16/20] omega-3 fatty acids-fish oil 4 ea PO QHS 06/12/15 [History Last Taken 12/14/20] pregabalin 100 mg PO TID 04/11/17 [History Last Taken 12/16/20] tizanidine 6 mg PO 4X/DAY 04/11/17 [History Last Taken 12/16/20] Pain Pump (Pt's Own) 1.1993 mg SUBCUT CONT 03/03/18 [History Last Taken 12/16/20] amlodipine 7.5 mg PO DAILY 03/03/18 [History Last Taken 12/16/20] lisinopril 30 mg tablet 30 mg PO DAILY 12/23/19 [History Last Taken 12/16/20] hydrocodone 10 mg-acetaminophen 325 mg tablet 1 tablet PO Q6H PRN #60 tablet 0 11/14/20 [Rx Last Taken 12/16/20] Cbd Oil 1 dose PO/SL QHS 12/07/20 [History Last Taken 12/15/20] insulin detemir U-100 55 unit SUBCUT QHS 12/07/20 [History Last Taken 12/16/20] Testrome 1 applic MISCELLANEOUS DAILY 12/16/20 [History Last Taken 12/16/20] amoxicillin-pot clavulanate [Augmentin] 1 tab PO Q12H #14 tab 12/18/20 [Rx Last Taken Unknown] apixaban [Eliquis] 5 mg PO BID #74 tab 12/21/20 [Rx Last Taken Unknown] Allergy/AdvReac Type Severity Reaction Status Date / Time pollen extracts Allergy Itching Verified 12/21/20 15:47 Cezxcsu-Dpn-Nev Reductase AdvReac Pain in Verified 12/21/20 15:47 Inhibitor joints Family History Mother Cancer Father Heart disease Surgical History History of colonoscopy S/P cervical spinal fusion Status post insertion of intrathecal pump Social History Smoking Status: Never smoker ROS ROS ED Constitutional Constitutional ED: Denies chills or fever(s) Eyes Eyes: Denies blurry vision, change in vision or diplopia ENT ENT ED: Denies ear pain, rhinorrhea or sore throat Cardiovascular Cardiovascular: Denies chest pain or palpitations Respiratory/Chest Respiratory/Chest: Denies cough, dyspnea or sputum Gastrointestinal Gastrointestinal: Denies abdominal pain, diarrhea, nausea or vomiting Genitourinary Genitourinary ED: Denies dysuria, hematuria or urinary frequency Musculoskeletal Musculoskeletal: Reports other Details: Left ankle swelling Integumentary Denies change in pigmentation or rash Neurologic Neurologic: Denies headache(s), numbness or weakness Psychiatric Psychiatric: Denies anxiety or depression Endocrine Endocrinology: Denies polydipsia or polyuria EXAM Physical Exam Const Vital Signs: 12/21/20 15:48 Temperature 98.6 F Temperature Source Temporal Pulse Rate 73 Respiratory Rate 17 Blood Pressure 171/77 H Blood Pressure Mean 108 Pulse Ox 96 Oxygen Delivery Method Room Air Positive well nourished and well developed General Appearance ED: well developed HEENT normocephalic and atraumatic Eyes PERRL Neck full ROM Extremity Extremity Narrative: Left leg does have some asymmetric swelling. It is more prominent near the ankle joint. There is no erythema. He does have some tenderness on the medial portion of the soft tissue. His peripheral pulses are equal. Temperature is warm on both legs. Neuro oriented x3 and CN's II-XII intact bilaterally Sensorium / Orientation: alert Psych mental status grossly normal Skin Rashes: no rashes MDM MDM MDM Narrative Medical decision making narrative: X-ray shows soft tissue swelling. Ultrasound does show evidence of a clot in the GSV. Patient will be started on Eliquis. The patient did have a recent surgery however, he was on heparin during his hospital stay afterwards I feel it safe to give an oral anticoagulant. He will follow-up with his PCP. Radiography Diagnostic Testing: Radiology Impression Ankle X-Ray 12/21/20 16:45 IMPRESSION: 1. Moderate soft tissue swelling Electronically Signed: Elver Franz MD at 17:35 EDT , Service support , Discharge Plan Triage Chief Complaint: Lower Extremity Injury ED Provider: Jesus Schwartz Dx/Rx/DC Orders Clinical Impression: Acute deep vein thrombosis (DVT) of left lower extremity Instructions: ED Deep Vein Thrombosis (DVT) Prescriptions: New Eliquis 5 mg tablet 5 mg PO BID Qty: 74 RF: 0 No Action lisinopril 30 mg tablet 30 mg PO DAILY RF: 0 hydrocodone-acetaminophen [Erath] 10-325 mg tablet 1 tablet PO Q6H PRN (Reason: pain) Qty: 60 RF: 0 metformin 1,000 MG tablet 1,000 mg PO DINNER RF: 0 omega-3 fatty acids-fish oil 1 EACH capsule,delayed release(DR/EC) 4 ea PO QHS RF: 0 tizanidine 6 MG capsule 6 mg PO 4X/DAY RF: 0 pregabalin 75 MG capsule 100 mg PO TID RF: 0 Pain Pump (Pt's Own) 1 UNIT Pump 1.1993 mg subcut CONT RF: 0 amlodipine 5 MG tablet 7.5 mg PO DAILY RF: 0 Cbd Oil 1 dose PO/SL QHS RF: 0 insulin detemir U-100 100 unit/mL (3 mL) Insulin Pen 55 unit SUBCUT QHS RF: 0 Testrome 1 applic miscellaneous DAILY RF: 0 amoxicillin-pot clavulanate [Augmentin] 875-125 mg tablet 1 tab PO Q12H Qty: 14 RF: 0 Primary Care Provider: Gino Lackey Referrals: Gino Lackey MD [Primary Care Provider] - Disposition Disposition: Home, self care
--- NOTE | 2020-12-21 16:45 | RAD_ITS ---
STUDY: X-RAY - LEFT ANKLE REASON FOR EXAM: Male, 65 years old. swelling TECHNIQUE: 3 view(s) of the ankle. COMPARISON: None. FINDINGS: Moderate soft tissue swelling is present around ankle joint. Normal visualized distal tibia and fibula. Normal medial and lateral malleoli. Normal tibiotalar articulation and ankle mortise. Normal visualized talus and calcaneus. The visualized subtalar, talonavicular, calcaneocuboid and tarsal articulations are normal. No visualized fracture. RAD/Ankle min 3 Views IMPRESSION: 1. Moderate soft tissue swelling Electronically Signed: Elver Franz MD at 17:35 EDT , Service support ,
--- NOTE | 2020-12-21 17:04 | US_ITS ---
STUDY: VENOUS DOPPLER ULTRASOUND - LEFT LOWER EXTREMITY REASON FOR EXAM: Male, 65 years old. undefined -- SWELLING TECHNIQUE: Ultrasound evaluation of the deep vein system to include jacobson-scale imaging and compression was performed. Jacobson-scale imaging and Doppler sonographic evaluation, including duplex spectral analysis and qualitative color flow sonography, was performed. COMPARISON: None. FINDINGS: Common Femoral Vein: Normal compression, spontaneity and augmentation. Normal color Doppler. Common Femoral Vein/Greater Saphenous Junction: Normal compression, spontaneity and augmentation. Normal color Doppler. Deep Femoral Vein: Normal compression, spontaneity and augmentation. Normal color Doppler. Femoral Proximal: Normal compression, spontaneity and augmentation. Normal color Doppler. Femoral Middle: Normal compression, spontaneity and augmentation. Normal color Doppler. Femoral Distal: Normal compression, spontaneity and augmentation. Normal color Doppler. Popliteal Vein: Normal compression, spontaneity and augmentation. Normal color Doppler. Posterior Tibial Vein: Normal compression, spontaneity and augmentation. Normal color Doppler. Peroneal Vein: Normal compression, spontaneity and augmentation. Normal color Doppler. 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 The greater saphenous vein is also noncompressible and lacks vascular flow. The right common femoral vein was evaluated and is normal. US/Venous Duplex Imag/Limited/Uni IMPRESSION: 1. 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 The greater saphenous vein is also noncompressible and lacks vascular flow. 2. No demonstrated deep venous thrombosis of the left lower extremity. Electronically Signed: Elver Franz MD at 18:45 EDT , Service support ,
[2020-12-21 18:16] VITALS: BP 118/62; PULSE 57; RESP 14; O2SAT 98
== END 2020-12-21 18:17 | disposition home or self-care (01) ==
PROVIDERS: Emergency Provider Emergency Medicine; PCP Family Medicine
DX: R60.0 Localized edema (principal); M25.472 Effusion, left ankle; G89.29 Other chronic pain; E11.9 Type 2 diabetes mellitus without complications; I10 Essential (primary) hypertension; M50.20 Other cervical disc displacement, unspecified cervical region; H91.93 Unspecified hearing loss, bilateral; G47.30 Sleep apnea, unspecified; Z79.4 Long term (current) use of insulin; Z79.01 Long term (current) use of anticoagulants; Z79.899 Other long term (current) drug therapy
CPT/HCPCS: 73610; 93971; 99282

== ENCOUNTER → 2020-12-28 12:12 | Outpatient (CLI) | payer OTHER, SELFPAY ==
[2020-12-21 15:48] VITALS: BMI 30.5
--- NOTE | 2020-12-28 12:14 | RAD_ITS ---
STUDY: X-RAY CHEST REASON FOR EXAM: Male, 65 years old. Fever and cough TECHNIQUE: PA and 2 lateral views of the chest. COMPARISON: 12/18/2020 FINDINGS: There are interstitial changes of the lungs. There is no demonstrated pleural abnormality. Normal size heart. Normal mediastinum and karl. Normal visualized pulmonary arteries. Normal visualized aortic arch and descending thoracic aorta. Normal visualized thoracic spine. Normal visualized ribs, clavicles, and shoulders. There is no demonstrated abnormality of the visualized soft tissue structures of the upper abdomen. RAD/Chest PA and Lateral IMPRESSION: Chronic interstitial changes, no superimposed acute pulmonary process Electronically Signed: Christiano Abreu MD at 12:29 EDT , Service support ,
== END ==
PROVIDERS: PCP Family Medicine; Referring Provider Family Medicine; Visit Provider Family Medicine
DX: J18.9 Pneumonia, unspecified organism (principal)
CPT/HCPCS: 71046

== ENCOUNTER → 2021-03-05 10:21 | Outpatient (CLI) | payer OTHER, SELFPAY ==
[2021-01-25 14:56] VITALS: BMI 30.5
[2021-03-05 13:12] LABS: ALB/GLOB Ratio 0.8 RATIO (0.9-2.4); AST(SGOT) 34 U/L (15-37); Alanine Aminotransfer ALT/SGPT 39 U/L (16-61); Albumin, Serum 3.6 g/dL (3.2-5.0); Alkaline Phosphatase 84 U/L (45-117); Anion Gap 7 (5-15); BUN 16 mg/dL (7-18); BUN/Creat Ratio 8.4 RATIO (10-20); Calcium,Total 8.9 mg/dL (8.5-10.1); Chloride 103 mmol/L (98-107); Creatinine, Serum 1.91 mg/dL (0.70-1.30); EST Glomerular Filtration Rate 38 mL/min (>60); Est Glom Filt Rate - Afr Amer 45 mL/min (>60); Ferritin 13 ng/mL (26-388); Globulin 4.7 g/dL (2.2-4.2); Glucose 123 mg/dL (74-106); Iron 42 ug/dL (65-175); Potassium 4.2 mmol/L (3.5-5.1); Protein, Total 8.3 g/dL (6.4-8.2); Sodium Level 136 mmol/L (136-145)
[2021-03-05 15:07] LABS: Absolute Lymphocyte Count 1.05 X10^3/uL (0.83-4.51); Absolute Neutrophil Count 3.7 X10^3/uL (2.0-7.7); Basophil# 0.05 X10^3/uL; Basophil% 0.9 % (0-1); Eosinophil# 0.16 X10^3/uL; Eosinophils% 2.9 % (0-5); Hemoglobin 16.3 g/dL (13.0-16.5); Lymphocyte # 1.05 X10^3/ul (0.83-4.51); Lymphocyte % 19.1 % (19-41); Mean Corpuscular Hgb 28.2 pg (27.0-32.0); Mean Corpuscular Volume 88.1 fL (80-94); Mean Platelet Vol. 11.2 fl (6.2-12.0); Monocyte# 0.52 X10^3/uL; Monocyte% 9.4 % (0-10); NRBC Flagged by Analyzer 0 % (0-5); Neutrophil # 3.71 X10^3/uL (2.7-7.7); Neutrophil % 67.3 % (47-70); Platelet Count 307 K/mm3 (150-450); RBC Distribution Width CV 14.2 % (11.6-14.6); RBC Distribution Width SD 45.4 fl (35.1-43.9); Red Blood Count 5.79 M/mm3 (4.6-6.2); White Blood Count 5.5 K/mm3 (4.4-11.0)
[2021-03-06 09:51] LABS: Vitamin B12 >2000 pg/mL (232-1245)
== END ==
PROVIDERS: PCP Family Medicine; Referring Provider Family Medicine; Visit Provider Family Medicine
DX: E11.65 Type 2 diabetes mellitus with hyperglycemia (principal); I10 Essential (primary) hypertension; R17 Unspecified jaundice
CPT/HCPCS: 36415; 80053; 82607; 82728; 83540; 85025

== ENCOUNTER → 2021-04-11 10:15 | Outpatient (CLI) | payer OTHER, SELFPAY ==
[2021-04-11 11:00] LABS: Protein, Urine (Random) 8.7 mg/dL (<11.9); Protein:Creat Ratio 256 mg/g CRE (0-200)
[2021-04-11 11:26] LABS: Anion Gap 7 (5-15); BUN 24 mg/dL (7-18); Calcium,Total 8.9 mg/dL (8.5-10.1); Chloride 103 mmol/L (98-107); Creatinine, Serum 2.18 mg/dL (0.70-1.30); EST Glomerular Filtration Rate 32 mL/min (>60); Est Glom Filt Rate - Afr Amer 39 mL/min (>60); Glucose 224 mg/dL (74-106); Potassium 4.8 mmol/L (3.5-5.1); Sodium Level 137 mmol/L (136-145)
== END ==
PROVIDERS: PCP Family Medicine; Referring Provider Internal Medicine Nephrology; Visit Provider Internal Medicine Nephrology
DX: N18.32 Chronic kidney disease, stage 3b (principal)
CPT/HCPCS: 36415; 80048; 82570; 84156

== ENCOUNTER 2021-05-09 20:03 | Inpatient (IN) | payer OTHER, MEDICARE, SELFPAY ==
[2021-05-09 20:04] VITALS: BP 221/76; PULSE 87; RESP 16; TEMP 36.6; O2SAT 95; BMI 31.5
--- NOTE | 2021-05-09 21:12 | CT_ITS ---
STUDY: CT CHEST, ABDOMEN T PELVIS WITHOUT CONTRAST REASON FOR EXAM: Male, 66 years old. abdominal distension, dyspnea, anasarca RADIATION DOSAGE (If Supplied By Facility): CTDIvol = ( 25.40 ) mGy, DLP = ( 2414.86 ) mGycm TECHNIQUE: Transaxial imaging was performed without the administration of intravenous contrast material. Individualized dose optimization techniques were used for this CT. COMPARISON: No relevant priors. FINDINGS: CHEST Lungs are adequately inflated with diffuse interstitial edema throughout with small bilateral consolidation and effusions. Likely mild CHF. Normal heart and pericardium. Normal mediastinum. Normal hilar regions. Normal unenhanced pulmonary arteries. Normal aorta arch and descending thoracic aorta. There are multi-level degenerative changes of the thoracic spine. There is no demonstrated abnormality of the visualized upper abdomen. ABDOMEN The visualized lung bases are unremarkable. The visualized portions of the heart are within normal limits. Normal liver. Questionable wall thickening and edema with pericholecystic inflammation of the gallbladder. No evidence of stones on CT. Normal spleen. There is diffuse atrophy of the pancreas. Normal bilateral adrenal glands. Normal right kidney. Normal left kidney. Normal visualized stomach. Normal small intestine. There are multiple colonic diverticula consistent with diverticulosis. Fecal retention throughout the colon suggesting constipation. Appendix is not clearly visualized. There is some nonspecific inflammation and edema in the right lower quadrant region however, no abnormal appendix is noted. Normal abdominal aorta. Normal inferior vena cava. Normal retroperitoneum. Normal abdominal wall. There are diffuse degenerative changes of the visualized lumbar spine. PELVIS Normal urinary bladder. Normal visualized small intestine. Colonic diverticulosis There is no pelvic fluid. There is no pelvic lymphadenopathy or mass lesion. Normal visualized pelvic arteries. Normal abdominal wall. Normal osseous structures. CT/CT Chest, Abd, Pelvis WO Cont IMPRESSION: 1. Pulmonary edema with bibasilar airspace disease and small effusions. Likely CHF. 2. Abnormal appearance of the gallbladder with some wall thickening and pericholecystic fluid. No evidence of stones. Recommend right upper quadrant ultrasound to further evaluate for acute colitis 3. Nonvisualized appendix. No secondary signs of acute appendicitis however, very subtle and nonspecific inflammation and edema in the right lower quadrant region 4. Fecal retention throughout the colon suggesting constipation Electronically Signed: Cem Rivera DO at 2:15 EDT Tel , Service support ,
--- NOTE | 2021-05-09 21:13 | EKG12_ITS ---
Test Reason : EDEMA Blood Pressure : / mmHG Vent. Rate : 073 BPM Atrial Rate : 073 BPM P-R Int : 188 ms QRS Dur : 106 ms QT Int : 358 ms P-R-T Axes : 056 021 080 degrees QTc Int : 394 ms Normal sinus rhythm Nonspecific T wave abnormality Abnormal ECG Confirmed by JAJA BAUTISTA, ELFEGO ([id number]), school photograph editor IHSAN FERGUSON ([id number]) on 05/13/2021 8:05:16 AM Referred By: SKYE Confirmed By:ELFEGO WILKINSON MD
[2021-05-09 22:17] VITALS: PULSE 70; RESP 17; O2SAT 95
[2021-05-09 22:18] VITALS: BP 177/78
[2021-05-09 22:23] LABS: Absolute Lymphocyte Count 1.07 X10^3/uL (0.83-4.51); Absolute Neutrophil Count 4.6 X10^3/uL (2.0-7.7); Basophil# 0.06 X10^3/uL; Basophil% 0.9 % (0-1); Eosinophil# 0.14 X10^3/uL; Eosinophils% 2.1 % (0-5); Hematocrit 48.4 % (40-54); Hemoglobin 15.8 g/dL (13.0-16.5); Lymphocyte # 1.07 X10^3/ul (0.83-4.51); Mean Corp Hgb Conc 32.6 g/dL (32-36); Mean Corpuscular Hgb 29.2 pg (27.0-32.0); Mean Corpuscular Volume 89.5 fL (80-94); Mean Platelet Vol. 11.1 fl (6.2-12.0); Monocyte# 0.74 X10^3/uL; Monocyte% 11.1 % (0-10); NRBC Flagged by Analyzer 0 % (0-5); Neutrophil # 4.63 X10^3/uL (2.7-7.7); Neutrophil % 69.3 % (47-70); POSITIVE MORPHOLOGY YES; Platelet Count 232 K/mm3 (150-450); RBC Distribution Width CV 20.1 % (11.6-14.6); RBC Distribution Width SD 64.4 fl (35.1-43.9); Red Blood Count 5.41 M/mm3 (4.6-6.2); White Blood Count 6.7 K/mm3 (4.4-11.0)
[2021-05-09 22:30] LABS: Differential Indicated SCAN CRITERIA MET
--- NOTE | 2021-05-09 22:32 | EDS_ITS ---
HPI History of Present Illness Chief Complaint: Edema Informant: patient and spouse/S.O. Narrative Narrative: Patient presents here with significant other increasing swelling dyspnea over the past 3 days. States swelling in his legs abdomen and upper extremities per spouse stating seems swelling the face. He chronically sleeps in a recliner, denies any CHF history. He states he is noted increased dyspnea due to the swelling. He denies history of liver disease. History of hypertension and diabetes, reporting he has chronic pain all over with the pain pump since 2013. He is followed by pain management in [place]. Denies any cancer history. Has had colonoscopies in the past that are negative. Denies fever. Denies cough. Denies urinary symptoms. Denies any changes in bowel habits. Denies any previous similar symptoms in the past. Prior similar symptoms: No PFSH PFSH Medical History Alcohol use Cancer Chronic pain Diabetes Edema Hearing loss, left Hearing loss, right HNP (herniated nucleus pulposus), cervical Hypertension Injury of head and neck Kidney disease Kidney disease Non-smoker Presence of intrathecal pump Sleep apnea Wears glasses Home Medications metformin 1,000 mg PO DINNER 06/12/15 [History Last Taken 12/16/20] omega-3 fatty acids-fish oil 4 ea PO QHS 06/12/15 [History Last Taken 12/14/20] pregabalin 100 mg PO TID 04/11/17 [History Last Taken 12/16/20] Pain Pump (Pt's Own) 1.1993 mg SUBCUT CONT 03/03/18 [History Last Taken 12/16/20] amlodipine 7.5 mg PO DAILY 03/03/18 [History Last Taken 12/16/20] lisinopril 30 mg tablet 30 mg PO DAILY 12/23/19 [History Last Taken 12/16/20] Cbd Oil 1 dose PO/SL QHS 12/07/20 [History Last Taken 12/15/20] insulin detemir U-100 55 unit SUBCUT QHS 12/07/20 [History Last Taken 12/16/20] Testrome 1 applic MISCELLANEOUS DAILY 12/16/20 [History Last Taken 12/16/20] tizanidine 4 mg tablet 6 mg PO .four times daily tab 04/19/21 [History Last Taken Unknown] Allergy/AdvReac Type Severity Reaction Status Date / Time pollen extracts Allergy Itching Verified 05/09/21 20:06 Tzseoni-Ydg-Ltu Reductase AdvReac Pain in Verified 05/09/21 20:06 Inhibitor joints Family History Mother Cancer Father Heart disease Surgical History History of colonoscopy S/P cervical spinal fusion Status post insertion of intrathecal pump Social History Smoking Status: Never smoker ROS ROS ED Constitutional Constitutional ED: Denies chills, fever(s) or sweats Eyes Eyes: Denies change in vision ENT ENT ED: Denies dysphagia or sore throat Cardiovascular Cardiovascular: Denies chest pain, leg edema, palpitations or racing heartbeat Respiratory/Chest Respiratory/Chest: Reports dyspnea; Denies cough or dyspnea on exertion Gastrointestinal Gastrointestinal: Reports other Details: Abdominal distention ; Denies abdominal pain, diarrhea, nausea or vomiting Genitourinary Genitourinary ED: Denies dysuria, hematuria or urinary frequency Musculoskeletal Musculoskeletal: Denies back pain, extremity pain or neck pain Integumentary Denies rash or wounds Neurologic Neurologic: Denies headache(s), paresthesias or weakness EXAM Physical Exam Const Vital Signs: 05/09/21 20:04 05/09/21 22:17 05/09/21 22:18 Temperature 98 F Temperature Source Temporal Pulse Rate 87 70 Respiratory Rate 16 17 Blood Pressure 221/76 H 177/78 H Blood Pressure Mean 124 111 Pulse Ox 95 95 Oxygen Delivery Method Room Air Room Air Positive well nourished and well developed General Appearance ED: well developed and NAD HEENT Reports moist mucous membranes normocephalic and atraumatic Eyes PERRL, EOMs intact bilaterally and conjunctivae normal General Eye ED: Yes normal appearance of both eyes Neck no lymphadenopathy and supple General: Negative for tenderness Chest Wall Chest: Negative for tenderness Resp normal respiratory effort and normal air movement Effort and Inspection: symmetric chest movement; Negative for respiratory distress Cardio regular rate, regular rhythm and no murmurs Peripheral Pulses: pulses 2+ throughout GI non-tender Inspection: abdominal distention Palpation: Negative for guarding or rebound tenderness present Back/Spine no CVA tenderness and no thoracic nor lumbar tenderness Extremity Extremity Narrative: 2+ lower extremity edema pitting, right upper extremity edema. Pulses intact x4. General Extremety ED: Yes edema; Negative for tenderness General Extremity: edema Neuro oriented x3 and no sensory deficits noted Sensorium / Orientation: awake and alert Skin no rashes or lesions noted and no wounds MDM MDM MDM Narrative Medical decision making narrative: Patient EKG is normal. Initial blood pressure on arrival was 221/76 recheck 177/78. Patient apparently having anasarca with abdominal distention leg swelling lateral pain and swelling. Pulse ox 95%. Laboratory studies will be obtained, will check CT chest abdomen pelvis for further evaluation. Prior to CT with contrast been ordered, received a call from CT department note his GFR is 12. He was sent to CT without contrast. Reviewing his labs noted creatinine today of 5.2 BUN 51, creatinine was 2.18 28 days ago GFR 32. Reviewing the CT scan bladder looks normal in size without distention for concerns for postobstructive process. Patient reports he has been urinating normally. Potassium 6.6, reported moderate hemolyzed. With his AUBREY suspect this still will be elevated. Ordered for insulin glucose and aerosol treatm ents. Recheck potassium drawn. BUN normal troponin normal. I discussed with hospitalist, Dr. Antony, request additional MiraLAX and Kayexalate, this was ordered per his request. In addition I did speak with his cardiac care unit nurse Dr. Mosley who will see him tomorrow morning. Lab Data Attestation: I reviewed the patient's lab results. Labs: Laboratory Results - last 24 hr 05/09/21 05/09/21 05/09/21 22:13 22:13 22:13 WBC 6.7 RBC 5.41 Hgb 15.8 Hct 48.4 MCV 89.5 MCH 29.2 MCHC 32.6 RDW Std Deviation 64.4 H RDW Coeff of Vick 20.1 H Plt Count 232 MPV 11.1 Immature Gran % (Auto) 0.600 Neut % (Auto) 69.3 Lymph % (Auto) 16.0 L [place] % (Auto) 11.1 H Eos % (Auto) 2.1 Baso % (Auto) 0.9 Absolute Neuts (auto) 4.6 Absolute Lymphs (auto) 1.07 Nucleated RBC % 0 Differential Comment SCANNED Anisocytosis 1+ Sodium 135 L Potassium 6.6 H* Chloride 107 Carbon Dioxide 22.0 Anion Gap 6 BUN 51 H Creatinine 5.20 H Estim Creat Clear Calc 14.23 Est GFR (MDRD) Af Amer 14 L Est GFR (MDRD) Non-Af 12 L BUN/Creatinine Ratio 9.8 L Glucose 162 H Calcium 8.4 L Total Bilirubin 0.70 AST 33 ALT 30 Alkaline Phosphatase 69 Troponin I High Sens 18 B-Natriuretic Peptide 95.5 Total Protein 7.8 Albumin 2.8 L Globulin 5.0 H Albumin/Globulin Ratio 0.6 L EKG Initial EKG: Attestation: I personally reviewed and interpreted this EKG as follows: Comments: Sinus rate of 73, no ST or T wave changes. Discharge Plan Dx/Rx/DC Orders Clinical Impression: AUBREY (acute kidney injury), Hypertension, Acute hyperkalemia, Nephropathy, Anasarca associated with disorder of kidney Disposition Disposition: Acute Care [facility]
[2021-05-09 22:56] LABS: ALB/GLOB Ratio 0.6 RATIO (0.9-2.4); AST(SGOT) 33 U/L (15-37); Alanine Aminotransfer ALT/SGPT 30 U/L (16-61); Albumin, Serum 2.8 g/dL (3.2-5.0); Alkaline Phosphatase 69 U/L (45-117); Anion Gap 6 (5-15); BUN 51 mg/dL (7-18); BUN/Creat Ratio 9.8 RATIO (10-20); Calcium,Total 8.4 mg/dL (8.5-10.1); Chloride 107 mmol/L (98-107); EST Glomerular Filtration Rate 12 mL/min (>60); Est Glom Filt Rate - Afr Amer 14 mL/min (>60); Estimated Creatinine Clearance 14.23 ml/min; Glucose 162 mg/dL (74-106); Potassium 6.6 mmol/L (3.5-5.1); Protein, Total 7.8 g/dL (6.4-8.2); Sodium Level 135 mmol/L (136-145); Troponin-I HS 18 pg/mL (3.0-78.0)
[2021-05-09 22:58] LABS: Anisocytosis 1+; Differential Comment SCANNED
[2021-05-09 23:12] LABS: BNP,B-Type NATRIURETIC PEPTIDE 95.5 pg/mL (0-100)
[2021-05-10] VITALS (15 sets, daily range): BP systolic 164–208; BP diastolic 69–88; PULSE 54–100; RESP 16–24; TEMP 36.6–37.1; O2SAT 65–98; BMI 33.7
[2021-05-10 00:14] LABS: Potassium 5.4 mmol/L (3.5-5.1)
--- NOTE | 2021-05-10 00:30 | PCM.HP.STD ---
Documented by User: KELSI Barahona 05/10/21 00:53 HPI - General General Date of Admission: 05/09/21 Date of Service: 05/10/21 Chief Complaint: Increased swelling, dyspnea HPI Narrative PAOLA LOPEZ, is a 66 M who presents increased swelling over the past 3 days along with dyspnea. Patient states that the swelling in his legs is normal for him however his abdomen and upper extremities as well as his face are also much more swollen than normal. Patient states his lower extremity swelling as a result of his pain pump being placed in 2013. Patient denies fever, chills, chest pain, cough, nausea, vomiting, abdominal pain. Patient denies any recent medication changes or initiation of new supplements. [facility] Medical History Alcohol use Cancer Chronic pain Diabetes Edema Hearing loss, left Hearing loss, right HNP (herniated nucleus pulposus), cervical Hypertension Injury of head and neck Kidney disease Kidney disease Non-smoker Presence of intrathecal pump Sleep apnea Wears glasses Home Medications metformin 1,000 mg PO DINNER 06/12/15 [History Last Taken 05/09/21 1000 mg] omega-3 fatty acids-fish oil 4 ea PO QHS 06/12/15 [History Last Taken 12/14/20] pregabalin 100 mg PO TID 04/11/17 [History Last Taken 05/09/21 100 mg] Pain Pump (Pt's Own) 1.1993 mg SUBCUT CONT 03/03/18 [History Last Taken 12/16/20] amlodipine 7.5 mg PO DAILY 03/03/18 [History Last Taken 05/09/21 7.5] lisinopril 30 mg tablet 30 mg PO DAILY 12/23/19 [History Last Taken 05/09/21 30 mg] Cbd Oil 1 dose PO/SL QHS 12/07/20 [History Last Taken 05/09/21] insulin detemir U-100 55 unit SUBCUT QHS 12/07/20 [History Last Taken 05/09/21 55 u] Testrome 1 applic MISCELLANEOUS DAILY 12/16/20 [History Last Taken 05/09/21] tizanidine 4 mg tablet 6 mg PO .four times daily tab 04/19/21 [History Last Taken 05/09/21 6 mg] Allergy/AdvReac Type Severity Reaction Status Date / Time pollen extracts Allergy Itching Verified 05/09/21 20:06 [id number]-Zcs Reductase AdvReac Pain in Verified 05/09/21 20:06 Inhibitor joints Family History Mother Cancer Father Heart disease Surgical History History of colonoscopy S/P cervical spinal fusion Status post insertion of intrathecal pump Social History Smoking Status: Never smoker ROS Constitutional Constitutional: Reports weight gain; Denies anorexia, chills, fatigue, fever(s), malaise or weakness Cardiovascular Cardiovascular: Reports edema; Denies chest pain, palpitations or syncope Respiratory/Chest Respiratory/Chest: Reports dyspnea on exertion; Denies cough, shortness of breath at rest, tachypnea or wheezing Gastrointestinal Gastrointestinal: Reports bloating; Denies abdominal pain, constipation, diarrhea, nausea or vomiting Genitourinary Genitourinary: Denies dysuria Musculoskeletal Musculoskeletal: Denies back pain, extremity pain, joint pain or joint stiffness Integumentary Integumentary: Denies dry skin Neurologic Neurologic: Denies abnormal gait, abnormal speech, confusion or dizziness Psychiatric Psychiatric: Denies anxiety or depression Hematologic/Lymphatic Hematologic/Lymphatic: Denies anemia, easy bleeding or easy bruising Vital Signs Vital Signs Vital Signs: 05/09/21 20:04 05/09/21 22:17 05/09/21 22:18 Temperature 98 F Temperature Source Temporal Pulse Rate 87 70 Respiratory Rate 16 17 Blood Pressure 221/76 H 177/78 H Blood Pressure Mean 124 111 Pulse Ox 95 95 Oxygen Delivery Method Room Air Room Air Weight Weight: 220 lb Body Mass Index (BMI) 31.5 Physical Exam Const alert, oriented x3 and no apparent distress General Appearance: cooperative HEENT normocephalic and head/scalp atraumatic Eyes conjunctivae normal and no scleral icterus Neck Neck Narrative: Swollen fluctuant area noted to left lateral neck tender with palpation General: trachea midline Resp normal respiratory effort, normal air movement and clear to auscultation bilaterally Cardio regular rate, regular rhythm, S1 normal heart sound, S2 normal heart sound and peripheral pulses 2+ throughout GI non-tender Inspection: abdominal distention Auscultation: normoactive bowel sounds Extremity normal capillary refill General Extremity: edema bilateral upper extremity and lower extremity Details: moderate Skin General Skin Exam: no breakdown and turgor normal Lesions: no lesions Rashes: no rashes Neuro no focal motor deficits and no sensory deficits noted Speech: speech normal Motor Exam: Negative for general weakness Psych thought process normal, cooperative and affect normal Appearance: appropriate Results Lab / Micro Data Result Diagrams: 05/09/21 22:13 05/09/21 23:58 Labs: Laboratory Results - last 24 hr 05/09/21 22:13: WBC 6.7, RBC 5.41, Hgb 15.8, Hct 48.4, MCV 89.5, MCH 29.2, MCHC 32.6, RDW Std Deviation 64.4 H, RDW Coeff of Vick 20.1 H, Plt Count 232, MPV 11.1, Immature Gran % (Auto) 0.600, Neut % (Auto) 69.3, Lymph % (Auto) 16.0 L, [place] % (Auto) 11.1 H, Eos % (Auto) 2.1, Baso % (Auto) 0.9, Absolute Neuts (auto) 4.6, Absolute Lymphs (auto) 1.07, Nucleated RBC % 0, Differential Comment SCANNED, Anisocytosis 1+ 05/09/21 22:13: Sodium 135 L, Potassium 6.6 H*, Chloride 107, Carbon Dioxide 22.0, Anion Gap 6, BUN 51 H, Creatinine 5.20 H, Estim Creat Clear Calc 14.23, Est GFR (MDRD) Af Amer 14 L, Est GFR (MDRD) Non-Af 12 L, BUN/Creatinine Ratio 9.8 L, Glucose 162 H, Calcium 8.4 L, Total Bilirubin 0.70, AST 33, ALT 30, Alkaline Phosphatase 69, Troponin I High Sens 18, Total Protein 7.8, Albumin 2.8 L, Globulin 5.0 H, Albumin/Globulin Ratio 0.6 L 05/09/21 22:13: B-Natriuretic Peptide 95.5 05/09/21 23:58: Potassium 5.4 H Micro: Microbiology 05/09/21 23:34 Nasal Secretion SARS-CoV-2 Antigen (Rapid) - Final Assessment & Plan Assessment/Plan (1) AUBREY (acute kidney injury): (2) Acute hyperkalemia: (3) Anasarca associated with disorder of kidney: PLAN: 1. Acute on chronic kidney disease stage IIIb -Admit to PCU for cardiac monitoring -Consult nephrology, case discussed with Dr. Geronimo by ER physician -Kidney and bladder ultrasound ordered -Serum osmolality, urine osmolality and urine sodium ordered -CBC, BMP, mag, Phos, TSH ordered for a.m. -Daily weights -Strict intake and output -PT and OT to eval and treat -Vital signs per protocol -Oxygen per protocol -Tizanidine and Lyrica dosing decreased from baseline dosing due to AUBREY 2. Hyperkalemia -Initial value 6.6 patient received D50, insulin, MiraLAX, Kayexalate in ER -Repeat value 5.4 -CMP ordered for a.m. -Likely secondary to kidney dysfunction 3. Anasarca -Possibly secondary to acute on chronic kidney disease -Echocardiogram ordered 4. Left lateral neck edema -Localized fluctuant area noted to left lateral neck -Ultrasound ordered 5. Diabetes mellitus type 2 -Hold Metformin due to AUBREY -AC at bedtime blood sugars with sliding scale insulin ordered -Continue home Lantus dosing 6. Hypertension -VS per protocol -Continue amlodipine -Hold lisinopril d/t AUBREY DVT prophylaxis-subcu Lovenox This patient was seen by KELSI Barahona under the supervision of Dr. Antony. Documented by User: Dr. Dedrick Antony MD 05/10/21 04:11 HPI - General General Date of Admission: 05/09/21 [facility] Medical History Alcohol use Cancer Chronic pain Diabetes Edema Hearing loss, left Hearing loss, right HNP (herniated nucleus pulposus), cervical Hypertension Injury of head and neck Kidney disease Kidney disease Non-smoker Presence of intrathecal pump Sleep apnea Wears glasses Home Medications metformin 1,000 mg PO DINNER 06/12/15 [History Last Taken 05/09/21 1000 mg] omega-3 fatty acids-fish oil 4 ea PO QHS 06/12/15 [History Last Taken 12/14/20] pregabalin 100 mg PO TID 04/11/17 [History Last Taken 05/09/21 100 mg] Pain Pump (Pt's Own) 1.1993 mg SUBCUT CONT 03/03/18 [History Last Taken 12/16/20] amlodipine 7.5 mg PO DAILY 03/03/18 [History Last Taken 05/09/21 7.5] lisinopril 30 mg tablet 30 mg PO DAILY 12/23/19 [History Last Taken 05/09/21 30 mg] Cbd Oil 1 dose PO/SL QHS 12/07/20 [History Last Taken 05/09/21] insulin detemir U-100 55 unit SUBCUT QHS 12/07/20 [History Last Taken 05/09/21 55 u] Testrome 1 applic MISCELLANEOUS DAILY 12/16/20 [History Last Taken 05/09/21] tizanidine 4 mg tablet 6 mg PO .four times daily tab 04/19/21 [History Last Taken 05/09/21 6 mg] Allergy/AdvReac Type Severity Reaction Status Date / Time pollen extracts Allergy Itching Verified 05/09/21 20:06 [id number]-Sup-Fwu Reductase AdvReac Pain in Verified 05/09/21 20:06 Inhibitor joints Family History Mother Cancer Father Heart disease Surgical History History of colonoscopy S/P cervical spinal fusion Status post insertion of intrathecal pump Social History Smoking Status: Never smoker Results Lab / Micro Data Result Diagrams: 05/09/21 22:13 05/09/21 23:58 Charges/Coding Addendum Addendum: Patient was seen and examined independently. I agree with assessment and plan by Kerrie Saunders NP-Courtney In summary patient is a 69-year-old male with a significant history of diabetes mellitus hypertension and chronic pain who presents emergency department with 2 to 3 days of increased swelling. At baseline patient has swelling of his bilateral legs from his knee down. However he reports swelling above his knees. He reports increased distention of his belly. Further his reports swelling of his face. Also he has a swelling on the left side of his clavicular area. Also patient has shortness of breath and some wheezes. Physical exam: General: Well-nourished, well-developed. Head: Normocephalic, atraumatic, no tenderness Eyes: PERRLA, EOMI ENT, no trauma, moist mucous membranes, no rhinorrhea Neck: Nontender, full range of motion, no spinal tenderness, deformities, step-off CVS: Regular rate and rhythm. S1-S2 present. No murmur, gallop or rub. Respiratory : Diminished with mild wheezes Abdomen: Distended belly. Bowel sounds present : Deferred Back: Nontender, no CVA tenderness, no midline spinal tenderness, deformities, step-offs Extremities: Bilateral lower extremity edema. Skin: Swelling at left clavicular area. Normal color, no trauma, no abrasions Neuro: Alert, oriented, cranial nerves II through XII grossly intact. Psychiatry: Anxious and depressed. Anasarca and AUBREY over CKD CT chest abdomen pelvis with pulmonary edema with bibasilar airspace disease and small effusion likely CHF. CT with questionable wall thickening and edema with pericholecystic inflammation of the gallbladder. Patient has no fever or leukocytosis. Review of BMP showed creatinine of 5.2 on presentation. His baseline creatinine is around 2 Give a trial of Lasix. Fluid restriction. Trend BMP. Avoid nephrotoxins. Lisinopril held. Pregabalin dose adjusted. Get echocardiogram Nephrology consult Hyperkalemia Initial potassium of 6.6 which may be moderately hemolyzed. EKG unremarkable. Received albuterol nebulization 10 mg; insulin IV; Kayexalate and MiraLAX at the ED. Repeat potassium was ordered but even before repeat potassium will results above treatment was done. Emergent department doctor discussed the case with nephrology who will follow. Nephrology consult. Repeat potassium 5.4. Initial 6.6 potassium may be spurious. Swelling of left clavicular area Ultrasound ordered. Diabetes mellitus Patient with hyperglycemia on presentation Metformin held. Adjust basal insulin. Accu-Chek QA CHS with correction scale insulin ordered. Hypertension Blood pressure is not within goal Lisinopril held secondary to AUBREY. Lasix ordered for anasarca. Hydralazine as needed ordered. Trend blood pressure and adjust blood pressure medications. Chronic pain Patient will bump with pain pump. Tizanidine continued. Adjusted for creatinine clearance. Visit Charges Inpatient E&M: 61727 Init Hosp L3
[2021-05-10] MEDS: Insulin Lispro 10 UNIT in Syringe 0 ML 6 UNIT IV (00:43)
[2021-05-10] MEDS: Dextrose 50%-Water 25 GM/50 ML DISP.SYRIN IV (00:46)
[2021-05-10] MEDS: Sodium Polystyrene Sulfonate 15 GM/60 ML UDC 30 GM PO (00:46)
[2021-05-10] MEDS: Polyethylene Glycol 3350 17 GM PACKET 34 GM PO (00:50)
--- NOTE | 2021-05-10 02:00 | US_ITS ---
STUDY: THYROID ULTRASOUND REASON FOR EXAM: Male, 66 years old. tender swollen area to left neck TECHNIQUE: Ultrasound evaluation of the thyroid was performed with real-time and static martínez-scale imaging. COMPARISON: None. FINDINGS: Multiple longitudinal and transverse ultrasound images of the left supraclavicular area demonstrate a 1.2 cm oval hypoechoic mass is central increased echogenicity most consistent with a normal lymph node. US/Head/Neck Soft Tissue IMPRESSION: Normal ultrasound examination of the soft tissue neck. Electronically Signed: Harjinder Adamson MD at 10:18 EDT Tel , Service support ,
--- NOTE | 2021-05-10 02:00 | ECHOCS_ITS ---
Procedure This was a 2D Doppler, Color Flow transthoracic echocardiogram. The study was technically difficult. Due to body habitus. Contrast injection was performed. Exam performed portable in patient room. Left Ventricle Mild concentric left ventricular hypertrophy. The estimated ejection fraction is EF 55-60 %. Right Ventricle Normal right ventricle. Normal systolic function. Atria The left atrium is mildly enlarged. Normal right atrium. Mitral Valve The mitral valve is structurally normal. No prolapse or stenosis seen. Trivial mitral valve insufficiency. Tricuspid Valve Normal tricuspid valve. Trivial tricuspid valve insufficiency. Aortic Valve Normal aortic valve. Pulmonic Valve The pulmonic valve is not well visualized. Great Vessels Normal aortic root. Pericardium/Pleural No pericardial effusion. Medication Diluted definity 2.0ml given slow IV push to enhance endocardial definition. MMode/2D Measurements & Calculations LVIDd: 5.0 cm IVSd: 1.4 cm Ao root diam: 3.4 cm LVIDs: 3.2 cm LVPWd: 1.1 cm RVDd: 3.6 cm FS: 36.9 % LAV(MOD-bp): 61.9 ml LA A4 area: 20.1 cm2 LA dimension(2D): 3.7 cm LAV(MOD-bp) Indexed: 27.8 ml/m2 LAV(MOD-sp2): 64.4 ml LAV(MOD-sp4): 61.0 ml Time Measurements MV dec time: 0.14 sec Doppler Measurements & Calculations MV E max gerber: 125.7 cm/sec Lat Peak E' Gerber: 11.0 cm/sec Med Peak E' Gerber: 10.5 cm/sec MV A max gerber: 85.2 cm/sec E/E' lat: 11.5 E/E' med: 12.0 MV E/A: 1.5 Ao V2 max: 160.6 cm/sec LV V1 max: 118.6 cm/sec PA V2 max: 117.0 cm/sec Ao max P.3 mmHg LV V1 max P.6 mmHg ECHO/Echo Complete W/ Contrast Interpretation Summary The estimated ejection fraction is EF 55-60 %. Normal LV systolic function No change from prior echo in 04/11/2017 Ordering Physician: Kerrie Saunders Referring Physician: Stu Cameron M.D. Performed By: Raisa Nolan, JEVON, RVT
[2021-05-10 02:43] LABS: Mucous, Urine 0 SEEN /hpf (<or=2+); Red Blood Cells-Urine 0 SEEN /hpf (0-5); Squamous Epithelial Cells - UA 0 SEEN /hpf (0-5)
[2021-05-10 02:44] LABS: Color, Urine Yellow (Yellow); Glucose, Dipstick Normal (Normal); Ketone-Dipstick Negative (Negative); Leukocyte Esterase-Dipstick Negative /ul (Negative); Nitrite-Dipstick Negative (Negative); Occult Blood-Urine 25 /ul (Negative); Protein-Dipstick 30 mg/dl (Negative); Specific Gravity, Urine 1.015 (1.002-1.030); Urine Bilirubin Dipstick Negative (Negative); Urine Clarity Clear (Clear); Urine Urobilinogen Normal (Normal)
[2021-05-10 02:47] LABS: Urine Sodium 40 mmol/L (Not Establ.)
[2021-05-10 02:59] LABS: Bacteria 1+ /hpf (None Seen); White Blood Cells 0-5 SEEN /hpf (0-5)
[2021-05-10 03:08] LABS: Osmolality, Urine 375 mOsm/KG
[2021-05-10] MEDS: tiZANidine HCl 2 MG Tablet 3 MG PO ×4 (03:42→22:16)
[2021-05-10] MEDS: Senna/Docusate Sodium 1 Tablet 2 TABLET PO ×2 (04:12→10:58)
[2021-05-10] MEDS: 0.9% Saline Lock 10 ML Syringe IV ×3 (04:12→17:58)
[2021-05-10] MEDS: Furosemide 40 MG/4 ML Vial IV (04:12)
[2021-05-10] MEDS: Heparin Injection (Vial) 5,000 UNIT/ML VIAL 5000 UNIT SC ×3 (06:01→21:21)
[2021-05-10 07:05] LABS: Bedside Glucose 130 mg/dL (70-110)
--- NOTE | 2021-05-10 07:23 | PCS.PANDOC ---
PANDEMIC DOCUMENTATION INITIATED: Date: 05/10/2021 Time: 020
[2021-05-10 07:34] LABS: Absolute Lymphocyte Count 0.52 X10^3/uL (0.83-4.51); Absolute Neutrophil Count 6.8 X10^3/uL (2.0-7.7); Basophil# 0.03 X10^3/uL; Basophil% 0.4 % (0-1); Eosinophil# 0.01 X10^3/uL; Eosinophils% 0.1 % (0-5); Hematocrit 45.8 % (40-54); Lymphocyte # 0.52 X10^3/ul (0.83-4.51); Lymphocyte % 6.3 % (19-41); Mean Corp Hgb Conc 32.8 g/dL (32-36); Mean Corpuscular Hgb 29.5 pg (27.0-32.0); Mean Corpuscular Volume 90.2 fL (80-94); Mean Platelet Vol. 10.5 fl (6.2-12.0); Monocyte# 0.84 X10^3/uL; Monocyte% 10.2 % (0-10); NRBC Flagged by Analyzer 0 % (0-5); Neutrophil # 6.83 X10^3/uL (2.7-7.7); Neutrophil % 82.6 % (47-70); POSITIVE DIFFERENTIAL YES; POSITIVE MORPHOLOGY YES; Platelet Count 250 K/mm3 (150-450); RBC Distribution Width CV 20.2 % (11.6-14.6); RBC Distribution Width SD 66.1 fl (35.1-43.9); Red Blood Count 5.08 M/mm3 (4.6-6.2); White Blood Count 8.3 K/mm3 (4.4-11.0)
[2021-05-10 07:39] LABS: Differential Indicated SCAN CRITERIA MET
--- NOTE | 2021-05-10 07:48 | PCM.PN.HOSP ---
Subjective Subjective Patient has increased swelling mainly of upper thigh, abdominal swelling ascites and dyspnea for 3 days along with hyperkalemia prior to admission. Objective Data Objective Data Vital Signs: Vital Signs Temp Pulse Resp BP Pulse Ox 98.7 F 90 18 172/71 H 95 05/10/21 05:55 05/10/21 05:55 05/10/21 05:55 05/10/21 05:55 05/10/21 05:55 Oxygen Delivery Method Room Air Weight: 228 lb 13.437 oz Body Mass Index (BMI) 33.7 Lab / Micro Data Result Diagrams: 05/10/21 07:04 05/10/21 07:04 Labs: Laboratory Results - last 24 hr 05/09/21 22:13: WBC 6.7, RBC 5.41, Hgb 15.8, Hct 48.4, MCV 89.5, MCH 29.2, MCHC 32.6, RDW Std Deviation 64.4 H, RDW Coeff of Vick 20.1 H, Plt Count 232, MPV 11.1, Immature Gran % (Auto) 0.600, Neut % (Auto) 69.3, Lymph % (Auto) 16.0 L, [place] % (Auto) 11.1 H, Eos % (Auto) 2.1, Baso % (Auto) 0.9, Absolute Neuts (auto) 4.6, Absolute Lymphs (auto) 1.07, Nucleated RBC % 0, Differential Comment SCANNED, Anisocytosis 1+ 05/09/21 22:13: Sodium 135 L, Potassium 6.6 H*, Chloride 107, Carbon Dioxide 22.0, Anion Gap 6, BUN 51 H, Creatinine 5.20 H, Estim Creat Clear Calc 14.23, Est GFR (MDRD) Af Amer 14 L, Est GFR (MDRD) Non-Af 12 L, BUN/Creatinine Ratio 9.8 L, Glucose 162 H, Calcium 8.4 L, Total Bilirubin 0.70, AST 33, ALT 30, Alkaline Phosphatase 69, Troponin I High Sens 18, Total Protein 7.8, Albumin 2.8 L, Globulin 5.0 H, Albumin/Globulin Ratio 0.6 L 05/09/21 22:13: B-Natriuretic Peptide 95.5 05/09/21 23:58: Potassium 5.4 H 05/10/21 02:10: Urine Color Yellow, Urine Clarity Clear, Urine pH 5.0, Ur Specific [place] 1.015, Urine Protein 30 H, Urine Glucose (UA) Normal, Urine Ketones Negative, Urine Occult Blood 25 H, Urine Nitrite Negative, Urine Bilirubin Negative, Urine Urobilinogen Normal, Ur Leukocyte Esterase Negative, Urine RBC 0 SEEN, Urine WBC 0-5 SEEN, Ur Squamous Epith Cells 0 SEEN, Urine Bacteria 1+, Urine Mucus 0 SEEN 05/10/21 02:10: Urine Osmolality 375, Ur Random Sodium 40 05/10/21 06:05: POC Glucose 130 H 05/10/21 07:04: WBC 8.3, RBC 5.08, Hgb 15.0, Hct 45.8, MCV 90.2, MCH 29.5, MCHC 32.8, RDW Std Deviation 66.1 H, RDW Coeff of Vick 20.2 H, Plt Count 250, MPV 10.5, Immature Gran % (Auto) 0.400, Neut % (Auto) 82.6 H, Lymph % (Auto) 6.3 L, [place] % (Auto) 10.2 H, Eos % (Auto) 0.1, Baso % (Auto) 0.4, Absolute Neuts (auto) 6.8, Absolute Lymphs (auto) 0.52 L, Nucleated RBC % 0 Micro: Microbiology 05/09/21 23:34 Nasal Secretion SARS-CoV-2 Antigen (Rapid) - Final Radiography Diagnostic Testing: Radiology Impression Chest/Abdomen/Pelvis CT 05/09/21 21:12 IMPRESSION: 1. Pulmonary edema with bibasilar airspace disease and small effusions. Likely CHF. 2. Abnormal appearance of the gallbladder with some wall thickening and pericholecystic fluid. No evidence of stones. Recommend right upper quadrant ultrasound to further evaluate for acute colitis 3. Nonvisualized appendix. No secondary signs of acute appendicitis however, very subtle and nonspecific inflammation and edema in the right lower quadrant region 4. Fecal retention throughout the colon suggesting constipation Electronically Signed: Cem Rivera DO at 2:15 EDT Tel , Service support , Physical Exam Narrative Improvement in swelling of leg and abdomen and arms. General: Alert, Oriented x3, Cooperative HEENT: Atraumatic, PERRLA, EOMI, Normocephalic Oral: No Gingival or Mucosal Lesions/ Ulcerations Neck: Supple, No JVD, Negative Carotid Bruits Lungs: Air entry diminished in bilateral lung bases. Crepitations in lower lungs. Cardiovascular: Regular rate, Regular Rhythm, Normal S1, Normal S2, No murmurs Abdomen: Abdominal distention, bowel Sounds Present, Soft, Non Tender : No renal angle tenderness. No suprapubic tenderness. Extremities: Bilateral thigh edema, Capillary Refill Less than 3 Seconds Skin: No rashes, No breakdown Musculoskeletal: No Tenderness to Palpation of Joints or Extremities Neurological: Cranial nerves II-XII grossly intact, DTR 2+/4 and Symmetrical, Neuro grossly intact Psych/Mental Status: Normal Affect, Appropriate. Assessment & Plan Assessment/Plan (1) AUBREY (acute kidney injury): PLAN: 1. Anasarca and AUBREY over CKD CT chest abdomen pelvis with pulmonary edema with bibasilar airspace disease and small effusion likely CHF. CT with questionable wall thickening and edema with pericholecystic inflammation of the gallbladder. Patient has no fever or leukocytosis. Right upper quadrant sonogram ordered for tomorrow a.m. Discussed with the coin machine collector. Kayexalate given for hyperkalemia. Lisinopril on hold. Pregabalin dosage decreased. Patient not on antidiabetic oral medications. 2D echo shows EF 55 to 60%, mild concentric LVH. Normal RV systolic function. LA mildly enlarged. No change from prior echo from 04/11/2017. TSH normal. 2. AUBREY: Creatinine 5.2 on admission. Baseline creatinine runs around 2.0. Slight improvement in creatinine. 3. Hyperkalemia initial K6.6 was hemolyzed. EKG unremarkable. In ED, patient received albuterol nebulization 10 mg; insulin IV; Kayexalate 4. Swelling of left clavicular area: Ultrasound of soft tissue neck reported normal. Diabetes mellitus Patient with hyperglycemia on presentation Metformin held. Adjust basal insulin. Glucose 89 mg/dL. Lantus insulin decreased. Hypertension Lisinopril held secondary to AUBREY. Lasix ordered for anasarca. Hydralazine as needed ordered. Trend blood pressure and adjust blood pressure medications. Chronic pain Patient will bump with pain pump. Tizanidine continued. Adjusted for creatinine clearance.
[2021-05-10 08:06] LABS: Anion Gap 9 (5-15); BUN 51 mg/dL (7-18); BUN/Creat Ratio 9.7 RATIO (10-20); Calcium,Total 8.7 mg/dL (8.5-10.1); Chloride 110 mmol/L (98-107); Creatinine, Serum 5.27 mg/dL (0.70-1.30); EST Glomerular Filtration Rate 12 mL/min (>60); Est Glom Filt Rate - Afr Amer 14 mL/min (>60); Estimated Creatinine Clearance 14.04 ml/min; Glucose 126 mg/dL (74-106); Magnesium 2.3 mg/dL (1.6-2.6); Potassium 5.7 mmol/L (3.5-5.1); Sodium Level 142 mmol/L (136-145); Thyroid Stim Hormone (TSH) 1.53 uIU/mL (0.358-3.74)
[2021-05-10 08:23] LABS: Anisocytosis 1+
[2021-05-10] MEDS: amLODIPine 2.5 MG Tablet 7.5 MG PO (10:58)
--- NOTE | 2021-05-10 11:37 | PCM.CONS.R ---
Assessment & Plan Assessment/Plan (1) AUBREY (acute kidney injury): PLAN: History of CKD stage IIIb with baseline creatinine around 1.8. His creatinine was close to baseline about 3 weeks ago. Now presented with acute renal failure creatinine of 5.2. At home he is on lisinopril. That is currently on hold. Urine analysis shows mild protein, no leukocytes, mild RBC CT abdomen without any hydronephrosis CT chest with edema pattern Acute renal failure could be some form of glomerulonephritis, interstitial nephritis from quercitin Creatinine today is about the same as yesterday. Urine output is still present. We will treat medically for now. Increase Lasix to 80 mg twice daily. Repeat another dose of Kayexalate No other uremic symptoms. Hold dialysis for today Serologies ordered. If no conclusive diagnosis, may need a kidney biopsy All questions answered Discussed with hospitalist. (2) Acute hyperkalemia: (3) Anasarca associated with disorder of kidney: HPI Consult Data Date of Consult: 05/10/21 HPI Narrative HPI Narrative: PAOLA LOPEZ, is a 66 M who presents To the hospital with complaints of worsening lower extremity edema, breathing issues. He is known to me from office. Has known history of CKD stage IIIb with baseline creatinine around 1.8. He was last seen in our office beginning of this month and at that time his creatinine was close to baseline. Started having swelling over the last few days. No other complaints. Did not check weight. No hematuria. Only new medication is quercitin. [facility] Medical History Alcohol use Cancer Chronic pain Diabetes Edema Hearing loss, left Hearing loss, right HNP (herniated nucleus pulposus), cervical Hypertension Injury of head and neck Kidney disease Kidney disease Non-smoker Presence of intrathecal pump Sleep apnea Wears glasses Home Medications metformin 1,000 mg PO DINNER 06/12/15 [History Last Taken 05/09/21 1000 mg] omega-3 fatty acids-fish oil 4 ea PO QHS 06/12/15 [History Last Taken 12/14/20] pregabalin 100 mg PO TID 04/11/17 [History Last Taken 05/09/21 100 mg] Pain Pump (Pt's Own) 1.1993 mg SUBCUT CONT 03/03/18 [History Last Taken 12/16/20] amlodipine 7.5 mg PO DAILY 03/03/18 [History Last Taken 05/09/21 7.5] lisinopril 30 mg tablet 30 mg PO DAILY 12/23/19 [History Last Taken 05/09/21 30 mg] Cbd Oil 1 dose PO/SL QHS 12/07/20 [History Last Taken 05/09/21] insulin detemir U-100 55 unit SUBCUT QHS 12/07/20 [History Last Taken 05/09/21 55 u] Testrome 1 applic MISCELLANEOUS DAILY 12/16/20 [History Last Taken 05/09/21] tizanidine 4 mg tablet 6 mg PO .four times daily tab 04/19/21 [History Last Taken 05/09/21 6 mg] Allergy/AdvReac Type Severity Reaction Status Date / Time pollen extracts Allergy Itching Verified 05/09/21 20:06 Qspjeie-Eys-Vtv Reductase AdvReac Pain in Verified 05/09/21 20:06 Inhibitor joints Family History Mother Cancer Father Heart disease Surgical History History of colonoscopy S/P cervical spinal fusion Status post insertion of intrathecal pump Social History Smoking Status: Never smoker ROS ROS Narrative negative except HPI Physical Exam Narrative Alert awake oriented x 3 no obvious distress no pallor no icterus no JVD s1s2 no murmurs lungs clear abdomen soft no organomegaly +++ edema no cyanosis Lab / Micro Data Result Diagrams: 05/10/21 07:04 05/10/21 07:04 Labs: Laboratory Results - last 24 hr 05/09/21 22:13: WBC 6.7, RBC 5.41, Hgb 15.8, Hct 48.4, MCV 89.5, MCH 29.2, MCHC 32.6, RDW Std Deviation 64.4 H, RDW Coeff of Vick 20.1 H, Plt Count 232, MPV 11.1, Immature Gran % (Auto) 0.600, Neut % (Auto) 69.3, Lymph % (Auto) 16.0 L, [place] % (Auto) 11.1 H, Eos % (Auto) 2.1, Baso % (Auto) 0.9, Absolute Neuts (auto) 4.6, Absolute Lymphs (auto) 1.07, Nucleated RBC % 0, Differential Comment SCANNED, Anisocytosis 1+ 05/09/21 22:13: Sodium 135 L, Potassium 6.6 H*, Chloride 107, Carbon Dioxide 22.0, Anion Gap 6, BUN 51 H, Creatinine 5.20 H, Estim Creat Clear Calc 14.23, Est GFR (MDRD) Af Amer 14 L, Est GFR (MDRD) Non-Af 12 L, BUN/Creatinine Ratio 9.8 L, Glucose 162 H, Calcium 8.4 L, Total Bilirubin 0.70, AST 33, ALT 30, Alkaline Phosphatase 69, Troponin I High Sens 18, Total Protein 7.8, Albumin 2.8 L, Globulin 5.0 H, Albumin/Globulin Ratio 0.6 L 05/09/21 22:13: B-Natriuretic Peptide 95.5 05/09/21 23:58: Potassium 5.4 H 05/10/21 02:10: Urine Color Yellow, Urine Clarity Clear, Urine pH 5.0, Ur Specific [place] 1.015, Urine Protein 30 H, Urine Glucose (UA) Normal, Urine Ketones Negative, Urine Occult Blood 25 H, Urine Nitrite Negative, Urine Bilirubin Negative, Urine Urobilinogen Normal, Ur Leukocyte Esterase Negative, Urine RBC 0 SEEN, Urine WBC 0-5 SEEN, Ur Squamous Epith Cells 0 SEEN, Urine Bacteria 1+, Urine Mucus 0 SEEN 05/10/21 02:10: Urine Osmolality 375, Ur Random Sodium 40 05/10/21 06:05: POC Glucose 130 H 05/10/21 07:04: WBC 8.3, RBC 5.08, Hgb 15.0, Hct 45.8, MCV 90.2, MCH 29.5, MCHC 32.8, RDW Std Deviation 66.1 H, RDW Coeff of Vick 20.2 H, Plt Count 250, MPV 10.5, Immature Gran % (Auto) 0.400, Neut % (Auto) 82.6 H, Lymph % (Auto) 6.3 L, [place] % (Auto) 10.2 H, Eos % (Auto) 0.1, Baso % (Auto) 0.4, Absolute Neuts (auto) 6.8, Absolute Lymphs (auto) 0.52 L, Nucleated RBC % 0, Anisocytosis 1+ 05/10/21 07:04: Sodium 142, Potassium 5.7 H, Chloride 110 H, Carbon Dioxide 23.0, Anion Gap 9, BUN 51 H, Creatinine 5.27 H, Estim Creat Clear Calc 14.04, Est GFR (MDRD) Af Amer 14 L, Est GFR (MDRD) Non-Af 12 L, BUN/Creatinine Ratio 9.7 L, Glucose 126 H, Calcium 8.7, Phosphorus 4.0, Magnesium 2.3, TSH 1.53 Micro: Microbiology 05/09/21 23:34 Nasal Secretion SARS-CoV-2 Antigen (Rapid) - Final Radiology Impression Chest/Abdomen/Pelvis CT 05/09/21 21:12 IMPRESSION: 1. Pulmonary edema with bibasilar airspace disease and small effusions. Likely CHF. 2. Abnormal appearance of the gallbladder with some wall thickening and pericholecystic fluid. No evidence of stones. Recommend right upper quadrant ultrasound to further evaluate for acute colitis 3. Nonvisualized appendix. No secondary signs of acute appendicitis however, very subtle and nonspecific inflammation and edema in the right lower quadrant region 4. Fecal retention throughout the colon suggesting constipation Electronically Signed: Cem Rivera DO at 2:15 EDT Tel , Service support , Soft Tissue Ultrasound 05/10/21 02:00 IMPRESSION: Normal ultrasound examination of the soft tissue neck. Electronically Signed: Harjinder Adamson MD at 10:18 EDT Tel , Service support ,
[2021-05-10 12:05] LABS: Bedside Glucose 143 mg/dL (70-110)
--- NOTE | 2021-05-10 12:21 | CASEMGMT ---
TYLER ALANIS assessment: Face to Face with patient for initial transition planning/care coordination assessment. TYLER ALANIS introduced self and role at [facility], pt voices understanding and consents to assessment. Pt is sitting up in bed in no distress. Pt is A/Ox4 and answers all questions appropriately. Pt's is at bedside during assessment. Care providers, pharmacy, and demographics verified. Presentation: Pt c/o feeling 'bloated' for last several days Admitting dx: AUBREY, anasarca PCP: Ziyad Specialists: Grazyna nephro; JACK Bass; Suly, uro; Candelaria morris Preferred Pharmacy: [facility] in [facility] Insurance: [employer]ign[employer], MCR A Prescription Benefit: C[employer] Living Will/HPOA: Pt states does not have LW/HPOA but would like AD info and info provided. LNOK: Yuli Fields, Living Arrangements: Pt lives with in 1 story condo and states no concerns at home. Pt states is independent with ADL's. Transportation: Pt states drives self and states no transportation concerns. DME/HHC: Pt states no current DME or need for any further DME. Pt states no hx of HHC or SNF. Pt states no concerns with going home at discharge. Pt is retired. Pt states does not smoke cigarettes and rarely drinks ETOH. Pt/ voice no further concerns/needs. CM to follow for any further discharge planning/needs. Advised pt to ask for CM if any further questions/concerns/needs arise, voices understanding. Pt Goal: Home Plan[place] TYLER ALANIS
[2021-05-10] MEDS: Sodium Polystyrene Sulfonate 15 GM/60 ML UDC PO (12:53)
[2021-05-10] MEDS: Pregabalin 25 MG Capsule PO ×2 (13:46→22:16)
[2021-05-10 14:47] LABS: Osmolality, Serum 315 mOsm/KG (280-301)
[2021-05-10 17:10] LABS: Bedside Glucose 89 mg/dL (70-110)
[2021-05-10] MEDS: Furosemide 100 MG/10 ML Vial 80 MG IV (17:58)
[2021-05-10] MEDS: Acetaminophen 325 MG Tablet 650 MG PO (22:16)
[2021-05-10 22:45] LABS: Bedside Glucose 128 mg/dL (70-110)
[2021-05-11] VITALS (9 sets, daily range): BP systolic 135–199; BP diastolic 64–83; PULSE 64–87; RESP 16–18; TEMP 36.7–37.2; O2SAT 92–98
[2021-05-11] MEDS: Heparin Injection (Vial) 5,000 UNIT/ML VIAL 5000 UNIT SC ×2 (06:21→15:06)
[2021-05-11 06:41] LABS: Bedside Glucose 108 mg/dL (70-110)
[2021-05-11] MEDS: Furosemide 100 MG/10 ML Vial 80 MG IV ×2 (08:20→17:42)
[2021-05-11] MEDS: amLODIPine 2.5 MG Tablet 7.5 MG PO (08:20)
[2021-05-11] MEDS: tiZANidine HCl 2 MG Tablet 3 MG PO ×3 (08:22→21:19)
[2021-05-11] MEDS: 0.9% Saline Lock 10 ML Syringe IV ×2 (08:25→17:42)
[2021-05-11] MEDS: Pregabalin 25 MG Capsule PO ×2 (08:25→21:19)
[2021-05-11] MEDS: Acetaminophen 325 MG Tablet 650 MG PO ×2 (08:25→15:09)
[2021-05-11 09:10] LABS: ALB/GLOB Ratio 0.6 RATIO (0.9-2.4); AST(SGOT) 35 U/L (15-37); Alanine Aminotransfer ALT/SGPT 30 U/L (16-61); Albumin, Serum 2.8 g/dL (3.2-5.0); Alkaline Phosphatase 67 U/L (45-117); Anion Gap 8 (5-15); BUN 46 mg/dL (7-18); BUN/Creat Ratio 8.9 RATIO (10-20); Calcium,Total 8.8 mg/dL (8.5-10.1); Chloride 109 mmol/L (98-107); Creatinine, Serum 5.18 mg/dL (0.70-1.30); EST Glomerular Filtration Rate 12 mL/min (>60); Est Glom Filt Rate - Afr Amer 14 mL/min (>60); Estimated Creatinine Clearance 14.29 ml/min; Glucose 145 mg/dL (74-106); Magnesium 2.1 mg/dL (1.6-2.6); Phosphorus 3.9 mg/dL (2.5-4.9); Potassium 4.7 mmol/L (3.5-5.1); Protein, Total 7.8 g/dL (6.4-8.2); Sodium Level 143 mmol/L (136-145)
--- NOTE | 2021-05-11 10:05 | CASEMGMT ---
TYLER ALANIS NOTE: Pt given AD packet at this time per his request. Keri DODD RN CM
--- NOTE | 2021-05-11 10:20 | PN.RENAL_ITS ---
Subjective Subjective Following for acute kidney injury on chronic kidney disease. The patient denies increasing shortness of breath. Swelling is subjectively better. He denies nausea, vomiting, or nausea. The patient has some loose bowel movement, but he was given Kayexalate yesterday. Objective Data Objective Data Vital Signs: Vital Signs Temp Pulse Resp BP Pulse Ox 98.1 F 64 18 135/79 H 92 05/11/21 08:20 05/11/21 08:20 05/11/21 08:20 05/11/21 08:20 05/11/21 08:20 Oxygen Delivery Method Room Air Weight: 102.4 kg Body Mass Index (BMI) 33.7 Intake & Output: Intake and Output for Last 24 Hours 05/09/21 05/10/21 05/11/21 23:59 23:59 23:59 Intake Total 460 / 460 Output Total 1000 / 1000 1200 / 1200 Balance -540 / -540 -1200 / -1200 Lab / Micro Data Result Diagrams: 05/10/21 07:04 05/11/21 08:42 Labs: Laboratory Results - last 24 hr 05/10/21 11:58: POC Glucose 143 H 05/10/21 12:20: Serum Osmolality 315 H 05/10/21 16:36: POC Glucose 89 05/10/21 22:25: POC Glucose 128 H 05/11/21 06:24: POC Glucose 108 05/11/21 08:42: Sodium 143, Potassium 4.7, Chloride 109 H, Carbon Dioxide 26.0, Anion Gap 8, BUN 46 H, Creatinine 5.18 H, Estim Creat Clear Calc 14.29, Est GFR (MDRD) Af Amer 14 L, Est GFR (MDRD) Non-Af 12 L, BUN/Creatinine Ratio 8.9 L, Glucose 145 H, Calcium 8.8, Phosphorus 3.9, Magnesium 2.1, Total Bilirubin 0.80, AST 35, ALT 30, Alkaline Phosphatase 67, Total Protein 7.8, Albumin 2.8 L, Globulin 5.0 H, Albumin/Globulin Ratio 0.6 L Micro: Microbiology 05/09/21 23:34 Nasal Secretion SARS-CoV-2 Antigen (Rapid) - Final Radiography Diagnostic Testing: Radiology Impression Echocardiogram 05/10/21 02:00 Interpretation Summary The estimated ejection fraction is EF 55-60 %. Normal LV systolic function No change from prior echo in 04/11/2017 __ Ordering Physician: Kerrie Saunders Referring Physician: Stu Cameron M.D. Performed By: Raisa Nolan, JEVON, RVT Physical Exam Narrative Alert awake oriented x 3 no obvious distress no pallor no icterus no JVD s1s2 no murmurs lungs clear abdomen soft no organomegaly 2+ lower extremity edema no cyanosis Assessment & Plan Assessment/Plan (1) AUBREY (acute kidney injury): PLAN: History of CKD stage IIIb with baseline creatinine around 1.8. His creatinine was close to baseline about 3 weeks ago. Now presented with acute kidney injury with creatinine of 5.27 (05/10/2021). At home he is on lisinopril which is currently on hold. Urine analysis shows mild protein, no leukocytes, mild RBC. CT abdomen without any hydronephrosis. CT chest with edema pattern. Acute kidney injury could be some form of glomerulonephritis, interstitial nephritis from quercitin Creatinine today is slightly better despite diuresis with Lasix. Continue Lasix at 80 mg twice daily. Potassium is better, and there is no severe acidosis. Therefore, there is no need for dialysis today. Serologies ordered. If no conclusive diagnosis, may need a kidney biopsy. The patient was made aware of the possibility of kidney biopsy. Discussed with hospitalist. (2) Acute hyperkalemia: PLAN: Potassium is better at 4.7 mEq/L today. No need for further Kayexalate. (3) Anasarca associated with disorder of kidney: PLAN: Continue Lasix with careful monitoring of renal function and electrolytes.
[2021-05-11 11:31] LABS: Bedside Glucose 130 mg/dL (70-110)
--- NOTE | 2021-05-11 14:36 | PCM.PN.HOSP ---
Subjective Subjective Seen and examined. Patient overall edema of upper extremities, face, abdomen and upper leg is improving. Creatinine is holding up. Objective Data Objective Data Vital Signs: Vital Signs Temp Pulse Resp BP Pulse Ox 98.1 F 67 18 135/79 H 92 05/11/21 08:20 05/11/21 11:50 05/11/21 08:20 05/11/21 08:20 05/11/21 08:20 Oxygen Delivery Method Room Air Weight: 225 lb 12.054 oz Body Mass Index (BMI) 33.7 Intake & Output: Intake and Output for Last 24 Hours 05/09/21 05/10/21 05/11/21 23:59 23:59 23:59 Intake Total 460 / 460 200 / 200 Output Total 1000 / 1000 2700 / 2700 Balance -540 / -540 -2500 / -2500 Lab / Micro Data Result Diagrams: 05/10/21 07:04 05/11/21 08:42 Labs: Laboratory Results - last 24 hr 05/10/21 12:20: Serum Osmolality 315 H 05/10/21 16:36: POC Glucose 89 05/10/21 22:25: POC Glucose 128 H 05/11/21 06:24: POC Glucose 108 05/11/21 08:42: Sodium 143, Potassium 4.7, Chloride 109 H, Carbon Dioxide 26.0, Anion Gap 8, BUN 46 H, Creatinine 5.18 H, Estim Creat Clear Calc 14.29, Est GFR (MDRD) Af Amer 14 L, Est GFR (MDRD) Non-Af 12 L, BUN/Creatinine Ratio 8.9 L, Glucose 145 H, Calcium 8.8, Phosphorus 3.9, Magnesium 2.1, Total Bilirubin 0.80, AST 35, ALT 30, Alkaline Phosphatase 67, Total Protein 7.8, Albumin 2.8 L, Globulin 5.0 H, Albumin/Globulin Ratio 0.6 L 05/11/21 11:18: POC Glucose 130 H Micro: Microbiology 05/09/21 23:34 Nasal Secretion SARS-CoV-2 Antigen (Rapid) - Final Physical Exam Narrative Improvement in swelling of leg and abdomen and arms. General: Alert, Oriented x3, Cooperative HEENT: Atraumatic, PERRLA, EOMI, Normocephalic Oral: No Gingival or Mucosal Lesions/ Ulcerations Neck: Supple, No JVD, Negative Carotid Bruits Lungs: Air entry diminished in bilateral lung bases. Mild bibasilar crepitations in lower lungs. Cardiovascular: Regular rate, Regular Rhythm, Normal S1, Normal S2, No murmurs Abdomen: Abdominal distention improving, bowel Sounds Present, Soft, Non Tender. Pain pump on right lower quadrant. : No renal angle tenderness. No suprapubic tenderness. Extremities: Mild bilateral thigh edema, Capillary Refill Less than 3 Seconds Skin: No rashes, No breakdown Musculoskeletal: No Tenderness to Palpation of Joints or Extremities Neurological: Cranial nerves II-XII grossly intact, DTR 2+/4 and Symmetrical, Neuro grossly intact Psych/Mental Status: Normal Affect, Appropriate. Assessment & Plan Assessment/Plan (1) AUBREY (acute kidney injury): PLAN: 1. Anasarca and AUBREY over CKD CT chest abdomen pelvis with pulmonary edema with bibasilar airspace disease and small effusion likely CHF. CT with questionable wall thickening and edema with pericholecystic inflammation of the gallbladder. Patient has no fever or leukocytosis. Right upper quadrant sonogram ordered for tomorrow a.m. Discussed with the editor greeting card. Kayexalate given for hyperkalemia. Lisinopril on hold. Pregabalin dosage decreased. Patient not on antidiabetic oral medications. 2D echo shows EF 55 to 60%, mild concentric LVH. Normal RV systolic function. LA mildly enlarged. No change from prior echo from 04/11/2017. TSH normal. 2. AUBREY: Creatinine 5.2 on admission. Baseline creatinine runs around 2.0. Slight improvement in creatinine. 05/11: Discussed with editor greeting card. AUBREY may be due to glomerulonephritis, interstitial nephritis from quercetin. Creatinine did not show increase with diuresis good sign. On Lasix 80 mg twice daily. No need for WELL SERVICES OPERATOR. Serologies ordered by editor greeting card is pending. 3. Hyperkalemia initial K6.6 was hemolyzed. EKG unremarkable. In ED, patient received albuterol nebulization 10 mg; insulin IV; Kayexalate 05/11: Potassium is 4.7. 4. Swelling of left clavicular area: Ultrasound of soft tissue neck reported normal. Diabetes mellitus Patient with hyperglycemia on presentation Metformin held. Adjust basal insulin. Glucose 89 mg/dL. Lantus insulin decreased. Hypertension Lisinopril held secondary to AUBREY. Lasix ordered for anasarca. Hydralazine as needed ordered. Trend blood pressure and adjust blood pressure medications. Chronic pain Patient will bump with pain pump. Tizanidine continued. Adjusted for creatinine clearance. Charges/Coding Visit Charges Inpatient E&M: 17214 Subs Hosp L2
[2021-05-11] MEDS: Senna/Docusate Sodium 1 Tablet 2 TABLET PO (15:07)
--- NOTE | 2021-05-11 19:28 | NURSING ---
PT REFUSING BLOOD SUGAR CHECKS. EDUCATED THAT HE HAS SCHEDULED LANTUS THIS EVENING. STATES THE 25UNITS IS HALF OF WHAT HE NORMALLY TAKES SO HE IS OKAY TAKING IT WITHOUT CHECKING HIS BG FIRST. UNDERSTANDS RISKS AND STATES IF HE NEEDS RN TO, HE WILL REQUEST RN TO CHECK BG.
[2021-05-11 21:10] LABS: Anti-dsDNA Ab <1 IU/mL (0-9)
--- NOTE | 2021-05-11 21:38 | NURSING ---
bp 182/83. pt states this happens freq and is refusing PRNs hydralazine.
[2021-05-12] VITALS (13 sets, daily range): BP systolic 145–200; BP diastolic 65–79; PULSE 56–82; RESP 18; TEMP 36.6–37; O2SAT 93–97
[2021-05-12] MEDS: Acetaminophen 325 MG Tablet 650 MG PO (02:59)
[2021-05-12] MEDS: tiZANidine HCl 2 MG Tablet 3 MG PO ×4 (02:59→21:18)
[2021-05-12] MEDS: Heparin Injection (Vial) 5,000 UNIT/ML VIAL 5000 UNIT SC ×3 (05:18→21:18)
[2021-05-12 05:31] LABS: Bedside Glucose 88 mg/dL (70-110)
[2021-05-12 07:56] LABS: Anion Gap 9 (5-15); BUN 49 mg/dL (7-18); BUN/Creat Ratio 9.7 RATIO (10-20); Calcium,Total 8.8 mg/dL (8.5-10.1); Chloride 107 mmol/L (98-107); Creatinine, Serum 5.03 mg/dL (0.70-1.30); EST Glomerular Filtration Rate 12 mL/min (>60); Est Glom Filt Rate - Afr Amer 15 mL/min (>60); Estimated Creatinine Clearance 14.71 ml/min; Glucose 101 mg/dL (74-106); Magnesium 1.9 mg/dL (1.6-2.6); Potassium 4.5 mmol/L (3.5-5.1); Sodium Level 141 mmol/L (136-145)
[2021-05-12] MEDS: Senna/Docusate Sodium 1 Tablet 2 TABLET PO ×2 (09:07→21:17)
[2021-05-12] MEDS: Furosemide 100 MG/10 ML Vial 80 MG IV ×2 (09:08→17:00)
[2021-05-12] MEDS: amLODIPine 2.5 MG Tablet 7.5 MG PO (09:08)
[2021-05-12] MEDS: Pregabalin 25 MG Capsule PO ×2 (09:08→21:18)
[2021-05-12] MEDS: 0.9% Saline Lock 10 ML Syringe IV ×2 (09:09→17:00)
[2021-05-12] MEDS: hydrALAZINE 50 MG Tablet PO ×2 (11:45→21:18)
[2021-05-12 11:55] LABS: Bedside Glucose 125 mg/dL (70-110)
--- NOTE | 2021-05-12 14:17 | PN.HOSP_ITS ---
Subjective Subjective Seen and examined. Generalized edema is improving. Creatinine is holding up. Objective Data Objective Data Vital Signs: Vital Signs Temp Pulse Resp BP Pulse Ox 98.1 F 64 18 173/65 H 93 05/12/21 11:40 05/12/21 11:45 05/12/21 11:40 05/12/21 11:45 05/12/21 11:40 Oxygen Delivery Method Room Air Weight: 219 lb 9.286 oz Body Mass Index (BMI) 33.7 Intake & Output: Intake and Output for Last 24 Hours 05/10/21 05/11/21 05/12/21 23:59 23:59 23:59 Intake Total 460 / 460 500 / 1000 980 / 980 Output Total 1000 / 1000 3000 / 3000 3300 / 3300 Balance -540 / -540 -2500 / -2000 -2320 / -2320 Lab / Micro Data Result Diagrams: 05/10/21 07:04 05/12/21 06:02 Labs: Laboratory Results - last 24 hr 05/10/21 12:20: Double Strand DNA Ab <1 05/12/21 05:16: POC Glucose 88 05/12/21 06:02: Sodium 141, Potassium 4.5, Chloride 107, Carbon Dioxide 25.0, Anion Gap 9, BUN 49 H, Creatinine 5.03 H, Estim Creat Clear Calc 14.71, Est GFR (MDRD) Af Amer 15 L, Est GFR (MDRD) Non-Af 12 L, BUN/Creatinine Ratio 9.7 L, Glucose 101, Calcium 8.8, Magnesium 1.9 05/12/21 11:40: POC Glucose 125 H Micro: Microbiology 05/09/21 23:34 Nasal Secretion SARS-CoV-2 Antigen (Rapid) - Final Physical Exam Narrative Improvement in swelling of leg and abdomen and arms. General: Alert, Oriented x3, Cooperative HEENT: Atraumatic, PERRLA, EOMI, Normocephalic Oral: No Gingival or Mucosal Lesions/ Ulcerations Neck: Supple, No JVD, Negative Carotid Bruits Lungs: Air entry diminished in bilateral lung bases. Mild bibasilar crepitations. No tachypnea Cardiovascular: Regular rate, Regular Rhythm, Normal S1, Normal S2, No murmurs Abdomen: Abdominal distention improving, bowel Sounds Present, Soft, Non Tender. Pain pump on right lower quadrant. : No renal angle tenderness. No suprapubic tenderness. Extremities: Decrease in edema in upper extremities, face and upper thighs. Capillary Refill Less than 3 Seconds Skin: No rashes, No breakdown Musculoskeletal: No Tenderness to Palpation of Joints or Extremities Neurological: Cranial nerves II-XII grossly intact, DTR 2+/4 and Symmetrical, Neuro grossly intact Psych/Mental Status: Normal Affect, Appropriate. Assessment & Plan Assessment/Plan (1) AUBREY (acute kidney injury): PLAN: 1. Anasarca and AUBREY over CKD CT chest abdomen pelvis with pulmonary edema with bibasilar airspace disease and small effusion likely CHF. CT with questionable wall thickening and edema with pericholecystic inflammation of the gallbladder. Patient has no fever or leukocytosis. Right upper quadrant sonogram ordered for tomorrow a.m. Discussed with the hand bulldozer. Kayexalate given for hyperkalemia. Lisinopril on hold. Pregabalin dosage decreased. Patient not on antidiabetic oral medications. 2D echo shows EF 55 to 60%, mild concentric LVH. Normal RV systolic function. LA mildly enlarged. No change from prior echo from 04/11/2017. TSH normal. 05/12: Echo finding discussed with the patient's . Suggestive of chronic diastolic heart failure probably due to uncontrolled hypertension. Amlodipine discontinued as patient is generalized edema. Low-dose metoprolol started as patient heart rate is in 60s. 2. AUBREY: Creatinine 5.2 on admission. Baseline creatinine runs around 2.0. Slight improvement in creatinine. 05/11: Discussed with hand bulldozer. AUBREY may be due to glomerulonephritis, interstitial nephritis from quercetin. Creatinine did not show increase with diuresis good sign. On Lasix 80 mg twice daily. No need for DENTAL TECHNICIAN METAL. Serologies ordered by hand bulldozer is pending. 05/12: Continue diuretic. Creatinine did not show increase. 3. Hyperkalemia initial K6.6 was hemolyzed. EKG unremarkable. In ED, patient received albuterol nebulization 10 mg; insulin IV; Kayexalate 05/11: Potassium is 4.7. 4. Swelling of left clavicular area: Ultrasound of soft tissue neck reported normal. Diabetes mellitus Patient with hyperglycemia on presentation Metformin held. Adjust basal insulin. Glucose 89 mg/dL. Lantus insulin decreased. Hypertension Lisinopril held secondary to AUBREY. Lasix ordered for anasarca. Hydralazine as needed ordered. Trend blood pressure and adjust blood pressure medications. Chronic pain Patient will bump with pain pump. Tizanidine continued. Adjusted for creatinine clearance. Charges/Coding Visit Charges Inpatient E&M: 09338 Subs Hosp L2
[2021-05-12 17:10] LABS: Bedside Glucose 107 mg/dL (70-110)
[2021-05-12] MEDS: Metoprolol Tartrate 25 MG Tablet 12.5 MG PO (21:18)
[2021-05-12 22:06] LABS: Bedside Glucose 198 mg/dL (70-110)
[2021-05-13] VITALS (27 sets, daily range): BP systolic 135–219; BP diastolic 17–87; PULSE 51–81; RESP 12–30; TEMP 36.6–37.2; O2SAT 16–99; BMI 31.8
--- NOTE | 2021-05-13 | KI_PTH ---
PATIENT: PAOLA LOPEZ LOC: [facility] U#:[id number] AGE/SX: 66/M ROOM: [facility] RE05/10/[address]: Dr. Suyapa Akers MD : [id number] BED: 1 DIS: 05/14/2021 SPEC #: [id number] RECD: 05/13/21 12:58 STATUS: HUNTER REClement #: [id number] MANUEL: 05/13/21 00:[address]: Marilin Geronimo DEPT: SURGICAL PATHOLOGY RECD BY: Joslyn Guillen ENTERED: 05/13/21 12:58 SP TYPE: KIDNEY BX OTHR DR: MD Dr. Marilin Woodward MD Dr. Nana Yaa Koram, MD Dr. Scott Hannan, MD Tissues: Kidney, NOS Procedures: Kidney Biopsy (ACH) Spec St Grp II (ACH) Comments: @ Ordering doctor for FEI edited from to @ niko RUSSELL at 05/22/21 111 @ Submitting doctor edited from to @ by RGOOD at 05/22/21 1115 HEADER OPERATION: Kidney biopsy PRE-OP DIAGNOSIS: Acute kidney injury TISSUE SUBMITTED: Kidney 18-gauge core x5 MICROSCOPIC DIAGNOSIS Kidney, laterality not specified, biopsies: Fragmented fibroadipose, muscle and renal tissue. Renal cortex inadequate for interpretation. COMMENT Correlate clinically with history and onset of symptoms. Tissue is suboptimal for evaluation. Renal cortical tissue is minute. Case findings and preliminary suboptimal tissue discussed with Dr. Geronimo on 05/14/[address] Sanchez. Slides show at intradepartmental conference on 05/15/21. Tissue is inadequate for diagnostic interpretation. CLINICAL INFORMATION: Acute kidney injury. Kidney biopsy. History of type 2 diabetes, hyperlipidemia, benign hypertension, neuropathy, osteoarthritis and lumbar disc disorder. Elevated creatinine chronic kidney disease stage III. Use of NSAIDs. Increased BMI. MICROSCOPIC DESCRIPTION Light microscopy examined with H & E stain yields fragments of fibrous tissue, adipose tissue, muscle, vascular wall and minute renal tissue. There is a fragment comprised of medullary renal tissue. There is a single focus of sparse renal cortex that shows 2 glomeruli, of which 1 is only partially visualized. The tubules show mild injury changes; however, there is mild hemorrhagic change and crush artifact. Special stains are not pursued. GROSS DESCRIPTION The specimen is sent entirely to [facility] for diagnosis. Received in polytransport medium in a vial labeled with the patient?s name, medical record number and designation kidney are nine fragments of wallace and white tissue. One of the fragments consist of a core of tissue measuring 1 cm in length and 0.1 cm in width. The remaining eight fragments consist of minute tissue and adipose measuring approximately 0.2 x 0.1 x 0.1 cm each. No glomeruli are visualized under the dissecting microscope. Gross tissue reviewed by Drs. Sanchez and Wilman. Immunofluorescence and electron microscopy are deferred; and the entirety of the tissue is submitted for permanent histologic examination in cassette A1.
[2021-05-13] MEDS: Heparin Injection (Vial) 5,000 UNIT/ML VIAL 5000 UNIT SC ×2 (05:04→20:16)
[2021-05-13] MEDS: tiZANidine HCl 2 MG Tablet 3 MG PO ×3 (05:12→17:53)
[2021-05-13] MEDS: 0.9% Saline Lock 10 ML Syringe IV ×3 (06:31→17:53)
[2021-05-13 06:40] LABS: Bedside Glucose 83 mg/dL (70-110)
[2021-05-13 07:28] LABS: Anion Gap 8 (5-15); BUN 53 mg/dL (7-18); BUN/Creat Ratio 10.8 RATIO (10-20); Chloride 105 mmol/L (98-107); Creatinine, Serum 4.93 mg/dL (0.70-1.30); EST Glomerular Filtration Rate 13 mL/min (>60); Est Glom Filt Rate - Afr Amer 15 mL/min (>60); Estimated Creatinine Clearance 15.01 ml/min; Glucose 87 mg/dL (74-106); Sodium Level 141 mmol/L (136-145)
[2021-05-13] MEDS: hydrALAZINE 50 MG Tablet PO ×2 (07:59→20:16)
[2021-05-13] MEDS: Furosemide 100 MG/10 ML Vial 80 MG IV ×2 (07:59→17:19)
[2021-05-13] MEDS: Metoprolol Tartrate 25 MG Tablet 12.5 MG PO (08:00)
[2021-05-13] MEDS: Senna/Docusate Sodium 1 Tablet 2 TABLET PO ×2 (08:01→20:15)
[2021-05-13] MEDS: Pregabalin 25 MG Capsule PO ×2 (08:06→20:32)
--- NOTE | 2021-05-13 08:31 | CT_ITS ---
PROCEDURE: CT-guided percutaneous random renal biopsy. CLINICAL HISTORY: Male, 66 years old presenting with acute renal injury. kidney biopsy requested CONSENT: Time-Out Called: Yes Consent form signed: YES PT-PTT Levels Checked: Yes PROCEDURE: CT-guided percutaneous left renal biopsy. CONSENT: Informed, written consent was obtained from the patient, prior to procedure and following discussion of risks, benefits, alternatives and personnel. Patient oriented dose modulation technique utilized. SEDATION: VERSED 2 mg and FENTANYL 50 mcg intravenous. PERFORMING PHYSICIAN: Yuri Waldron MD DATE OF PROCEDURE: 05/13/2021 ADDICTIONS COUNSELOR ASSISTANT: NONE ESTIMATED BLOOD LOSS: Minimal SPECIMENS REMOVED: Sample sent to laboratory with appropriate orders. COMPLICATIONS: Bleeding stopped with Gelfoam embolization. TECHNIQUE: The procedure, risks, alternatives and complications were explained to the patient and written informed consent was obtained. Patient was positioned prone on the CT table. A timeout procedure was obtained. Limited axial CT images of the abdomen were obtained and demonstrated bilateral kidneys, the decision was made to biopsy the lower pole of the left kidney.. And access site was marked on the patient''s skin overlying the posterolateral aspect of the lower pole of the left kidney after which the overlying skin was prepared in standard, sterile fashion. The skin was anesthetized with lidocaine and a small skin incision was made. Under CT fluoroscopic guidance a 17-gauge coaxial introducer needle was intermittently advanced into the lower pole of the left kidney. An 18 gauge coaxial core biopsy needle was then inserted through the needle and 5core biopsy specimens were obtained and sent to lab for analysis. Gelfoam embolization of the biopsy site and access tract was then performed after which the access needle was removed and sterile dressing was applied. Follow-up imaging demonstrated no evidence of significant complications. The patient tolerated the procedure well with no immediate complications and was transferred to recovery in stable condition. CT/Biopsy/Inj or Needle Placement IMPRESSION: Technically successful random percutaneous CT biopsy of the lower pole of the left kidney, five 18-gauge core biopsy specimens obtained and sent to lab for analysis. Electronically Signed: Yuri Waldron MD at 13:15 EDT Tel , Service support ,
[2021-05-13 08:45] LABS: International Normalized Ratio 1.1; Prothrombin Time (Protime)PT. 13.2 SECONDS (11.7-14.9)
[2021-05-13 08:46] LABS: Partial Thromboplast Time 29.1 Seconds (24.1-36.2)
[2021-05-13] MEDS: hydrALAZINE 20 MG/ML Vial 10 MG IV (10:30)
[2021-05-13] MEDS: Midazolam 2 MG/2 ML Syringe IV ×2 (10:50→11:34)
[2021-05-13] MEDS: fentaNYL 100 MCG/2 ML Ampul IV ×2 (10:59→11:13)
[2021-05-13] MEDS: Lidocaine 2% (20 ml mdv) 20 ML Vial INFILT (11:10)
--- NOTE | 2021-05-13 11:56 | PN.HOSP_ITS ---
Subjective Subjective Patient seen and examined. He had no active complaints today. He is due for kidney biopsy today. Creatinine is trended down to 4.93. Generalized edema is also improving. Blood pressure is elevated this morning at 198/68. He has otherwise remained hemodynamically stable. Objective Data Objective Data Vital Signs: Vital Signs Temp Pulse Resp BP Pulse Ox 98.5 F 62 15 198/68 H 97 05/13/21 09:02 05/13/21 10:30 05/13/21 10:14 05/13/21 10:30 05/13/21 10:14 Oxygen Delivery Method Room Air Weight: 222 lb 3.615 oz Body Mass Index (BMI) 31.8 Intake & Output: Intake and Output for Last 24 Hours 05/11/21 05/12/21 05/13/21 23:59 23:59 23:59 Intake Total 500 / 1000 1220 / 1220 420 / 420 Output Total 3000 / 3000 4200 / 4200 2400 / 2400 Balance -2500 / -1999 -2980 / -2980 -1979 / Lab / Micro Data Result Diagrams: 05/10/21 07:04 05/13/21 06:45 Labs: Laboratory Results - last 24 hr 05/12/21 11:40: POC Glucose 125 H 05/12/21 16:58: POC Glucose 107 05/12/21 21:16: POC Glucose 198 H 05/13/21 06:27: POC Glucose 83 05/13/21 06:45: Sodium 141, Potassium 4.0, Chloride 105, Carbon Dioxide 28.0, Anion Gap 8, BUN 53 H, Creatinine 4.93 H, Estim Creat Clear Calc 15.01, Est GFR (MDRD) Af Amer 15 L, Est GFR (MDRD) Non-Af 13 L, BUN/Creatinine Ratio 10.8, Glucose 87, Calcium 9.0 05/13/21 08:15: PT 13.2, INR 1.1, APTT 29.1 Micro: Microbiology 05/09/21 23:34 Nasal Secretion SARS-CoV-2 Antigen (Rapid) - Final Physical Exam Const alert, oriented x3 and no apparent distress Exam Limitations: no limitations HEENT head/scalp atraumatic and moist oral mucous membranes Head and Scalp: normocephalic Eyes PERRL Neck no lymphadenopathy Resp normal respiratory effort, no retractions, no use of accessory muscles and clear to auscultation bilaterally Cardio regular rate, regular rhythm, S1 normal heart sound, S2 normal heart sound and no gallops GI normal to inspection, nondistended, normoactive bowel sounds, soft to palpation, non-tender and non-distended Extremity normal to inspection and full ROM Extremity Narrative: mild 1+ bipedal pitting edema Peripheral Pulses: Yes pulses 2+ throughout Skin no rashes or lesions noted Neuro oriented x3, CN's II-XII intact bilaterally and moves all extremities Sensorium / Orientation: awake and alert Psych affect normal Assessment & Plan Assessment/Plan (1) AUBREY (acute kidney injury): (2) Anasarca associated with disorder of kidney: PLAN: ##AUBREY on CKD with anasarca * CR now down to 4.93 * CT of the behcst, abdomena nd pelvis showed pulmonary edema and bibasilar airpace disease with small effusion, and questionable thickening and edema with pericholecystic inflammation of the gallbladder. * Nephrology on board. Lisinopril held. * Baseline creatinine is around 2. Now 4.93. For kidney biopsy today. Possibilities for differential includes glomerulonephritis and interstitial nephritis from quercetin which he previously took. * continue trending Cr * #Hyperkalemia: resolved #HFpEF * 2D echo showed EF of 55-60%, with mild concentric LVH and normal RV systolic function * on lasix. * #Left clavicular swelling: stable. USG of soft tissue of neck was normal #Type 2 diabetes mellitus * ISS. metformin on hold * on lantus 55 units qhs * accuchecks ACHS * #Hyperension: * lisinopril on hold. Poorly controlled. BP today is 198/68. IV hydralazine prn. * On lasix and PO hydralazine as well as metoprolol. #Chronic pain: on pain pump. #DVT prophylaxis: heparin. Charges/Coding Visit Charges Inpatient E&M: 38751 Subs Hosp L3
[2021-05-13] MEDS: Acetaminophen 325 MG Tablet 650 MG PO (12:52)
[2021-05-13 12:55] LABS: Bedside Glucose 90 mg/dL (70-110)
--- NOTE | 2021-05-13 13:43 | CASEMGMT ---
This RN CM received call from Aleyda in regards to pt's intrathecal pain pump refill and asks if the hospital wants to address this. This RN CM asked when it is scheduled to be refilled and Aleyda states not until next week. This RN CM advised her that pt will likely be discharged by that time, voices understanding. Aleyda's contact info: [phone]. SStsotero SCOTT CM
--- NOTE | 2021-05-13 17:03 | PCM.PN.BLA ---
Progress Note biopsy ordered due to high creatinine. coags ordered before. patient was in procedure
[2021-05-13] MEDS: Insulin Lispro 100 UNIT/ML INSULN.PEN SC ×2 (17:17→20:17)
[2021-05-13] MEDS: Morphine 2 MG/ML Syringe IV (17:53)
[2021-05-13 18:06] LABS: Bedside Glucose 163 mg/dL (70-110)
[2021-05-13 22:30] LABS: Bedside Glucose 235 mg/dL (70-110)
[2021-05-14] VITALS (7 sets, daily range): BP systolic 168; BP diastolic 67–73; PULSE 62–74; RESP 16–18; TEMP 36.8; O2SAT 93–97
[2021-05-14] MEDS: tiZANidine HCl 2 MG Tablet 3 MG PO (02:47)
[2021-05-14 05:47] LABS: Absolute Lymphocyte Count 0.75 X10^3/uL (0.83-4.51); Absolute Neutrophil Count 5.3 X10^3/uL (2.0-7.7); Basophil# 0.05 X10^3/uL; Basophil% 0.7 % (0-1); Eosinophil# 0.18 X10^3/uL; Eosinophils% 2.5 % (0-5); Hematocrit 49.4 % (40-54); Hemoglobin 16.7 g/dL (13.0-16.5); Lymphocyte # 0.75 X10^3/ul (0.83-4.51); Lymphocyte % 10.5 % (19-41); Mean Corp Hgb Conc 33.8 g/dL (32-36); Mean Corpuscular Volume 85.9 fL (80-94); Mean Platelet Vol. 10.2 fl (6.2-12.0); Monocyte# 0.84 X10^3/uL; Monocyte% 11.7 % (0-10); NRBC Flagged by Analyzer 0 % (0-5); Neutrophil # 5.32 X10^3/uL (2.7-7.7); Neutrophil % 74.2 % (47-70); Platelet Count 314 K/mm3 (150-450); RBC Distribution Width CV 19.2 % (11.6-14.6); Red Blood Count 5.75 M/mm3 (4.6-6.2); White Blood Count 7.2 K/mm3 (4.4-11.0)
[2021-05-14 06:03] LABS: Anion Gap 9 (5-15); BUN 60 mg/dL (7-18); BUN/Creat Ratio 12.3 RATIO (10-20); Chloride 103 mmol/L (98-107); Creatinine, Serum 4.87 mg/dL (0.70-1.30); EST Glomerular Filtration Rate 13 mL/min (>60); Est Glom Filt Rate - Afr Amer 15 mL/min (>60); Glucose 97 mg/dL (74-106); Potassium 3.8 mmol/L (3.5-5.1); Sodium Level 140 mmol/L (136-145)
[2021-05-14] MEDS: Heparin Injection (Vial) 5,000 UNIT/ML VIAL 5000 UNIT SC (06:47)
[2021-05-14 06:55] LABS: Bedside Glucose 92 mg/dL (70-110)
[2021-05-14 08:12] LABS: Albumin 3.2 g/dL (2.9-4.4); Alpha-1-Globulins 0.3 g/dL (0.0-0.4); Alpha-2-Globulins 0.9 g/dL (0.4-1.0); Cytoplasmic Ab (C-ANCA) <1:20 titer (Neg:<1:20); Immunoglobulin A 148 mg/dL (61-437); Immunoglobulin G 974 mg/dL (603-1613); Immunoglobulin M 34 mg/dL (20-172); PROEL- TOTAL PROTEIN 6.3 g/dL (6.0-8.5)
[2021-05-14] MEDS: Furosemide 100 MG/10 ML Vial 80 MG IV (08:42)
[2021-05-14] MEDS: Metoprolol Tartrate 25 MG Tablet 12.5 MG PO (08:44)
[2021-05-14] MEDS: hydrALAZINE 50 MG Tablet PO (08:45)
[2021-05-14] MEDS: Pregabalin 25 MG Capsule PO (10:02)
[2021-05-14 11:20] LABS: Bedside Glucose 152 mg/dL (70-110)
--- NOTE | 2021-05-14 11:56 | PCM.DC.SUM ---
Providers Date of Admission: 05/10/21 Primary Care Physician: Dr. Gino Lackey MD Consultations 05/10/21 02:00 Consult: Nephrology Routine Consulting Provider: Marilin Geronimo Reason for Consult: AUBREY EMERGENT Consult: No MD Notified: Yes Date Notified: 05/10/21 Time Notified: 00:29 Method of Notification: Provider Initiated Reason For Visit: AUBREY, ANASARCA Diagnosis Discharge Diagnosis (1) AUBREY (acute kidney injury): Status: Acute Code(s): N17.9 - Acute kidney failure, unspecified (2) Anasarca associated with disorder of kidney: Status: Acute Code(s): N04.9 - Nephrotic syndrome with unspecified morphologic changes Medications at Discharge Home Medications omega-3 fatty acids-fish oil 4 ea PO QHS 06/12/15 pregabalin 100 mg PO TID 04/11/17 Pain Pump (Pt's Own) 1.1993 mg SUBCUT CONT 03/03/18 Cbd Oil 1 dose PO/SL QHS 12/07/20 Testrome 1 applic MISCELLANEOUS DAILY 12/16/20 tizanidine 4 mg tablet 6 mg PO .four times daily tab 04/19/21 furosemide [Lasix] 80 mg PO BID #60 tab 05/14/21 hydralazine 50 mg PO BID #60 tab 05/14/21 insulin detemir U-100 25 unit SUBCUT QHS #15 ml 05/14/21 metoprolol tartrate 12.5 mg PO BID #30 tab 05/14/21 Hospital Course Operations None Procedures - (kidney biopsy) Summary of Care Provided Minutes Spent on Discharge: 40 Hospital Course: Patient is a 66-year-old male with an extensive past medical history as outlined. He was admitted through the ED on 05/09/2021 with a complaint of increased generalized swelling and shortness of breath for about 3 days prior to admission. He said he usually had swelling in his legs but he has started having swelling in his abdomen and upper extremities as well as his face over the 3 days prior to admission. Cr was 5.2 on admissiion, with BUN of 51 and Cr of 6.6 and sodium of 135. He was admitted and managed for anasarca due to AUBREY on CKD stage 3B and hyperkalemia. Nephrology was consulted. He was given potassium depleting cocktail and kayexalate. He was started on diuretics as well. CT chest, abdomen and pelvis showed pulmonary edema with bibasilar airspace disease and small effusions, as well as abnormal appearance of the gallbladder with some wall thickening and pericholecystic fluid. He had left lateral neck edema and USG done which was normal. 2D echo showed EF of 55-60% and normal LV systolic function, and no change from prior echo. Potassium gradually trended down. His edema and anasarca also improved markedly. He had a kidney biopsy on 05/12/2021, results of which were still pending at time of review. Cr trended down gradually and was down to 4.83 on discharge. Patient was still making good urine, and felt much better. Per discussion with nephrology, he was discharged home on 05/14/2021 on PO lasix 80mg bid. He is to follow up with nephrology on 05/16/2021. He also had immunologic studies done which were still pending at time of discharge. Amlodipine and lisinopril were discontinued, and patient was put on PO hydralazine and metoprolol for hypertension Patient seen and examined prior to discharge. He had no complaints and felt well. REview of systems otherwise negative. Labs and vitals reviewed. Home meds reviewed and reconciled. Physical Exam Const alert, oriented x3 and no apparent distress General Appearance: cooperative and comfortable Exam Limitations: no limitations HEENT normocephalic, head/scalp atraumatic, hearing grossly normal bilaterally and moist oral mucous membranes Eyes PERRL, EOMs intact bilaterally, conjunctivae normal and no scleral icterus Neck no lymphadenopathy General: trachea midline Resp normal respiratory effort, normal air movement, no retractions, no use of accessory muscles and clear to auscultation bilaterally Cardio regular rate, regular rhythm, S1 normal heart sound, S2 normal heart sound, no gallops and peripheral pulses 2+ throughout GI normal to inspection, nondistended, normoactive bowel sounds, soft to palpation, non-tender and non-distended GI Narrative: palpable pain pump in right lower quadrant Inspection: abdominal distention Auscultation: normoactive bowel sounds Extremity normal to inspection, full ROM and normal capillary refill Extremity Narrative: mild 1+ bipedal pitting edema General Extremity: edema bilateral upper extremity and lower extremity Details: moderate Skin no rashes or lesions noted General Skin Exam: no breakdown and turgor normal Lesions: no lesions Rashes: no rashes Neuro oriented x3, CN's II-XII intact bilaterally, moves all extremities, no focal motor deficits and no sensory deficits noted Sensorium / Orientation: awake and alert Speech: speech normal Motor Exam: Negative for general weakness Psych thought process normal, cooperative and affect normal Appearance: appropriate Weight / BMI Weight Weight: 212 lb 4.882 oz Body Mass Index (BMI) 31.8 ABG / Lab / Microbiology Data Result Diagrams: 05/14/21 05:36 05/14/21 05:36 Laboratory: Laboratory Results - last 24 hr 05/13/21 12:47: POC Glucose 90 05/13/21 17:16: POC Glucose 163 H 05/13/21 20:11: POC Glucose 235 H 05/14/21 05:36: WBC 7.2, RBC 5.75, Hgb 16.7 H, Hct 49.4, MCV 85.9, MCH 29.0, MCHC 33.8, RDW Std Deviation 58.0 H, RDW Coeff of Vick 19.2 H, Plt Count 314, MPV 10.2, Immature Gran % (Auto) 0.400, Neut % (Auto) 74.2 H, Lymph % (Auto) 10.5 L, [place] % (Auto) 11.7 H, Eos % (Auto) 2.5, Baso % (Auto) 0.7, Absolute Neuts (auto) 5.3, Absolute Lymphs (auto) 0.75 L, Nucleated RBC % 0 05/14/21 05:36: Sodium 140, Potassium 3.8, Chloride 103, Carbon Dioxide 28.0, Anion Gap 9, BUN 60 H, Creatinine 4.87 H, Estim Creat Clear Calc 15.20, Est GFR (MDRD) Af Amer 15 L, Est GFR (MDRD) Non-Af 13 L, BUN/Creatinine Ratio 12.3, Glucose 97, Calcium 9.0 05/14/21 06:46: POC Glucose 92 05/14/21 11:14: POC Glucose 152 H Microbiology: Microbiology 05/09/21 23:34 Nasal Secretion SARS-CoV-2 Antigen (Rapid) - Final Radiography Diagnostic Testing: Radiology Impression Biopsy CT 05/13/21 08:31 IMPRESSION: Technically successful random percutaneous CT biopsy of the lower pole of the left kidney, five 18-gauge core biopsy specimens obtained and sent to lab for analysis. Electronically Signed: Yuri Waldron MD at 13:15 EDT Tel , Service support , D/C Instructions Discharge Diet: Low fat / Low cholesterol Discharge Activity: Return to Normal Activity Weight Bearing Status: Weight bearing as tolerated Call your doctor if you observe: Fever of 101 or Higher, Inability to urinate, Shortness of breath, Dizziness and Swelling in the ankles Meaningful Use Info Meaningful Use Diagnoses (Choose all that apply): None applicable Discharge Plan Admission Admit Date/Time: 05/10/21 00:19 Primary Reason for Your Visit: AUBREY on CKD 3B; anasarca Attending Provider: Suyapa Akers Primary Care Provider: Gino Lackey Consulting Providers: Marilin Geronimo Instructions Patient Instructions: Acute Kidney Failure Dc Discharge Orders/Prescriptions Prescriptions: New metoprolol tartrate 25 mg tablet 12.5 mg PO BID Qty: 30 RF: 1 hydralazine 50 mg tablet 50 mg PO BID Qty: 60 RF: 1 insulin detemir U-100 100 unit/mL (3 mL) insulin pen 25 unit subcut QHS Qty: 15 RF: 1 furosemide [Lasix] 80 mg tablet 80 mg PO BID Qty: 60 RF: 1 Continued tizanidine 4 mg tablet 6 mg PO .four times daily RF: 0 omega-3 fatty acids-fish oil 1 EACH capsule,delayed release(DR/EC) 4 ea PO QHS RF: 0 pregabalin 75 MG capsule 100 mg PO TID RF: 0 Pain Pump (Pt's Own) 1 UNIT Pump 1.1993 mg subcut CONT RF: 0 Cbd Oil 1 dose PO/SL QHS RF: 0 Testrome 1 applic miscellaneous DAILY RF: 0 Discontinued lisinopril 30 mg tablet 30 mg PO DAILY RF: 0 metformin 1,000 MG tablet 1,000 mg PO DINNER RF: 0 amlodipine 5 MG tablet 7.5 mg PO DAILY RF: 0 insulin detemir U-100 100 unit/mL (3 mL) Insulin Pen 55 unit SUBCUT QHS RF: 0 Referrals / Follow Up: Marilin Geronimo MD [STAFF PHYSICIAN] - (05/16/2021) Gino Lackey MD [Primary Care Provider] - Within 2 Weeks Disposition Disposition (needs filled in before D/C Order can be placed): Home, Self Care Charges/Coding Visit Charges Inpatient E&M: 28271 Disch Hosp
--- NOTE | 2021-05-14 12:16 | PCM.PN.REN ---
Subjective Subjective no new complaints. breathing is better. edema is better. Objective Data Objective Data Vital Signs: Vital Signs Temp Pulse Resp BP Pulse Ox 98.2 F 74 16 168/73 H 97 05/14/21 08:37 05/14/21 08:45 05/14/21 08:37 05/14/21 08:45 05/14/21 08:37 Oxygen Flow Rate (L/min) [10] 2 Oxygen Flow Rate (L/min) [9] 2 Oxygen Flow Rate (L/min) [8] 2 Oxygen Flow Rate (L/min) [7] 2 Oxygen Flow Rate (L/min) [6] 2 Oxygen Flow Rate (L/min) 2 Oxygen Delivery Method [10] Nasal Cannula Oxygen Delivery Method [9] Nasal Cannula Oxygen Delivery Method [8] Nasal Cannula Oxygen Delivery Method [7] Nasal Cannula Oxygen Delivery Method [6] Nasal Cannula Oxygen Delivery Method [5] Room Air Oxygen Delivery Method [4] Room Air Oxygen Delivery Method [3] Room Air Oxygen Delivery Method [2] Room Air Oxygen Delivery Method [1 ( Room Air Initial Baseline)] Oxygen Delivery Method Room Air Weight: 96.3 kg Body Mass Index (BMI) 31.8 Intake & Output: Intake and Output for Last 24 Hours 05/12/21 05/13/21 05/14/21 23:59 23:59 23:59 Intake Total 1220 / 1220 441.75 / 441.75 Output Total 4200 / 4200 4050 / 4050 Balance -2980 / -2980 -3608.25 / -3608.25 Lab / Micro Data Result Diagrams: 05/14/21 05:36 05/14/21 05:36 Labs: Laboratory Results - last 24 hr 05/13/21 12:47: POC Glucose 90 05/13/21 17:16: POC Glucose 163 H 05/13/21 20:11: POC Glucose 235 H 05/14/21 05:36: WBC 7.2, RBC 5.75, Hgb 16.7 H, Hct 49.4, MCV 85.9, MCH 29.0, MCHC 33.8, RDW Std Deviation 58.0 H, RDW Coeff of Vick 19.2 H, Plt Count 314, MPV 10.2, Immature Gran % (Auto) 0.400, Neut % (Auto) 74.2 H, Lymph % (Auto) 10.5 L, [place] % (Auto) 11.7 H, Eos % (Auto) 2.5, Baso % (Auto) 0.7, Absolute Neuts (auto) 5.3, Absolute Lymphs (auto) 0.75 L, Nucleated RBC % 0 05/14/21 05:36: Sodium 140, Potassium 3.8, Chloride 103, Carbon Dioxide 28.0, Anion Gap 9, BUN 60 H, Creatinine 4.87 H, Estim Creat Clear Calc 15.20, Est GFR (MDRD) Af Amer 15 L, Est GFR (MDRD) Non-Af 13 L, BUN/Creatinine Ratio 12.3, Glucose 97, Calcium 9.0 05/14/21 06:46: POC Glucose 92 05/14/21 11:14: POC Glucose 152 H Micro: Microbiology 05/09/21 23:34 Nasal Secretion SARS-CoV-2 Antigen (Rapid) - Final Radiography Diagnostic Testing: Radiology Impression Biopsy CT 05/13/21 08:31 IMPRESSION: Technically successful random percutaneous CT biopsy of the lower pole of the left kidney, five 18-gauge core biopsy specimens obtained and sent to lab for analysis. Electronically Signed: Yuri Waldron MD at 13:15 EDT Tel , Service support , Physical Exam Narrative Alert awake oriented x 3 no obvious distress no pallor no icterus no JVD s1s2 no murmurs lungs clear abdomen soft no organomegaly 2+ lower extremity edema no cyanosis Assessment & Plan Assessment/Plan (1) AUBREY (acute kidney injury): PLAN: History of CKD stage IIIb with baseline creatinine around 1.8. His creatinine was close to baseline about 3 weeks ago. Now presented with acute kidney injury with creatinine of 5.27 (05/10/2021). At home he is on lisinopril which is currently on hold. Urine analysis shows mild protein, no leukocytes, mild RBC. CT abdomen without any hydronephrosis. CT chest with edema pattern. Acute kidney injury could be some form of glomerulonephritis, interstitial nephritis from quercitin Creatinine today is slightly better despite diuresis with Lasix s/p biopsy. No hematuria. No biopsy site swelling. Hemoglobin is okay. Called and spoke to pathology. Looks like it may be a poor specimen. Not sure how much information we will get. Preliminary results will be back tomorrow afternoon. Okay to discharge home today and follow-up with me in the office on . Discussed with hospitalist. He has an appointment scheduled at 12:30 PM on May in my office in [place] (2) Acute hyperkalemia: PLAN: Potassium is better (3) Anasarca associated with disorder of kidney: PLAN: Continue Lasix with careful monitoring of renal function and electrolytes.
--- NOTE | 2021-05-14 12:53 | CASEMGMT ---
Per therapy, no further therapy recommended for pt. This RN CM to room and pt voices no concerns with going home at discharge. Pt voices no further questions/concern/needs and states has been in contact with nurse who will refill his pain pump in the next several days. SStaten RN CM
[2021-05-14 16:27] LABS: Complement C3 106 mg/dL (82-167); Perinuclear Ab (P-ANCA) <1:20 titer (Neg:<1:20)
--- NOTE | 2021-05-15 16:37 | CASEMGMT ---
[facility] DC F/u Call DC Date: 05.14.21 DC Diagnosis: Anasarca associated with disorder of kidney, AUBREY DC Disposition: Home Lace/Strata: 21/10 Called patient listed number on demographics. Patient answered, this content writer introduced self and role. Patient states still feeling weak but not worse than at DC and states just needs to get some rest at home. Has a f/u with straightening press operator helper tomorrow. Confirmed picked up his DC medications. Denies any issues, concerns, questions with medications, ACI or f/u. States if needing anything clarified will get that done tomorrow at straightening press operator helper appointment. Nabeel Horn RNCM
== END 2021-05-14 14:08 | disposition home or self-care (01) | DRG 683 ==
LOC: ED 23:44 → PCU 05-10 04:36
PROVIDERS: Internal Medicine; Internal Medicine Nephrology; Nurse Practitioner Family; Admitting Provider Hospitalist; Emergency Provider Emergency Medicine; PCP Family Medicine; Visit Provider Student in an Organized Health Care Education/Training Program
DX: N17.9 Acute kidney failure, unspecified (principal); I13.0 Hypertensive heart and chronic kidney disease with heart failure and stage 1 through stage 4 chronic kidney disease, or unspecified chronic kidney disease; I50.32 Chronic diastolic (congestive) heart failure; R18.8 Other ascites; E87.5 Hyperkalemia; E11.22 Type 2 diabetes mellitus with diabetic chronic kidney disease; N18.32 Chronic kidney disease, stage 3b; E11.65 Type 2 diabetes mellitus with hyperglycemia; Z20.822 Contact with and (suspected) exposure to COVID-19; G89.29 Other chronic pain; G47.30 Sleep apnea, unspecified; H91.93 Unspecified hearing loss, bilateral; Z79.4 Long term (current) use of insulin; Z79.899 Other long term (current) drug therapy
CPT/HCPCS: 36415; 71250; 74176; 76536; 77012; 80048; 80053; 81001; 82784; 82962; 83735; 83880; 83930; 83935; 84100; 84132; 84165; 84300; 84443; 84484; 85025; 85610; 85730; 86160; 86225; 86256; 86334; 87426; 88300; 88305; 88313; 93005; 93306; 94640; 97162; 97802; 99156; 99157; 99285; J7040; Q9957; A4216; C8929; J1940; J3490

== ENCOUNTER → 2021-05-16 13:24 | Outpatient (CLI) | payer OTHER, SELFPAY ==
[2021-05-16 14:30] LABS: Anion Gap 8 (5-15); BUN 58 mg/dL (7-18); BUN/Creat Ratio 12.2 RATIO (10-20); Chloride 101 mmol/L (98-107); Creatinine, Serum 4.75 mg/dL (0.70-1.30); EST Glomerular Filtration Rate 13 mL/min (>60); Est Glom Filt Rate - Afr Amer 16 mL/min (>60); Glucose 131 mg/dL (74-106); Potassium 4.1 mmol/L (3.5-5.1); Sodium Level 138 mmol/L (136-145)
== END ==
PROVIDERS: PCP Family Medicine; Referring Provider Family Medicine; Visit Provider Internal Medicine Nephrology
DX: N18.32 Chronic kidney disease, stage 3b (principal)
CPT/HCPCS: 36415; 80048

== ENCOUNTER → 2021-05-21 09:18 | Outpatient (CLI) | payer OTHER, SELFPAY ==
[2021-05-21 11:10] LABS: Anion Gap 9 (5-15); BUN 58 mg/dL (7-18); BUN/Creat Ratio 12.1 RATIO (10-20); Calcium,Total 8.9 mg/dL (8.5-10.1); Chloride 101 mmol/L (98-107); Creatinine, Serum 4.78 mg/dL (0.70-1.30); EST Glomerular Filtration Rate 13 mL/min (>60); Est Glom Filt Rate - Afr Amer 16 mL/min (>60); Glucose 171 mg/dL (74-106); Potassium 4.2 mmol/L (3.5-5.1); Sodium Level 137 mmol/L (136-145)
== END ==
PROVIDERS: PCP Family Medicine; Referring Provider Internal Medicine Nephrology; Visit Provider Internal Medicine Nephrology
DX: N18.32 Chronic kidney disease, stage 3b (principal)
CPT/HCPCS: 36415; 80048

== ENCOUNTER 2021-05-25 00:36 | Emergency (ER) | payer OTHER, SELFPAY ==
[2021-05-25 00:38] VITALS: BP 218/85; PULSE 84; RESP 16; TEMP 37; O2SAT 98; BMI 32.3
--- NOTE | 2021-05-25 00:52 | EX.ED.DYSGE1 ---
HPI History of Present Illness Chief Complaint: Abd Pain Informant: patient and spouse/S.O. Onset/Context/Timing Onset: Yesterday Context: Gradual Onset Current Severity: Mild Maximum Severity: Moderate Narrative Narrative: Patient presents with pain in the left lower flank region. He states he has body pain all the time but really noted this particular area becoming more painful yesterday. Patient was admitted to the hospital recently for AUBREY and hyperkalemia. He had a left renal biopsy at that time. He is urinating okay and did not no obvious hematuria. No ecchymosis or rash noted to the area. [facility] Medical History Alcohol use Cancer Chronic pain Diabetes Edema Hearing loss, left Hearing loss, right HNP (herniated nucleus pulposus), cervical Hypertension Injury of head and neck Kidney disease Kidney disease Non-smoker Presence of intrathecal pump Sleep apnea Wears glasses Home Medications omega-3 fatty acids-fish oil 4 ea PO QHS 06/12/15 [History Last Taken 12/14/20] pregabalin 100 mg PO TID 04/11/17 [History Last Taken 05/09/21 100 mg] Pain Pump (Pt's Own) 1.1993 mg SUBCUT CONT 03/03/18 [History Last Taken 12/16/20] Cbd Oil 1 dose PO/SL QHS 12/07/20 [History Last Taken 05/09/21] Testrome 1 applic MISCELLANEOUS DAILY 12/16/20 [History Last Taken 05/09/21] tizanidine 4 mg tablet 6 mg PO .four times daily tab 04/19/21 [History Last Taken 05/09/21 6 mg] furosemide [Lasix] 80 mg PO BID #60 tab 05/14/21 [Rx Last Taken Unknown] hydralazine 50 mg PO BID #60 tab 05/14/21 [Rx Last Taken Unknown] insulin detemir U-100 25 unit SUBCUT QHS #15 ml 05/14/21 [Rx Last Taken Unknown] metoprolol tartrate 12.5 mg PO BID #30 tab 05/14/21 [Rx Last Taken Unknown] Allergy/AdvReac Type Severity Reaction Status Date / Time pollen extracts Allergy Itching Verified 05/25/21 00:38 Eyuuulp-Kfr-Oqa Reductase AdvReac Pain in Verified 05/25/21 00:38 Inhibitor joints Family History Mother Cancer Father Heart disease Surgical History History of colonoscopy S/P cervical spinal fusion Status post insertion of intrathecal pump Social History Smoking Status: Never smoker ROS ROS ED Constitutional Constitutional ED: Denies chills or fever(s) Eyes Eyes: Denies change in vision ENT ENT ED: Denies sore throat Cardiovascular Cardiovascular: Denies chest pain Respiratory/Chest Respiratory/Chest: Denies cough or dyspnea Gastrointestinal Gastrointestinal: Reports abdominal pain; Denies diarrhea, nausea or vomiting Genitourinary Genitourinary ED: Denies dysuria Musculoskeletal Musculoskeletal: Reports back pain and other Details: Chronic back pain, unchanged from baseline Integumentary Denies rash Allergic/Immunologic Allergic/Immunologic ED: Denies urticaria EXAM Physical Exam Const Vital Signs: 05/25/21 00:38 05/25/21 01:00 05/25/21 01:35 Temperature 98.6 F Temperature Source Temporal Pulse Rate 84 82 Respiratory Rate 16 16 17 Blood Pressure 218/85 H 226/94 H 176/76 H Blood Pressure Mean 129 138 109 Pulse Ox 98 97 94 Oxygen Delivery Method Room Air Room Air Room Air Positive well nourished and well developed General Appearance ED: well developed HEENT Reports moist mucous membranes Eyes PERRL and EOMs intact bilaterally Neck supple Chest Wall inspection of chest normal and palpation of chest normal Resp normal respiratory effort and clear to auscultation bilaterally Cardio regular rate and regular rhythm GI normal to inspection, nondistended, normoactive bowel sounds and non-tender GI Narrative: No ecchymosis or rash noted today area where he describes pain. Palpation: soft Extremity normal to inspection Neuro oriented x3 Sensorium / Orientation: alert Psych mental status grossly normal Skin no rashes or lesions noted MDM MDM MDM Narrative Medical decision making narrative: Patient declined anything for pain at this time. Lab work, urinalysis, CT flank ordered. He was given 20 mg of IV labetalol for blood pressure control. Lab Data Attestation: I reviewed the patient's lab results. Labs: Laboratory Results - last 24 hr 05/25/21 05/25/21 05/25/21 00:56 00:56 01:10 WBC 6.2 RBC 5.48 Hgb 16.0 Hct 48.0 MCV 87.6 MCH 29.2 MCHC 33.3 RDW Std Deviation 54.2 H RDW Coeff of Vick 16.9 H Plt Count 309 MPV 10.5 Immature Gran % (Auto) 0.300 Neut % (Auto) 70.9 H Lymph % (Auto) 10.1 L Kemper % (Auto) 11.9 H Eos % (Auto) 6.3 H Baso % (Auto) 0.5 Absolute Neuts (auto) 4.4 Absolute Lymphs (auto) 0.63 L Nucleated RBC % 0 Sodium 136 Potassium 3.8 Chloride 101 Carbon Dioxide 29.0 Anion Gap 6 BUN 50 H Creatinine 4.49 H Estim Creat Clear Calc 16.48 Est GFR (MDRD) Af Amer 17 L Est GFR (MDRD) Non-Af 14 L BUN/Creatinine Ratio 11.1 Glucose 279 H Calcium 9.3 Urine Color Yellow Urine Clarity Clear Urine pH 6.0 Ur Specific [place] 1.015 Urine Protein 30 H Urine Glucose (UA) 1000 H Urine Ketones Negative Urine Occult Blood 10 H Urine Nitrite Negative Urine Bilirubin Negative Urine Urobilinogen Normal Ur Leukocyte Esterase Negative Urine RBC 0 SEEN Urine WBC 0 SEEN Ur Squamous Epith Cells 0 SEEN Urine Bacteria RARE Urine Mucus 0 SEEN Radiography Diagnostic Testing: Clinical Impression(s) from Imaging Studies Abdomen/Pelvis CT 05/25/21 01:42 IMPRESSION: 1. No evidence of hydronephrosis or acute left renal hemorrhage. Likely small amount of residual hemorrhage in the left perinephric space. 2. Questionable mass in the cecum as above. Consider colonoscopy to further evaluate 3. No evidence of bowel obstruction. Chronic diverticulosis without acute diverticulitis. Electronically Signed: Cem Rivera DO at 2:45 EDT Tel , Service support , Treatment and Re-Evaluation Comments:: On repeat evaluation patient resting comfortably. Blood pressure has improved and was 138 systolic on repeat evaluation. Lab work reveals chronic renal insufficiency, improved when compared to recent values. Urinalysis significant for glucose but no sign of infection or hematuria. CT scan reveals a small amount of residual hemorrhage from the time of his biopsy, no acute hemorrhage noted. Questionable mass noted in the cecum. He did have a CT scan done in late April that did not reveal this. This was discussed with patient and at bedside to ensure they have close follow-up. Overall patient is reassured with our findings here. He just had his blood pressure medications changed when he was discharged from the hospital. I did recommend he keep a journal of this and take to his next doctor's appointment as it may need adjusted. We discussed close glucose control as well. Return instructions are provided. Discharge Plan Triage Chief Complaint: Abd Pain ED Provider: Chasity Monique Dx/Rx/DC Orders Clinical Impression: Flank pain Instructions: ED Flank Pain, Uncertain Cause Prescriptions: No Action tizanidine 4 mg tablet 6 mg PO .four times daily RF: 0 omega-3 fatty acids-fish oil 1 EACH capsule,delayed release(DR/EC) 4 ea PO QHS RF: 0 pregabalin 75 MG capsule 100 mg PO TID RF: 0 Pain Pump (Pt's Own) 1 UNIT Pump 1.1993 mg subcut CONT RF: 0 Cbd Oil 1 dose PO/SL QHS RF: 0 Testrome 1 applic miscellaneous DAILY RF: 0 metoprolol tartrate 25 mg tablet 12.5 mg PO BID Qty: 30 RF: 1 hydralazine 50 mg tablet 50 mg PO BID Qty: 60 RF: 1 insulin detemir U-100 100 unit/mL (3 mL) insulin pen 25 unit subcut QHS Qty: 15 RF: 1 furosemide [Lasix] 80 mg tablet 80 mg PO BID Qty: 60 RF: 1 Primary Care Provider: Gino Lackey Referrals: Gino Lackey MD [Primary Care Provider] - 1-2 Weeks Disposition Disposition: Home, Self Care
[2021-05-25 01:00] VITALS: BP 226/94; RESP 16; O2SAT 97
[2021-05-25] MEDS: Labetalol (Prefilled) 20 MG/4 ML IV (01:05)
[2021-05-25 01:08] LABS: Absolute Lymphocyte Count 0.63 X10^3/uL (0.83-4.51); Absolute Neutrophil Count 4.4 X10^3/uL (2.0-7.7); Basophil# 0.03 X10^3/uL; Basophil% 0.5 % (0-1); Eosinophil# 0.39 X10^3/uL; Eosinophils% 6.3 % (0-5); Lymphocyte # 0.63 X10^3/ul (0.83-4.51); Lymphocyte % 10.1 % (19-41); Mean Corp Hgb Conc 33.3 g/dL (32-36); Mean Corpuscular Hgb 29.2 pg (27.0-32.0); Mean Corpuscular Volume 87.6 fL (80-94); Mean Platelet Vol. 10.5 fl (6.2-12.0); Monocyte# 0.74 X10^3/uL; Monocyte% 11.9 % (0-10); NRBC Flagged by Analyzer 0 % (0-5); Neutrophil # 4.42 X10^3/uL (2.7-7.7); Neutrophil % 70.9 % (47-70); Platelet Count 309 K/mm3 (150-450); RBC Distribution Width CV 16.9 % (11.6-14.6); RBC Distribution Width SD 54.2 fl (35.1-43.9); Red Blood Count 5.48 M/mm3 (4.6-6.2); White Blood Count 6.2 K/mm3 (4.4-11.0)
[2021-05-25 01:31] LABS: Mucous, Urine 0 SEEN /hpf (<or=2+); Red Blood Cells-Urine 0 SEEN /hpf (0-5); Squamous Epithelial Cells - UA 0 SEEN /hpf (0-5); White Blood Cells 0 SEEN /hpf (0-5)
[2021-05-25 01:31] LABS: Anion Gap 6 (5-15); BUN 50 mg/dL (7-18); BUN/Creat Ratio 11.1 RATIO (10-20); Calcium,Total 9.3 mg/dL (8.5-10.1); Chloride 101 mmol/L (98-107); Creatinine, Serum 4.49 mg/dL (0.70-1.30); EST Glomerular Filtration Rate 14 mL/min (>60); Est Glom Filt Rate - Afr Amer 17 mL/min (>60); Estimated Creatinine Clearance 16.48 ml/min; Glucose 279 mg/dL (74-106); Potassium 3.8 mmol/L (3.5-5.1); Sodium Level 136 mmol/L (136-145)
[2021-05-25 01:32] LABS: Color, Urine Yellow (Yellow); Glucose, Dipstick 1000 mg/dl (Normal); Ketone-Dipstick Negative (Negative); Leukocyte Esterase-Dipstick Negative /ul (Negative); Nitrite-Dipstick Negative (Negative); Occult Blood-Urine 10 /ul (Negative); Protein-Dipstick 30 mg/dl (Negative); Specific Gravity, Urine 1.015 (1.002-1.030); Urine Bilirubin Dipstick Negative (Negative); Urine Clarity Clear (Clear); Urine Urobilinogen Normal (Normal)
[2021-05-25 01:35] VITALS: BP 176/76; PULSE 82; RESP 17; O2SAT 94
[2021-05-25 01:39] LABS: Bacteria RARE /hpf (None Seen)
--- NOTE | 2021-05-25 01:42 | CT_ITS ---
STUDY: CT ABDOMEN AND PELVIS WITHOUT CONTRAST REASON FOR EXAM: Male, 66 years old. left flank pain -- recent renal biopsy RADIATION DOSAGE (If Supplied By Facility): CTDIvol = ( 17.40 ) mGy, DLP = ( 965.11 ) mGycm TECHNIQUE: Transaxial images were obtained from the dome of the diaphragm to the symphysis pubis without oral contrast, and without intravenous contrast. Sagittal and coronal images were reconstructed. Individualized dose optimization techniques were used for this CT. COMPARISON: 05/31/2015 FINDINGS: The visualized lung bases are unremarkable. The visualized portions of the heart are within normal limits. Normal liver. Normal gallbladder and extrahepatic biliary system. Normal spleen. Normal pancreas. Normal bilateral adrenal glands. Normal right kidney. Normal left kidney. Small amount of residual hemorrhage in the left perinephric space. There is a small hiatal hernia. Normal small intestine. There are multiple colonic diverticula consistent with diverticulosis. There is non-visualization of the appendix. Questionable mass in the cecum measuring 3.7 x 3.5 cm. Normal abdominal aorta. Normal inferior vena cava. Normal retroperitoneum. Under distended urinary bladder. There are prostatic calcifications. Normal abdominal wall. Normal osseous structures. CT/Abdomen/Pelvis without Cont IMPRESSION: 1. No evidence of hydronephrosis or acute left renal hemorrhage. Likely small amount of residual hemorrhage in the left perinephric space. 2. Questionable mass in the cecum as above. Consider colonoscopy to further evaluate 3. No evidence of bowel obstruction. Chronic diverticulosis without acute diverticulitis. Electronically Signed: Cem Rivera DO at 2:45 EDT Tel , Service support ,
[2021-05-25 03:11] VITALS: BP 159/68; PULSE 73; RESP 16; O2SAT 94
== END 2021-05-25 03:11 | disposition home or self-care (01) ==
PROVIDERS: Emergency Provider Emergency Medicine; PCP Family Medicine
DX: R10.9 Unspecified abdominal pain (principal); M54.9 Dorsalgia, unspecified; G89.29 Other chronic pain; I12.9 Hypertensive chronic kidney disease with stage 1 through stage 4 chronic kidney disease, or unspecified chronic kidney disease; E11.22 Type 2 diabetes mellitus with diabetic chronic kidney disease; N18.9 Chronic kidney disease, unspecified; H91.93 Unspecified hearing loss, bilateral; G47.30 Sleep apnea, unspecified; Z79.4 Long term (current) use of insulin; Z79.899 Other long term (current) drug therapy
CPT/HCPCS: 74176; 80048; 81001; 85025; 96374; 99285; A4216

== ENCOUNTER 2021-06-07 07:55 | Day surgery (SDC) | payer OTHER, SELFPAY ==
[2021-06-07] VITALS (7 sets, daily range): BP systolic 123–195; BP diastolic 57–96; PULSE 60–80; RESP 16; TEMP 36.1–36.7; O2SAT 95–97; BMI 29.7
[2021-06-07] MEDS: Lactated Ringers 1,000 ML 100 ML IV ×2 (08:10→10:11)
--- NOTE | 2021-06-07 09:14 | HP.PCM_ITS ---
History and Physical Date of Admission: 06/07/21 Intake Intake Visit Reasons: CSCOPE, EGD/ CECAL MASS Chief Complaint: chest soreness, cough Allergies pollen extracts Allergy (Verified 05/25/21 00:38) Itching Kcjkfzu-Gjr-Sxz Reductase Inhibitor Adverse Reaction (Verified 05/25/21 00:38) Pain in joints Medications omega-3 fatty acids-fish oil 4 ea PO QHS 06/12/15 [History Confirmed 05/31/21] pregabalin 100 mg PO TID 04/11/17 [History Confirmed 05/31/21] Pain Pump (Pt's Own) 1.1993 mg SUBCUT CONT 03/03/18 [History Confirmed 05/31/21] Cbd Oil 1 dose PO/SL QHS 12/07/20 [History Confirmed 05/31/21] Testrome 1 applic MISCELLANEOUS DAILY 12/16/20 [History Confirmed 05/31/21] tizanidine 4 mg tablet 6 mg PO .four times daily tab 04/19/21 [History Confirmed 05/31/21] furosemide [Lasix] 80 mg PO BID #60 tab 05/14/21 [Rx Confirmed 05/31/21] hydralazine 50 mg PO BID #60 tab 05/14/21 [Rx Confirmed 05/31/21] insulin detemir U-100 25 unit SUBCUT QHS #15 ml 05/14/21 [Rx Confirmed 05/31/21] metoprolol tartrate 12.5 mg PO BID #30 tab 05/14/21 [Rx Confirmed 05/31/21] omeprazole 40 mg capsule,delayed release 40 mg PO DAILY #60 cap 05/31/21 [Rx Confirmed 05/31/21] PFSH Medical History Alcohol use Cancer Chronic pain Diabetes Edema Hearing loss, left Hearing loss, right HNP (herniated nucleus pulposus), cervical Hypertension Injury of head and neck Kidney disease Kidney disease Non-smoker Presence of intrathecal pump Sleep apnea Wears glasses Surgical History History of colonoscopy S/P cervical spinal fusion Status post insertion of intrathecal pump Family History Mother Cancer Father Heart disease Social History Smoking Status: Never smoker HPI HPI HPI: PAOLA LOPEZ, is a 66 M who presents to the office today for several issues. Patient reports he is having epigastric pain especially with eating. Patient also has a history of iron deficiency anemia. Patient was also recently in the hospital a CT scan showed possible cecal mass. He is not having any blood in the stool and had a colonoscopy 3 years ago. ROS General General: No weight change, appetite, fatigue, colon cancer, breast cancer or weakness HEENT HEENT: No difficulty swallowing, eye injury, eye surgery, swollen glands or hoarseness Endo Endocrine: Yes diabetes mellitus; No thyroid disease, thyroid cancer, Hair loss, heat intolerance or cold intolerance Skin Skin: Yes changing moles; No rash Breast Breast: No left breast lump, right breast lump, nipple discharge, breast pain, abnormal mammogram, abnormal US or breast enlargement Musc Musculoskeletal: Yes back problems and arthritis; No rheumatoid arthritis, gout or joint pain Cardio Cardiovascular: No murmur, pacemaker, heart disease, atrial fibrillation, high blood pressure, heart attack, heart stent, palpitations, shortness of breat with exertion or chest pain Psych Psychiatric: No depression, anxiety or hearing voices Resp Respiratory: No shortness of breath, No sleep apnea, No cough, No COPD, No asthma, No emphysema and No wheezing Gastro Gastrointestinal: Yes abdominal pain, No nausea or vomiting, No diarrhea, Yes constipation, No blood in stool, No acid reflux, No hemorrhoids, No ulcers, No gallbladder problem and No black,tarry stools Joel Hematologic: No blood thinners, No blood disorders, No bleeding, No anemia and No blood clots Neuro Neurologic: No system reviewed and no additional complaints, except as documented, No as per HPI, No abnormal gait, No abnormal hearing, No abnormal movements, No abnormal speech, No behavioral changes, No burning sensations, No confusion, No convulsions, No disequilibrium, No dizziness, No localized weakness, No frequent falls, No headache(s), No lack of coordination, No loss of vision, No memory loss, Yes numbness, No other visual disturbances, No radicular pain, No restless legs, No sensory deficit, No syncope, Yes tingling, No tremor(s), No weakness and No other Exam Const General: cooperative Orientation: alert and oriented x3 HENMT Head: normal to inspection Neck Neck: normal visual inspection and full ROM Chest Chest palpation & inspection: normal inspection of the chest Resp Effort & Inspection: normal respiratory effort Auscultation: clear to auscultation bilaterally Cardio Rate: regular rate Rhythm: regular rhythm GI Inspection: non-distended Palpation: soft and nontender Skin General: no rashes or lesions noted Neuro General: patient alert and patient oriented x3 Extrem General: full ROM Psych Appearance: grossly normal Mental Status: mental status grossly normal Assessment and Plan Assessment and Plan (1) Epigastric pain: Status: Acute (2) Anemia: Status: Acute Qualifiers: Anemia type: iron deficiency Iron deficiency anemia type: unspecified iron deficiency Qualified Code(s): D50.9 - Iron deficiency anemia, unspecified (3) Abnormal CT scan, colon: Status: Acute Orders: Orders: EGD Today R10.13 Colonoscopy Today R93.3 Plan - Dr. Rudy Stovall MD: Patient been having epigastric pain and iron deficiency anemia. I started him on a PPI and I would like to perform an EGD at the same time of colonoscopy. Patient had recent CT scan which showed possible cecal mass. He had a colonoscopy which was normal 2018. Plan for repeat colonoscopy now. I explained endoscopy in detail to the patient. I explained the risks including but not limited to stroke or heart attack with anesthesia, perforation of the GI tract, bleeding, infection. I explained that any of these could necessitate further emergency surgery. The patient understands and all questions were answered sufficiently. The patient wishes to proceed with procedure. Rudy Stovall MD Pager: [facility] [address] [place] [address], [address] [place] [address] Office: I have re-examined the patient. There are no clinical changes since date of exam.
[2021-06-07] MEDS: Glucagon 1 MG/ML Syringe (09:50)
--- NOTE | 2021-06-07 10:14 | OP.CCLET_ITS ---
06/07/2021 Gino Lackey Re : Upper GI endoscopy procedure for German Fields Dear Ziyad This procedure was performed on Monday, June 07, 2021. My impressions and recommendations are as follows: Impressions : - Normal esophagus. - Normal stomach. - Normal examined duodenum. - No specimens collected. Recommendations : - Discharge patient to home. - Resume previous diet. - Continue present medications. My findings are described in the full procedure note, which is enclosed. If I can be of further assistance, please feel free to contact me at Doctor phone number(s): , Work: . Sincerely, Rudy Stovall MD 06/07/2021 10:14:21 AM This report has been signed electronically.
--- NOTE | 2021-06-07 10:14 | OP.EGD_ITS ---
Patient Name: German Fields Procedure Date: 06/07/2021 9:24 AM Date of : 1955 Age: 66 Procedure: Upper GI endoscopy Indications: Iron deficiency anemia Providers: Rudy Stovall MD Medicines: Monitored Anesthesia Care Patient Profile: This is a 66 year old male. Refer to note in patient chart for documentation of history and physical. Complications: No immediate complications. Procedure: Pre-Anesthesia Assessment: - Prior to the procedure, a History and Physical was performed, and patient medications and allergies were reviewed. The patient's tolerance of previous anesthesia was also reviewed. The risks and benefits of the procedure and the sedation options and risks were discussed with the patient. All questions were answered, and informed consent was obtained. Prior Anticoagulants: The patient has taken no previous anticoagulant or antiplatelet agents. After reviewing the risks and benefits, the patient was deemed in satisfactory condition to undergo the procedure. After obtaining informed consent, the endoscope was passed under direct vision. Throughout the procedure, the patient's blood pressure, pulse, and oxygen saturations were monitored continuously. The Endoscope was introduced through the mouth, and advanced to the second part of duodenum. The upper GI endoscopy was accomplished without difficulty. The patient tolerated the procedure well. Scope In: 9:33:41 AM Scope Out: 9:35:06 AM Total Procedure Duration Time 0 hours 1 minute 25 seconds Findings: The esophagus was normal. The stomach was normal. The examined duodenum was normal. Impression: - Normal esophagus. - Normal stomach. - Normal examined duodenum. - No specimens collected. Recommendation: - Discharge patient to home. - Resume previous diet. - Continue present medications. Procedure Code(s): --- Professional --- 95740, Esophagogastroduodenoscopy, flexible, transoral; diagnostic, including collection of specimen(s) by brushing or washing, when performed (separate procedure) Diagnosis Code(s): --- Professional --- D50.9, Iron deficiency anemia, unspecified CPT copyright 2017 [employer]. All rights reserved. The codes documented in this report are preliminary and upon auditing coder review may be revised to meet current compliance requirements. Rudy Stovall MD 06/07/2021 10:14:21 AM This report has been signed electronically. Number of Addenda: 0 Note Initiated On: 06/07/2021 9:24 AM
[2021-06-07 10:16] LABS: Bedside Glucose 86 mg/dL (70-110)
--- NOTE | 2021-06-07 10:25 | OP.COLON_ITS ---
Patient Name: German Fields Procedure Date: 06/07/2021 9:36 AM Date of : 1955 Age: 66 Procedure: Colonoscopy Indications: Abnormal CT of the GI tract Providers: Rudy Stovall MD Medicines: Monitored Anesthesia Care Patient Profile: This is a 66 year old male. Refer to note in patient chart for documentation of history and physical. Last Colonoscopy: 3 years ago. Complications: No immediate complications. Procedure: Pre-Anesthesia Assessment: - Prior to the procedure, a History and Physical was performed, and patient medications and allergies were reviewed. The patient's tolerance of previous anesthesia was also reviewed. The risks and benefits of the procedure and the sedation options and risks were discussed with the patient. All questions were answered, and informed consent was obtained. Prior Anticoagulants: The patient has taken no previous anticoagulant or antiplatelet agents. After reviewing the risks and benefits, the patient was deemed in satisfactory condition to undergo the procedure. After I obtained informed consent, the scope was passed under direct vision. Throughout the procedure, the patient's blood pressure, pulse, and oxygen saturations were monitored continuously. The Colonoscope was introduced through the anus and advanced to the cecum, identified by appendiceal orifice and ileocecal valve. The colonoscopy was performed with difficulty due to unsatisfactory bowel prep. The patient tolerated the procedure well. The quality of the bowel preparation was inadequate. Scope In: 9:37:56 AM Scope Withdrawal Time 0 hours 5 minutes 58 seconds Scope Out: 10:08:31 AM Total Procedure Duration Time 0 hours 30 minutes 35 seconds Findings: The entire examined colon appeared normal on direct and retroflexion views. Impression: - Preparation of the colon was inadequate. - The entire examined colon is normal on direct and retroflexion views. - No specimens collected. Recommendation: - Discharge patient to home. - Resume previous diet. - Continue present medications. - Repeat colonoscopy in 5 years for surveillance. Procedure Code(s): --- Professional --- 64882, Colonoscopy, flexible; diagnostic, including collection of specimen(s) by brushing or washing, when performed (separate procedure) Diagnosis Code(s): --- Professional --- R93.3, Abnormal findings on diagnostic imaging of other parts of digestive tract CPT copyright 2017 [employer]. All rights reserved. The codes documented in this report are preliminary and upon pain management nurse practitioner review may be revised to meet current compliance requirements. Rudy Stovall MD 06/07/2021 10:25:08 AM This report has been signed electronically. Number of Addenda: 0 Note Initiated On: 06/07/2021 9:36 AM
--- NOTE | 2021-06-07 10:25 | OP.CCLET_ITS ---
06/07/2021 Gino Lackey Re : Colonoscopy procedure for German Fields Dear Ziyad This procedure was performed on Monday, June 07, 2021. My impressions and recommendations are as follows: Impressions : - Preparation of the colon was inadequate. - The entire examined colon is normal on direct and retroflexion views. - No specimens collected. Recommendations : - Discharge patient to home. - Resume previous diet. - Continue present medications. - Repeat colonoscopy in 5 years for surveillance. My findings are described in the full procedure note, which is enclosed. If I can be of further assistance, please feel free to contact me at Doctor phone number(s): , Work: . Sincerely, Rudy Stovall MD 06/07/2021 10:25:08 AM This report has been signed electronically.
== END 2021-06-07 11:28 ==
LOC: EN 07:55 → AC 07:56
PROVIDERS: PCP Family Medicine; Referring Provider Family Medicine; Visit Provider Surgery
PROC: 0DJD8ZZ Inspection of Lower Intestinal Tract, Via Natural or Artificial Opening Endoscopic (ICD-10-PCS; CPT 45378; principal; 2021-06-07 09:10)
DX: D50.9 Iron deficiency anemia, unspecified (principal); R94.8 Abnormal results of function studies of other organs and systems; R10.13 Epigastric pain; G89.29 Other chronic pain; Z20.828 Contact with and (suspected) exposure to other viral communicable diseases; I10 Essential (primary) hypertension; H91.93 Unspecified hearing loss, bilateral; M19.90 Unspecified osteoarthritis, unspecified site; G47.30 Sleep apnea, unspecified; Z79.4 Long term (current) use of insulin; Z79.899 Other long term (current) drug therapy; Z86.718 Personal history of other venous thrombosis and embolism; Z97.8 Presence of other specified devices
CPT/HCPCS: 43235; 45378; 82962; 87426; J7120; J1610; J2405

== ENCOUNTER → 2021-06-12 09:55 | Outpatient (CLI) | payer OTHER, SELFPAY ==
[2021-06-12 11:02] LABS: Anion Gap 5 (5-15); BUN 39 mg/dL (7-18); BUN/Creat Ratio 9.5 RATIO (10-20); Chloride 100 mmol/L (98-107); Creatinine, Serum 4.09 mg/dL (0.70-1.30); EST Glomerular Filtration Rate 16 mL/min (>60); Est Glom Filt Rate - Afr Amer 19 mL/min (>60); Glucose 215 mg/dL (74-106); Potassium 4.2 mmol/L (3.5-5.1); Sodium Level 136 mmol/L (136-145)
== END ==
PROVIDERS: PCP Family Medicine; Visit Provider Internal Medicine Nephrology
DX: N18.32 Chronic kidney disease, stage 3b (principal)
CPT/HCPCS: 36415; 80048

== ENCOUNTER 2021-09-24 09:25 | Outpatient (CLI) | payer OTHER, SELFPAY ==
[2021-09-24 10:34] LABS: Anion Gap 3 (5-15); BUN 35 mg/dL (7-18); BUN/Creat Ratio 9.2 RATIO (10-20); Calcium,Total 8.6 mg/dL (8.5-10.1); Chloride 104 mmol/L (98-107); Creatinine, Serum 3.81 mg/dL (0.70-1.30); EST Glomerular Filtration Rate 17 mL/min (>60); Est Glom Filt Rate - Afr Amer 20 mL/min (>60); Glucose 178 mg/dL (74-106); Sodium Level 138 mmol/L (136-145)
== END 2021-09-24 23:59 | disposition home or self-care (01) ==
LOC: LAB 09:29
PROVIDERS: PCP Family Medicine; Referring Provider Internal Medicine Nephrology; Visit Provider Internal Medicine Nephrology
DX: N18.32 Chronic kidney disease, stage 3b (principal)
CPT/HCPCS: 36415; 80048

== ENCOUNTER 2021-10-09 10:06 | Outpatient (CLI) | payer OTHER, SELFPAY ==
--- NOTE | 2021-10-09 10:14 | VDLE_ITS ---
Reason For Study: Edema RIGHT LEFT GSV is normal. GSV is normal. CFV is compressible, spontaneous, phasic, CFV is compressible, spontaneous, phasic, competent and demonstrates normal competent, and demonstrates normal augmentation. augmentation. FV is compressible, spontaneous, phasic, FV is compressible, spontaneous, phasic, competent and demonstrates normal competent and demonstrates normal augmentation. augmentation. POP V is compressible, spontaneous, phasic, POP V is compressible, spontaneous, phasic, competent and demonstrates normal competent and demonstrates normal augmentation. augmentation. T/P Trunk is compressible. T/P Trunk is compressible. PTV is compressible. PTV is compressible. RT PerV is compressible. LT PerV is compressible. Procedure This is a venous duplex using B-mode, color flow and spectral Doppler. Exam performed in department. A preliminary report was called and/or faxed to [facility]. VL/Venous Duplex US - Noam Extrem Interpretation Summary Deep veins of the lower extremities are bilaterally patent and compressible seg mentally. There is no evidence of deep vein thrombosis on either side. Valvular competence appears in tact within the proximal deep venous systems bilaterally. The great saphenous veins appear bila terally patent and compressible segmentally. Ordering Physician: Marilin Geronimo Referring Physician: Gino Lackey Performed By: Harmony Cali RVT
== END 2021-10-09 23:59 | disposition home or self-care (01) ==
PROVIDERS: PCP Family Medicine; Referring Provider Internal Medicine Nephrology; Visit Provider Internal Medicine Nephrology
DX: N18.32 Chronic kidney disease, stage 3b (principal); R60.9 Edema, unspecified
CPT/HCPCS: 93970

== ENCOUNTER 2021-10-30 10:16 | Outpatient (CLI) | payer OTHER, SELFPAY ==
--- NOTE | 2021-10-30 10:17 | MRI_ITS ---
STUDY: MRI LUMBAR SPINE WITHOUT CONTRAST REASON FOR EXAM: Male, 66 years old. Low back pain and left leg pain. TECHNIQUE: Standardized fat and water weighted pulse sequences were obtained in the sagittal and axial planes. COMPARISON: MRI lumbar spine without contrast 01/27/2017. CT abdomen and pelvis without contrast 05/27/2021. FINDINGS: T11-T12 and T12-L1: (Sagittal only). Normal endplates. Normal disc height, hydration and morphology. No ventral extradural defects. Normal central canal and bilateral intervertebral neural foramina. Normal lumbar lordosis. There is no substantial scoliosis. Normal conus medullaris that terminates at the lower T12 vertebral body level. L1-2: Normal endplates. Normal disc height, hydration and morphology. Normal bilateral facet joints. Normal central canal and bilateral lateral recesses. Normal bilateral intervertebral neural foramina. L2-3: Normal endplates. Normal disc height, hydration and morphology. Normal bilateral facet joints. Normal central canal and bilateral lateral recesses. Normal bilateral intervertebral neural foramina. L3-4: Normal endplates. Normal disc height, hydration and morphology. Normal bilateral facet joints. Normal central canal and bilateral lateral recesses. Normal bilateral intervertebral neural foramina. L4-5: Normal endplates. Minimal disc space height narrowing. No ventral extradural defect. Mild bilateral degenerative facet arthropathy. Normal central canal and bilateral lateral recesses. Normal bilateral intervertebral neural foramina. L5-S1: Normal endplates. Normal disc height, hydration and morphology. Moderate left degenerative facet arthropathy. Mild right degenerative facet arthropathy. Normal central canal and bilateral lateral recesses. Normal bilateral intervertebral neural foramina. Normal visualized sacral ala. Normal visualized paraspinous soft tissue structures. MRI/Spine Lumbar (Routine) IMPRESSION: 1. No MRI evidence of lumbar extruded disc fragment or spinal stenosis. 2. Moderate left L5-S1 degenerative facet arthropathy and mild right L5-S1 degenerative facet arthropathy but unchanged when compared to CT abdomen and pelvis of 05/25/2021. 3. Mild bilateral L4-L5 degenerative facet arthropathy unchanged when compared to 05/25/2021 CT. Electronically Signed: Diogo Olguin MD at 15:51 EDT ,
== END 2021-10-30 23:59 | disposition home or self-care (01) ==
PROVIDERS: PCP Family Medicine; Referring Provider Orthopaedic Surgery; Visit Provider Orthopaedic Surgery
DX: M51.26 Other intervertebral disc displacement, lumbar region (principal); M54.17 Radiculopathy, lumbosacral region
CPT/HCPCS: 72148

== ENCOUNTER 2021-11-26 09:22 | Outpatient (CLI) | payer OTHER, SELFPAY ==
[2021-11-26 11:09] LABS: PSA,Total - Annual Screen 1.23 ng/mL (0.00-4.00)
== END 2021-11-26 23:59 | disposition home or self-care (01) ==
LOC: LAB 09:23
PROVIDERS: PCP Family Medicine; Referring Provider Urology; Visit Provider Urology
DX: Z12.5 Encounter for screening for malignant neoplasm of prostate (principal)
CPT/HCPCS: 36415; 84153; G0103

== ENCOUNTER → 2022-12-16 | Outpatient (CLI) | payer OTHER, SELFPAY ==
--- NOTE | 2022-12-16 12:33 | MRI_ITS ---
HISTORY: pain. TECHNIQUE: Multiplanar and multisequence MR images of the cervical spine were obtained without contrast. 244 images. COMPARISON: XR 12/01/2022, MR 11/24/2020. FINDINGS: VERTEBRAE: Vertebral body heights maintained. Artifact from anterior spinal fusion hardware and interbody fusion material of C5-7. Mild degenerative bone marrow endplate changes above and below the level of fusion. VERTEBRAL ALIGNMENT: Straightening of the cervical lordosis without anterior or posterior subluxation. SPINAL CORD: Cervical cord signal and morphology within normal limits. SOFT TISSUES: No prevertebral fluid collection. INTERVERTEBRAL DISCS: C2-3: Right paracentral disc protrusion with uncovertebral and facet arthropathy resulting in minimal narrowing of the thecal sac and mild right foraminal narrowing , similar to prior. C3-4: Right paracentral disc protrusion with uncovertebral and facet arthropathy resulting in abutment of the right traversing nerve root, mild central canal stenosis, moderate right, and mild left foraminal narrowing similar to prior. C4-5: Mild posterior disc bulge osteophyte complex with uncovertebral and facet arthropathy resulting in minimal narrowing of the thecal sac and mild bilateral foraminal narrowing, similar to prior. C5-6: Decreased size of posterior disc protrusion at the postoperative level. Residual degenerative change with mild central canal stenosis and bilateral foraminal narrowing, similar to prior. C6-7: Decreased size of posterior disc protrusion at the postoperative level. Residual degenerative change. Minimal narrowing of the thecal sac, decreased from prior. Unchanged mild bilateral foraminal narrowing. C7-T1: No significant posterior disc protrusion, central canal stenosis, or foraminal narrowing. MRI/Spine Cervical (Routine) IMPRESSION: ACF C5-7 as above. Mild degenerative disc disease in the cervical spine as above. Electronically Signed: Melita Reyes MD at 13:35 EDT ,
== END | disposition home or self-care (01) ==
PROVIDERS: Referring Provider Orthopaedic Surgery; Visit Provider Orthopaedic Surgery
DX: M50.221 Other cervical disc displacement at C4-C5 level (principal)
CPT/HCPCS: 72141